=== PATIENT | male | born 1965 | race Caucasian/White ===

== ENCOUNTER 2024-10-01 19:16 | Inpatient (IN) ==
--- NOTE | 2024-10-01 19:46 | Emergency Department Note ---
Impression & Plan Adrenal insufficiency, Hypokalemia, Low magnesium level, Generalized weakness ED Provider Note NAME: BRENNEN BLOOM AGE: 58 SEX: M : 1965 ARRIVES VIA: Walk-In INFORMANT: Patient ED PROVIDER(S): Ganga Fuller MD CHIEF COMPLAINT: Adrenal crisis PLAN: Disposition: Admit MEDICAL DECISION MAKING: The patient is a pleasant 58-year-old gentleman with a past medical history of Ron's disease, adrenal insufficiency, CAD, hypothyroidism who presents to the emergency department for evaluation of generalized weakness, dizziness, malaise, confusion which is typical for his "adrenal crisis" per the patient's at the bedside which occurs in the setting of patient's discovering that he had not been taking his hydrocortisone for the past month as it is separate from his typical prepared pill packs from his pharmacy. 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 She reports she wanted them, earlier in the week and even called EMS but he had declined transport. The any fevers, cough, congestion, GI or symptoms. On evaluation the patient is fatigued appearing with stress, afebrile with blood pressure in the 90s/50s and heart rate in the upper 40s-low 50s, mentating normally at this time. He has no focal logic deficits. EKG without overt acute ischemia. CXR negative for acute cardiopulmonary process per my personal preliminary review/interpretation. WBC, H/H and platelets within normal limits. Chemistry without metabolic acidosis. Potassium 2.3 and magnesium 1.7 with IV repletion provided. LFTs unremarkable. High-sensitivity troponin 10.1, within normal limits. Lipase normal. TSH within limits. Random cortisol is 15.8. Patient was treated with IV fluid duration and IV hydrocortisone. The patient acute on chronic adrenal insufficiency with severe hypokalemia patient and agree plan for admission further management. Case was discussed with Dr. Villegas, [facility] hospitalist, who will evaluate the patient for admission. Further management per admitting team. Triage Nursing notes reviewed and agree them. Prior/external medical records reviewed Vital Signs: reviewed Differential diagnosis: Infection, dehydration, metabolic abnormality, hypo/hyperglycemia, electrolyte disturbance, anemia, hypoxia, cardiac sources, intracerebral event, toxicologic, neurologic, as well as other pathologies. ER treatment provided: See below. Diagnostics interpreted by me: ECG: Sinus bradycardia, 47 bpm, no ectopy, no overt ST elevation or depression, QTc 554 QRS 98. Cardiac Monitoring: An order for continuous cardiac monitoring was placed and demonstrated Sinus bradycardia, 47 bpm, no ectopy, Laboratory studies: See below Imaging studies: See below Consultation(s): Dr. Villegas, [facility] hospitalist HPI: The patient is a pleasant 58-year-old gentleman with a past medical history of [place]'s disease, adrenal insufficiency, CAD, hypothyroidism who presents to the emergency department for evaluation of generalized weakness, dizziness, malaise, confusion which is typical for his "adrenal crisis" per the patient's at the bedside which occurs in the setting of patient's discovering that he had not been taking his hydrocortisone for the past month as it is separate from his typical prepared pill packs from his pharmacy. 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 She reports she wanted them, earlier in the week and even called EMS but he had declined transport. The any fevers, cough, congestion, GI or symptoms. ROS: See above HPI for pertinent positives & negatives. A total of 10 systems reviewed and were otherwise negative. VITALS:See Below PHYSICAL EXAMINATION: GENERAL: Awake, alert, fatigued-appearing, in no distress HENT: Normocephalic, atraumatic. Oropharynx with dry mucous membranes and otherwise unremarkable. EYES: Normal conjunctiva. Sclera non-icteric. EOMI. No nystamgus. PEARRL. NECK: Supple. No nuchal rigidity. FROM. No JVD. RESPIRATORY: Clear to auscultation. CARDIAC: Regular rate, normal rhythm. Extremities warm and well perfused. Pulses equal. ABDOMEN: Soft, non-distended. No tenderness to palpation. No rebound or guarding. No masses. MUSCULOSKELETAL: Chest examination reveals no tenderness. The back is symmetrical on inspection without obvious abnormality. There is no CVA tenderness to palpation. No joint edema. LOWER EXTREMITIES: Calves are equal size bilaterally and non-tender. No edema. No discoloration. NEURO: Normal sensorium. No sensory or motor deficits noted. 5/5 strength and SILT x 4 extremities. Intact finger to nose. SKIN: No rash or jaundice noted. ED COURSE: Critical Care: I have personally spent greater than 35 minutes of critical care time in the direct management of this patient. This includes bedside care, interpretation of diagnostic studies, and testing, discussion with consultants, patient, and family members, and other required patient management activities. This 35 minutes is in excess of all separately billable procedures. Ganga Fuller MD Past Med/Surg History Problem List (Updated 10/02/24 @ 03:16 by Ganga Fuller MD) Generalized weakness (Acute) Low magnesium level (Acute) Hypokalemia (Acute) Hypokalemia Adrenomyeloneuropathy Depression Osteoporosis Adrenal insufficiency (Acute) Adreno-leukodystrophy Vitamin D deficiency B12 deficiency Coronary heart disease Mixed hyperlipidemia Chronic back pain Hypogonadotropic hypogonadism in male Complex regional pain syndrome of right upper extremity Hypothyroidism Peripheral neuropathy Chronic pain Medical History Lumbar radiculopathy IBS (irritable bowel syndrome) Nephrolithiasis JOSEPHINE (generalized anxiety disorder) Carpal tunnel syndrome Brachial plexopathy Surgical History H/O shoulder surgery H/O arthroscopy of shoulder Status post double vessel coronary artery bypass Family History Father Heart disease Mother Breast cancer Stroke Social History Smoking Status: Never smoker Tobacco Type: Smokeless Tobacco (Dip or Chew) Cigarettes Per Day: 1 can per day; Second Hand Exposure: No; Do You Dip or Chew Tobacco: Yes; Tobacco Cessation Education Requested by Patient: No Hx Alcohol Use: No Hx Substance Use: No Preferred Language: Greek Communication Ability: Effective Patch Driller Required: No Beliefs That Will Affect Care: None Current Living Situation: Spouse Other Information That Helps Us Care for You: No Feels Safe at Home: Yes Assistive Devices: Walker Allergies Allergies Allergy/AdvReac Type Severity Reaction Status Date / Time No Known Drug Allergies Allergy Verified 08/07/24 15:03 Home Meds Home Medications Medication Instructions Recorded Confirmed aspirin 81 mg tablet,delayed 81 mg PO DAILY 12/22/22 10/01/24 release (Adult Aspirin Regimen) atorvastatin 80 mg tablet 80 mg PO QPM 12/22/22 10/01/24 cyanocobalamin (vitamin B-12) 1,000 mcg IM MONTHLY 12/22/22 10/01/24 1,000 mcg/mL injection solution fludrocortisone 0.1 mg tablet 0.1 mg PO DAILY 12/22/22 10/01/24 pantoprazole 40 mg tablet,delayed 40 mg PO DAILY 12/22/22 10/01/24 release (Protonix) gabapentin 400 mg capsule 800 mg PO TID 04/03/23 10/01/24 metoprolol succinate 25 mg 12.5 mg PO DAILY 04/03/23 10/01/24 tablet,extended release 24 hr (Toprol XL) sacubitril 49 mg-valsartan 51 mg 1 tab PO BID 08/23/23 10/01/24 tablet (Entresto) cholecalciferol (vitamin D3) 25 25 mcg PO HS 04/12/24 10/01/24 mcg (1,000 unit) capsule (Vitamin D3) dapagliflozin propanediol 10 mg 10 mg PO DAILY 04/12/24 10/01/24 tablet (Farxiga) duloxetine 60 mg capsule,delayed 60 mg PO DAILY 04/12/24 10/01/24 release ergocalciferol (vitamin D2) 1,250 1,250 mcg PO WK 04/12/24 10/01/24 mcg (50,000 unit) capsule evolocumab 420 mg/3.5 mL 420 mg subcut MONTHLY 04/12/24 10/01/24 subcutaneous wearable injector (Repatha Pushtronex) duloxetine 30 mg capsule,delayed 30 mg PO DAILY 10/01/24 10/01/24 release Previous Rx's Medication Instructions Recorded hydrocortisone 10 mg tablet 20 mg (2 x 10 mg) PO DAILY #240 12/27/23 tabs levothyroxine 50 mcg tablet 50 mcg PO DAILY #90 tabs 07/10/24 baclofen 10 mg tablet 10 mg PO BID #60 tabs 07/19/24 Results & Data (ED) Vital Signs Vital Signs - 24 hr 10/01/24 19:16 10/01/24 19:22 10/01/24 19:38 Temperature 36.5 C Temperature Source Oral Pulse Rate 58 L 48 L Pulse Rate [Right Finger] 48 L Pulse Rhythm Regular Pulse Strength Normal Respiratory Rate 14 18 Respiratory Effort / Characteristics Non-Labored Non-Labored Spontaneous Respiratory Depth Normal Normal Respiratory Pattern Regular Regular Blood Pressure 96/58 L Blood Pressure [Right Arm] 93/62 L Blood Pressure Mean 70 Blood Pressure Mean [Right Arm] 72 Blood Pressure Position Sitting Blood Pressure Position [Right Arm] Lying Pulse Oximetry 95 99 Oxygen Delivery Method Room Air Room Air Sepsis Recent Fever Within 48 Hours No Sepsis New/Unexplained Change in Mental Status N/A Sepsis Action Taken by Nursing No Action Required 10/01/24 19:45 10/01/24 21:16 Temperature Temperature Source Pulse Rate 48 L Pulse Rate [Right Finger] 48 L Pulse Rhythm Pulse Strength Respiratory Rate 16 14 Respiratory Effort / Characteristics Non-Labored Respiratory Depth Normal Respiratory Pattern Regular Blood Pressure Blood Pressure [Right Arm] 91/60 L Blood Pressure Mean Blood Pressure Mean [Right Arm] 70 Blood Pressure Position Blood Pressure Position [Right Arm] Pulse Oximetry 95 97 Oxygen Delivery Method Room Air Room Air Sepsis Recent Fever Within 48 Hours Sepsis New/Unexplained Change in Mental Status Sepsis Action Taken by Nursing Laboratory Data Attestation: I reviewed the patient's lab results. 10/01/24 19:55 10/01/24 19:55 Lab Results 10/01/24 Range/Units 19:55 WBC 7.44 (4.8-10.8) K/ul RBC 4.76 (4.70-6.10) M/uL Hgb 15.9 (14.0-18.0) g/dl Hct 43.0 (42.0-52.0) % MCV 90.3 (80.0-100.0) fL MCH 33.4 (25.0-34.0) pg MCHC 37.0 H (32.0-36.0) g/dL RDW Std Deviation 49.9 H (36.4-46.3) fL RDW Coeff of Kale 15.1 H (11.5-14.5) % Plt Count 264 (130-400) K/uL MPV 10.9 (9.4-12.4) fL Immature Gran % (Auto) 0.3 % Neut % (Auto) 72.7 % Lymph % (Auto) 19.0 % [place] % (Auto) 6.7 % Eos % (Auto) 0.8 % Baso % (Auto) 0.5 % Neut # (Auto) 5.41 (1.40-6.50) K/uL Lymph # (Auto) 1.41 (1.20-3.40) K/uL [place] # (Auto) 0.50 (0.11-0.59) K/uL Eos # (Auto) 0.06 (0.00-0.50) K/uL Baso # (Auto) 0.04 (0.00-0.20) K/uL Immature Gran # (Auto) 0.02 (0.01-0.20) K/uL PT 11.3 (9.0-12.0) Seconds INR 1.0 (0.9-1.1) Sodium 135 L (136-145) mmol/L Potassium 2.3 L* (3.5-5.1) mmol/L Chloride 97 L (98-107) mmol/L Carbon Dioxide 29 (21-32) mmol/L Anion Gap 9 (3-11) BUN 10 (6-23) mg/dl Creatinine 1.07 (0.6-1.4) mg/dl Est Cr Clr Drug Dosing 77.7 ml/min eGFR 80.44 BUN/Creatinine Ratio 9.3 L (10-20) Glucose 116 H (70-99(Fasting)) mg/dl Osmolality 279 L (280-300) mOsm/kg Calcium 9.0 (8.6-10.3) mg/dl Magnesium 1.7 (1.7-2.4) mg/dl Total Bilirubin 1.8 H (0.2-1.0) mg/dl AST 27 (13-39) U/L ALT 9 (7-52) U/L Alkaline Phosphatase 65 (34-104) U/L Total Creatine Kinase 83 (30-223) U/L Troponin I High Sens 10.1 (0-20) pg/ml Total Protein 6.2 (6.0-8.3) gm/dl Albumin 3.4 (3.4-5.0) gm/dl Globulin 2.8 (2.5-4.0) gm/dl Albumin/Globulin Ratio 1.2 (0.9-2) Lipase 79 (11-82) U/L TSH 0.376 (0.300-4.500) uIu/ml Random Cortisol 15.85 mcg/dl Administered Medications Enoxaparin Sodium (Enoxaparin Inj 40 Mg/0.4 Ml Syr) 40 mg SQ HS [place] Stop: 10/31/24 23:29 Last Admin: 10/01/24 23:56 Dose: 40 mg Documented By: PAG Lactated Ringer's (Lr) 1,000 mls @ 125 mls/hr IV .Q8H [place] Stop: 10/02/24 22:30 Last Admin: 10/01/24 23:55 Dose: 125 mls/hr Documented By: PAG Hydrocortisone Sodium (Succinate 50 mg/ Syringe) 1 mls @ 4 mls/min IV Q6H [place] Stop: 11/01/24 01:59 Last Admin: 10/02/24 02:15 Dose: 4 mls/min Documented By: PAG Discontinued Medications Hydrocortisone Sodium Succinate (Hydrocortisone Sod Succinate 100 Mg/2 Ml Vial) 100 mg IV NOW STA Stop: 10/01/24 19:48 Last Admin: 10/01/24 20:13 Dose: 100 mg Documented By: TRELL Sodium Chloride (Nss) 500 mls @ 999 mls/hr IV .Q31M ONE Stop: 10/01/24 20:17 Last Infusion: 10/01/24 21:07 Dose: Infused Documented By: Admin: 10/01/24 20:13 Dose: 999 mls/hr Documented By: PAG Potassium Chloride (K Eliu / Wtr) 10 meq in 100 mls @ 100 mls/hr IV Q1H [place]; Protocol Stop: 10/01/24 23:14 Last Infusion: 10/02/24 00:54 Dose: Infused Documented By: Admin: 10/01/24 23:07 Dose: 100 mls/hr Documented By: Infusion: 10/01/24 22:21 Dose: Infused Documented By: Admin: 10/01/24 21:19 Dose: 100 mls/hr Documented By: PAG Magnesium Sulfate/Dextrose (Magnesium Sulfate / D5w) 1 gm in 100 mls @ 100 mls/hr IV NOW STA Stop: 10/01/24 22:07 Last Infusion: 10/01/24 22:21 Dose: Infused Documented By: Admin: 10/01/24 21:19 Dose: 100 mls/hr Documented By: PAG Sodium Chloride (Nss) 500 mls @ 999 mls/hr IV .Q31M ONE Stop: 10/01/24 21:51 Last Admin: 10/01/24 23:05 Dose: Not Given Documented By: PAG Potassium Chloride (Potassium Chloride Crtab 20 Meq Tabcr) 20 meq PO NOW STA Stop: 10/01/24 21:08 Last Admin: 10/01/24 21:19 Dose: 20 meq Documented By: TRELL Potassium Chloride (Potassium Chloride Crtab 20 Meq Tabcr) 60 meq PO NOW STA Stop: 10/01/24 23:26 Last Admin: 10/01/24 23:55 Dose: 60 meq Documented By: TRELL Imaging Data Radiologist's Impression: Chest X-Ray 10/01/24 19:45 Exam(s): XR CXR 1 VIEW EXAM: XR Chest, 1 View CLINICAL HISTORY: Reason for exam: weak. TECHNIQUE: Frontal view of the chest. COMPARISON: No relevant prior studies available. FINDINGS: Lungs: Unremarkable. No consolidation. Pleural space: Unremarkable. No pneumothorax. Heart: Unremarkable. No cardiomegaly. Mediastinum: Unremarkable. Normal mediastinal contour. Bones/joints: Unremarkable. No acute fracture. IMPRESSION: Normal chest x-ray. Electronically signed by: Mulugeta Pryor MD 10/01/24 21:44 PM Discharge Plan Visit Data Chief Complaint: Illness Stated Complaint: RON'S CRISIS ED Provider: Ganga Fuller Discharge Problem: Adrenal insufficiency, Hypokalemia, Low magnesium level, Generalized weakness Patient Disposition: Admitted As Inpatient Discharge Instructions Interventions: ED Discharge Assessment Last Done: 10/01/24 22:31
[2024-10-01] MEDS: HYDROCORTISONE SOD SUCCINATE 100 MG/2 ML VIAL IV STA (20:13)
[2024-10-01] MEDS: SODIUM CHLORIDE 0.9% 500 ML IV ONE ×2 (20:13→23:05)
[2024-10-01 20:17] LABS: Basophils # (auto) 0.04 K/uL (0.00-0.20); Basophils % (auto) 0.5 %; Eosinophils # (auto) 0.06 K/uL (0.00-0.50); Eosinophils % (auto) 0.8 %; Hemoglobin 15.9 g/dl (14.0-18.0); Immature Granulocytes # (auto) 0.02 K/uL (0.01-0.20); Immature Granulocytes % (auto) 0.3 %; Lymphocytes # (auto) 1.41 K/uL (1.20-3.40); Mean Corpuscular Hemoglobin 33.4 pg (25.0-34.0); Mean Corpuscular Volume 90.3 fL (80.0-100.0); Mean Platelet Volume 10.9 fL (9.4-12.4); Monocytes % (auto) 6.7 %; Neutrophils # (auto) 5.41 K/uL (1.40-6.50); Neutrophils % (auto) 72.7 %; Platelet Count 264 K/uL (130-400); RDW Coefficient of Variation 15.1 % (11.5-14.5); RDW Standard Deviation 49.9 fL (36.4-46.3); Red Blood Count 4.76 M/uL (4.70-6.10); White Blood Count 7.44 K/ul (4.8-10.8)
[2024-10-01 20:53] LABS: Albumin Globulin Ratio 1.2 (0.9-2); Albumin Level 3.4 gm/dl (3.4-5.0); BUN Creatinine Ratio 9.3 (10-20); Bilirubin,Total 1.8 mg/dl (0.2-1.0); Creatinine Clr Calc Pharmacy 77.7 ml/min; Globulin 2.8 gm/dl (2.5-4.0); Prothrombin Time 11.3 Seconds (9.0-12.0); Thyroid Stimulating Hormone 0.376 uIu/ml (0.300-4.500); Total Protein 6.2 gm/dl (6.0-8.3); Troponin I High Sensitivity 10.1 pg/ml (0-20)
[2024-10-01 21:04] LABS: Potassium 2.3 mmol/L (3.5-5.1)
[2024-10-01] MEDS: POTASSIUM CHLORIDE / WTR 10 MEQ/100 ML PLCT IV SCH (21:19)
[2024-10-01] MEDS: MAGNESIUM SULFATE / D5W 1 GM/100 ML BAG IV STA (21:19)
[2024-10-01] MEDS: POTASSIUM CHLORIDE CRTAB 20 MEQ TABCR PO STA ×2 (21:19→23:55)
--- NOTE | 2024-10-01 21:44 | XRay Report ---
Exam(s): XR CXR 1 VIEW EXAM: XR Chest, 1 View CLINICAL HISTORY: Reason for exam: weak. TECHNIQUE: Frontal view of the chest. COMPARISON: No relevant prior studies available. FINDINGS: Lungs: Unremarkable. No consolidation. Pleural space: Unremarkable. No pneumothorax. Heart: Unremarkable. No cardiomegaly. Mediastinum: Unremarkable. Normal mediastinal contour. Bones/joints: Unremarkable. No acute fracture. IMPRESSION: Normal chest x-ray. Electronically signed by: Mulugeta Pryor MD 10/01/24 21:44 PM
[2024-10-01 21:48] LABS: Magnesium 1.7 mg/dl (1.7-2.4)
[2024-10-01] MEDS ORDERED: ACETAMINOPHEN 325 MG TAB PO PRN (22:31)
--- NOTE | 2024-10-01 22:52 | History & Physical Report ---
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 Patient has not been taking his hydrocortisone at home for the past month. His has started him on Hydrocortisone 80mg po daily a few days ago. He has been taking his Fludrocortisone. Hypotensive and bradycardic on arrival, however, mentating and able to answer questions. Hemodynamics have improved after administration of Hydrocortisone 100mg IV. He does remain bradycardic. Random cortisol is not overly depressed = 15.63 Patient follows with Endocrine - last seen 08/07/24 -Admit to medical with telemetry -Hydrocortisone 100mg IV given in the ER -Will continue stress dose steroids with Hydrocortisone 50mg IV q 6 hours -Continue Fludrocortisone -Potassium repletion (2) Chronic pain: Plan: Patient with longstanding history of neuropathy and complex regional pain syndrome. His pain has been debilitating - difficulty with ambulation, getting out of bed. Symptoms contributing to significant depression. Patient is on Gabapentin as well as Duloxetine but has missed multiple doses of his medications over the last month. -Resume Gabapentin. He is written for 800mg po TID. Will initiate 300mg po TID for now - advance to prior dose of 800mg po TID as tolerated -Resume Cymbalta. Patient is written for delayed release 60mg po daily then 30mg po daily. Will initiate 30mg po daily for now - increase as tolerated to prior home dose. -Tylenol as needed -PT/OT evaluations appreciated (3) Hypokalemia: Plan: Potassium = 2.3. Patient is prescribed potassium supplementation at home but has not been taking it. He has received 20mEQ PO + 20mEQ IV thus far -Administer KCl 60mg PO now -Magnesium x 1gm -Repeat chemistry in AM (4) Depression: Plan: Patient with significant depression symptoms. He is prescribed Cymbalta more for his chronic pain and does not feel that it has been helping with his depression. Cymbalta has been resumed - should increase to previously prescribed dose as tolerated -Consider initiating Remeron for anti-depressant, appetite stimulation and sleep augmentation (5) Coronary heart disease: Plan: Patient with CAD s/p CABG in 2021. Presently with no chest pain. -Continue ASA 81mg po daily -Continue Atorvastatin 80mg po qPM - of note, CK ordered for evaluation of leg weakness and discomfort, if elevated would hold statin -Hold Entresto due to hypotension -Hold Metoprolol due to hypotension -Patient is on Rapatha injections monthly (6) Hypothyroidism: Plan: Chronic. 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 Patient's is at bedside and provides ancillary history. states that over the last month patient has declined significantly. states that after an argument approximately 1 month ago patient went upstairs to his bed and has essentially remained there ever since. He has poor appetite and does not eat or drink much at all. endorses a 40# weight loss over the last month. He does not participate with any therapy or do any home exercises. He has been missing some of his medications as well. His medications are packaged in a blister pack from pharmacy which DOES NOT contain his Hydrocort isone 20mg po daily (due to potential need for variable dosing/stress dosing). Patient's reports he has been taking his blister pack medications occasionally but has not taken his hydrocortisone for the last month. Patient has developed progressive pallor, appears dry and dehydrated, fatigue, generalized weakness, episodes of confusion and cold/chills. His noticed that he had not been taking his Hydrocortisone so she started him on stress dosing 80mg po daily last week. His symptoms have not yet improved. Upon arrival to the ER patient hypotensive at 80/54, bradycardic with HR of 48. ER Course: NSS 500mL x 2 Hydrocortisone 100mg IV Potassium 20mg + [id number] IV x2 Mg x 1gm Allergies Allergy/AdvReac Type Severity Reaction Status Date / Time No Known Drug Allergies Allergy Verified 08/07/24 15:03 Home Medications Medication Instructions Recorded Confirmed Type aspirin 81 mg tablet,delayed 81 mg PO DAILY 12/22/22 10/01/24 History release (Adult Aspirin Regimen) atorvastatin 80 mg tablet 80 mg PO QPM 12/22/22 10/01/24 History cyanocobalamin (vitamin B-12) 1,000 mcg IM MONTHLY 12/22/22 10/01/24 History 1,000 mcg/mL injection solution fludrocortisone 0.1 mg tablet 0.1 mg PO DAILY 12/22/22 10/01/24 History pantoprazole 40 mg tablet,delayed 40 mg PO DAILY 12/22/22 10/01/24 History release (Protonix) gabapentin 400 mg capsule 800 mg PO TID 04/03/23 10/01/24 History metoprolol succinate 25 mg 12.5 mg PO DAILY 04/03/23 10/01/24 History tablet,extended release 24 hr (Toprol XL) sacubitril 49 mg-valsartan 51 mg 1 tab PO BID 08/23/23 10/01/24 History tablet (Entresto) hydrocortisone 10 mg tablet 20 mg (2 x 10 mg) PO DAILY #240 12/27/23 10/01/24 Rx tabs cholecalciferol (vitamin D3) 25 25 mcg PO HS 04/12/24 10/01/24 History mcg (1,000 unit) capsule (Vitamin D3) dapagliflozin propanediol 10 mg 10 mg PO DAILY 04/12/24 10/01/24 History tablet (Farxiga) duloxetine 60 mg capsule,delayed 60 mg PO DAILY 04/12/24 10/01/24 History release ergocalciferol (vitamin D2) 1,250 1,250 mcg PO WK 04/12/24 10/01/24 History mcg (50,000 unit) capsule evolocumab 420 mg/3.5 mL 420 mg subcut MONTHLY 04/12/24 10/01/24 History subcutaneous wearable injector (Repatha Pushtronex) levothyroxine 50 mcg tablet 50 mcg PO DAILY #90 tabs 07/10/24 10/01/24 Rx baclofen 10 mg tablet 10 mg PO BID #60 tabs 07/19/24 10/01/24 Rx duloxetine 30 mg capsule,delayed 30 mg PO DAILY 10/01/24 10/01/24 History release Past Med/Surg History Problem List (Updated 10/01/24 @ 23:43 by Ebony Villegas DO) Hypokalemia Adrenomyeloneuropathy Depression Osteoporosis Adrenal insufficiency (Acute) Adreno-leukodystrophy Vitamin D deficiency B12 deficiency Coronary heart disease Mixed hyperlipidemia Chronic back pain Hypogonadotropic hypogonadism in male Complex regional pain syndrome of right upper extremity Hypothyroidism Peripheral neuropathy Chronic pain Medical History Lumbar radiculopathy IBS (irritable bowel syndrome) Nephrolithiasis JOSEPHINE (generalized anxiety disorder) Carpal tunnel syndrome Brachial plexopathy Surgical History H/O shoulder surgery H/O arthroscopy of shoulder Status post double vessel coronary artery bypass Family History Father Heart disease Mother Breast cancer Stroke Social History Smoking Status: Never smoker Tobacco Type: Smokeless Tobacco (Dip or Chew) Cigarettes Per Day: 1 can per day; Second Hand Exposure: No; Do You Dip or Chew Tobacco: Yes; Tobacco Cessation Education Requested by Patient: No Hx Alcohol Use: No Hx Substance Use: No Preferred Language: Setswana Communication Ability: Effective Edge Roller Required: No Beliefs That Will Affect Care: None Current Living Situation: Spouse Other Information That Helps Us Care for You: No Feels Safe at Home: Yes Assistive Devices: Walker Review of Systems Review of Systems: All systems reviewed & are unremarkable except as noted in HPI & below Physical Exam Physical Exam: General: patient resting comfortably,chronically ill in appearance, slow to answer questions but answers appropriately, NAD Skin: +Pallor, cool to touch, no rash HEENT: NC/AT, PERRL, EOMI, anicteric sclera, conjunctiva without injection, external ear normal to inspection and nontender, nares patent, moist mucus membranes, dentition intact, no oropharyngeal lesions, neck supple, trachea midline, no LAD, no thyromegaly, no JVD Heart: +S1/S2, regular, bradycardic, no m/r/g Lungs: equal air entry bilaterally, no rales/rhonchi/wheezes Abd: +BS, soft, NT/ND, no masses/organomegaly/ascites Ext: warm, 2+ pulses in UE/LE bilaterally, no clubbing/cyanosis or edema Neuro: nonfocal, patient AA&O x 4, speech intact, no facial droop, moving all extremities on command with equal strength 5/5 Results & Data Results & Data Vital Signs (Past 12 Hours) Vital Signs Temp Pulse Pulse Resp BP BP Pulse Ox 10/01/24 22:31 46 L 16 106/61 98 10/01/24 22:08 46 L 16 111/71 99 10/01/24 21:16 48 L 14 91/60 L 97 10/01/24 19:45 48 L 16 95 10/01/24 19:38 48 L 10/01/24 19:22 36.5 C 58 L 18 96/58 L 99 10/01/24 19:16 48 L 14 93/62 L 95 O2 Del Method 10/01/24 22:31 Room Air 10/01/24 22:08 Room Air 10/01/24 21:16 Room Air 10/01/24 19:45 Room Air 10/01/24 19:38 10/01/24 19:22 Room Air 10/01/24 19:16 Room Air Laboratory Results Laboratory Results WBC 7.44 K/ul (4.8-10.8) 10/01/24 19:55 RBC 4.76 M/uL (4.70-6.10) 10/01/24 19:55 Hgb 15.9 g/dl (14.0-18.0) 10/01/24 19:55 Hct 43.0 % (42.0-52.0) 10/01/24 19:55 MCV 90.3 fL (80.0-100.0) 10/01/24 19:55 MCH 33.4 pg (25.0-34.0) 10/01/24 19:55 MCHC 37.0 g/dL (32.0-36.0) H 10/01/24 19:55 RDW Std Deviation 49.9 fL (36.4-46.3) H 10/01/24 19:55 RDW Coeff of Kale 15.1 % (11.5-14.5) H 10/01/24 19:55 Plt Count 264 K/uL (130-400) 10/01/24 19:55 MPV 10.9 fL (9.4-12.4) 10/01/24 19:55 Immature Gran % (Auto) 0.3 % 10/01/24 19:55 Neut % (Auto) 72.7 % 10/01/24 19:55 Lymph % (Auto) 19.0 % 10/01/24 19:55 [place] % (Auto) 6.7 % 10/01/24 19:55 Eos % (Auto) 0.8 % 10/01/24 19:55 Baso % (Auto) 0.5 % 10/01/24 19:55 Neut # (Auto) 5.41 K/uL (1.40-6.50) 10/01/24 19:55 Lymph # (Auto) 1.41 K/uL (1.20-3.40) 10/01/24 19:55 [place] # (Auto) 0.50 K/uL (0.11-0.59) 10/01/24 19:55 Eos # (Auto) 0.06 K/uL (0.00-0.50) 10/01/24 19:55 Baso # (Auto) 0.04 K/uL (0.00-0.20) 10/01/24 19:55 Immature Gran # (Auto) 0.02 K/uL (0.01-0.20) 10/01/24 19:55 PT 11.3 Seconds (9.0-12.0) 10/01/24 19:55 INR 1.0 (0.9-1.1) 10/01/24 19:55 Sodium 135 mmol/L (136-145) L 10/01/24 19:55 Potassium 2.3 mmol/L (3.5-5.1) L* 10/01/24 19:55 Chloride 97 mmol/L (98-107) L 10/01/24 19:55 Carbon Dioxide 29 mmol/L (21-32) 10/01/24 19:55 Anion Gap 9 (3-11) 10/01/24 19:55 BUN 10 mg/dl (6-23) 10/01/24 19:55 Creatinine 1.07 mg/dl (0.6-1.4) 10/01/24 19:55 Est Cr Clr Drug Dosing 77.7 ml/min 10/01/24 19:55 eGFR 80.44 10/01/24 19:55 BUN/Creatinine Ratio 9.3 (10-20) L 10/01/24 19:55 Glucose 116 mg/dl (70-99(Fasting)) H 10/01/24 19:55 Osmolality 279 mOsm/kg (280-300) L 10/01/24 19:55 Calcium 9.0 mg/dl (8.6-10.3) 10/01/24 19:55 Magnesium 1.7 mg/dl (1.7-2.4) 10/01/24 19:55 Total Bilirubin 1.8 mg/dl (0.2-1.0) H 10/01/24 19:55 AST 27 U/L (13-39) 10/01/24 19:55 ALT 9 U/L (7-52) 10/01/24 19:55 Alkaline Phosphatase 65 U/L (34-104) 10/01/24 19:55 Total Creatine Kinase 83 U/L (30-223) 10/01/24 19:55 Troponin I High Sens 10.1 pg/ml (0-20) 10/01/24 19:55 Total Protein 6.2 gm/dl (6.0-8.3) 10/01/24 19:55 Albumin 3.4 gm/dl (3.4-5.0) 10/01/24 19:55 Globulin 2.8 gm/dl (2.5-4.0) 10/01/24 19:55 Albumin/Globulin Ratio 1.2 (0.9-2) 10/01/24 19:55 Lipase 79 U/L (11-82) 10/01/24 19:55 TSH 0.376 uIu/ml (0.300-4.500) 10/01/24 19:55 Random Cortisol 15.85 mcg/dl 10/01/24 19:55 Impressions Chest X-Ray 10/01/24 19:45 Exam(s): XR CXR 1 VIEW EXAM: XR Chest, 1 View CLINICAL HISTORY: Reason for exam: weak. TECHNIQUE: Frontal view of the chest. COMPARISON: No relevant prior studies available. FINDINGS: Lungs: Unremarkable. No consolidation. Pleural space: Unremarkable. No pneumothorax. Heart: Unremarkable. No cardiomegaly. Mediastinum: Unremarkable. Normal mediastinal contour. Bones/joints: Unremarkable. No acute fracture. IMPRESSION: Normal chest x-ray. Electronically signed by: Mulugeta Pryor MD 10/01/24 21:44 PM ECG Additional Comments: EKG with sinus bradycardia at 47bpm, normal axis, QJ=714, QRS=98, QTc prolonged at 554, poor R wave progression, no previous studies available Code Status & VTE Plan VTE Prophylaxis Plan VTE Prophylaxis will be ordered: Yes PG Care Time/CCT Total # of Minutes Spent Total Time Spent with Patient: Total time spent is greater than 50% in coordination of care (as documented) at patient's floor/unit and/or counseling patient: Coding Level of Care Code 60245 INT INP/OBS CARE 3/75MIN Diagnoses Adrenal insufficiency E27.40 Chronic pain G89.29 Hypokalemia E87.6 Depression F32.A Coronary heart disease I25.10 Hypothyroidism E03.9
[2024-10-01] MEDS: LACTATED RINGER'S 1,000 ML IV SCH (23:55)
[2024-10-01] MEDS: ENOXAPARIN INJ 40 MG/0.4 ML SYR SQ SCH (23:56)
[2024-10-02] MEDS ORDERED: HYDROCORTISONE SOD SUCCINATE 100 MG/2 ML VIAL IV SCH (02:00)
[2024-10-02] MEDS: HYDROCORTISONE SOD 50 MG in SYRINGE 0 ML IV SCH (02:15)
[2024-10-02 04:46] LABS: Appearance Urine Clear (Clear); Bacteria Urine Automated None Seen (None Seen); Bilirubin Urine Negative (Negative); Blood Urine Trace (Negative); Cast Urine Automated 0-2 /lpf (0-2); Color Urine Yellow; Epithelial Cell Urine Auto 0-2 /hpf (0-2); Glucose Urine UA 3+ (Negative); Ketones Urine Negative (Negative); Leukocyte Esterase Urine Negative (Negative); Nitrite Urine Negative (Negative); Protein Urine Trace (Negative); Specific Gravity Urine 1.015 (1.000-1.030); Urobilinogen Urine Negative (Negative); WBC Urine Automated 0-5 /hpf (0-5)
[2024-10-02] MEDS: LEVOTHYROXINE SODIUM 50 MCG TABLET PO SCH (06:06)
[2024-10-02] MEDS: POTASSIUM CHLORIDE CRTAB 20 MEQ TABCR PO SCH ×2 (08:28→15:44)
[2024-10-02] MEDS: GABAPENTIN 300 MG CAP PO SCH (08:28)
[2024-10-02] MEDS: FLUDROCORTISONE ACETATE 0.1 MG TAB PO SCH (08:28)
[2024-10-02] MEDS: DULoxetine HCL 30 MG CAP PO SCH (08:29)
[2024-10-02] MEDS: ASPIRIN 81 MG ECTAB PO SCH (08:29)
[2024-10-02 08:59] LABS: Hematocrit (blood only) 36.3 % (42.0-52.0); Hemoglobin 13.3 g/dl (14.0-18.0); Mean Corpuscular Hemoglobin 32.8 pg (25.0-34.0); Mean Corpuscular Hgb Conc 36.6 g/dL (32.0-36.0); Mean Corpuscular Volume 89.6 fL (80.0-100.0); Mean Platelet Volume 11.1 fL (9.4-12.4); Platelet Count 246 K/uL (130-400); RDW Coefficient of Variation 14.7 % (11.5-14.5); RDW Standard Deviation 48.4 fL (36.4-46.3); Red Blood Count 4.05 M/uL (4.70-6.10); White Blood Count 6.77 K/ul (4.8-10.8)
[2024-10-02 09:10] LABS: Bilirubin Direct 0.3 mg/dl (0-0.2); Bilirubin,Total 1.5 mg/dl (0.2-1.0); Calcium 8.3 mg/dl (8.6-10.3); Creatinine Clr Calc Pharmacy 89.4 ml/min; Potassium 2.8 mmol/L (3.5-5.1); Total Protein 5.5 gm/dl (6.0-8.3)
[2024-10-02 09:27] LABS: T4 Free Thyroxine 1.49 ng/dl (0.61-1.60)
--- NOTE | 2024-10-02 12:30 | Hospitalist Progress Note ---
Date of Service October 02, 2024 Assessment & Plan (1) Adrenal insufficiency: Plan: He states he stopped taking his usual hydrocortisone several weeks ago when he ran out of tablets. He is now on intravenous hydrocortisone replacement therapy and blood pressure is stable. Oral intake is adequate and IV fluids started on admission will be discontinued. Florinef replacement continues (2) Bradycardia: Plan: Mild. Metoprolol has been discontinued on admission. Telemetry (3) Chronic pain: Plan: Continue gabapentin and Cymbalta. Patient with longstanding history of neuropathy and complex regional pain syndrome. (4) Hypokalemia: Plan: Present on admission. IV and oral supplementation. Serial labs. (5) Depression: Plan: Supportive care. Continue current medical management. (6) Coronary heart disease: Plan: CAD s/p CABG in 2021. Currently stable. Continue current medical management although Entresto is temporarily on hold and metoprolol has been discontinued due to bradycardia. (7) Hypothyroidism: Plan: Free T3 and free T4 levels are pending. TSH is low normal. Continue Synthroid Plan Hopeful discharge to home tomorrow, October 03 Admission and Anticipated Discharge Date Admission Date: October 01, 2024 Subjective Alert and oriented. No complaints. He simply states that he ran out of his medications and did not get them refilled. He has known adrenal insufficiency and has steroid dependence. He stopped taking his hydrocortisone several weeks ago. He was started on intravenous hydrocortisone on admission and the dosage is tapered down today, October 02 he is mildly bradycardic on admission and metoprolol has been placed on hold. Thyroid levels are pending. Cardiac echo is pending. Oral intake is adequate. IV fluids discontinued. Review of Systems 2 Review of Systems: Constitutionalno fever or chills. Generalized weakness ENTno blurred vision, no double vision, no epistaxis, no sore throat Respiratoryno cough, no wheezing, no shortness of breath Cardiacno palpitations, no chest pain, no syncope Lexus nausea, vomiting, diarrhea, melena, hematochezia GUno urinary retention, no urinary incontinence, no dysuria, no hematuria Musculoskeletalno joint pain, no muscle tenderness Skinno bruising, no rashes, no pruritus Neurono isolated weakness, no paresthesia Psychdepressed affect Physical Exam 2 Physical Exam: General-alert and oriented x3, no fever HEENT-head atraumatic and normocephalic, pupils equal and reactive to light, extraocular muscles intact Neck-no lymphadenopathy or thyromegaly, trachea midline Chest-clear to auscultation. No rales, wheezing or rhonchi Cardiac-mildly bradycardic regular rhythm. Normal S1 and S2 Abdomen-normal bowel sounds, no hepatosplenomegaly Extremities-no cyanosis, clubbing, or edema Neuro-cranial nerves II through XII intact, motor and sensory function within normal limits, strength symmetrical, no focal deficits Psych-depressed affect Results & Data Results & Data Vital Signs (Past 12 Hours) Vital Signs Temp Pulse Pulse Resp BP BP Pulse Ox 10/02/24 11:30 36.8 C 55 L 20 103/60 94 10/02/24 07:36 37.0 C 59 L 20 95/57 L 97 10/02/24 07:21 58 L 10/02/24 03:59 53 L 10/02/24 03:51 36.7 C 53 L 18 103/86 96 10/02/24 02:27 54 L O2 Del Method 10/02/24 11:30 Room Air 10/02/24 07:36 Room Air 10/02/24 07:21 10/02/24 03:59 10/02/24 03:51 Room Air 10/02/24 02:27 Laboratory Results 10/02/24 08:29 10/02/24 08:29 PG Care Time/CCT Total # of Minutes Spent Total Time Spent with Patient: Total time spent is greater than 50% in coordination of care (as documented) at patient's floor/unit and/or counseling patient: Coding Level of Care Code 16476 SUB INP/OBS CARE 3/50MIN Diagnoses Adrenal insufficiency E27.40 Bradycardia R00.1 Chronic pain G89.29 Hypokalemia E87.6 Depression F32.A Coronary heart disease I25.10 Hypothyroidism E03.9
[2024-10-02] MEDS: HYDROCORTISONE SOD 25 MG in SYRINGE 0 ML IV SCH (15:44)
--- NOTE | 2024-10-02 15:51 | XCELERA ---
[id number]
[2024-10-02] MEDS: ATORVASTATIN 40 MG TAB PO SCH (20:56)
[2024-10-03 07:26] LABS: BUN Creatinine Ratio 13.1 (10-20); Blood Urea Nitrogen 13 mg/dl (6-23); Calcium 8.5 mg/dl (8.6-10.3); Carbon Dioxide 28 mmol/L (21-32); Chloride 103 mmol/L (98-107); Glucose 110 mg/dl (70-99(Fasting))
[2024-10-03 08:23] LABS: Potassium 2.6 mmol/L (3.5-5.1)
[2024-10-03] MEDS: HYDROCORTISONE 10 MG TAB PO SCH (09:33)
[2024-10-03] MEDS ORDERED: POTASSIUM CHLORIDE / WTR 10 MEQ/100 ML PLCT IV SCH (10:30)
--- NOTE | 2024-10-03 10:34 | Discharge Summary ---
Discharge Summary Date of Service October 03, 2024 Principal Dx & Hospital Course #1 = Principal Diagnosis (1) Adrenal insufficiency: He states he stopped taking his usual hydrocortisone several weeks ago when he ran out of tablets. While hospitalized he received intravenous hydrocortisone replacement therapy and blood pressure is stable. He will be discharged on hydrocortisone 20 mg in the morning and 10 mg in the evening Florinef replacement continues (2) Bradycardia: Mild. Heart rate has improved off of metoprolol. Metoprolol has been discontinued on admission. Telemetry (3) Chronic pain: Continue gabapentin and Cymbalta. Patient with longstanding history of neuropathy and complex regional pain syndrome. (4) Hypokalemia: Present on admission. He received IV and oral supplementation while hospitalized. He will be discharged on potassium 20 mEq 3 times daily and will need further outpatient potassium levels drawn. (5) Depression: Supportive care. Continue current medical management. He has been seen by behavioral health. He will follow-up with psychiatry as an outpatient (6) Coronary heart disease: CAD s/p CABG in 2021. Currently stable. Continue current medical management although Entresto has been discontinued due to presence of normal ejection fraction. He is also off the metoprolol now due to bradycardia. (7) Hypothyroidism: Stable. Thyroid replacement continues unchanged Plan Home today, October 03, on hydrocortisone 20 mg in the morning and 10 mg in the evening along with potassium 20 mEq 3 times daily going forward. Follow-up with psychiatry as an outpatient for the depression. 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 Patient's is at bedside and provides ancillary history. states that over the last month patient has declined significantly. states that after an argument approximately 1 month ago patient went upstairs to his bed and has essentially remained there ever since. He has poor appetite and does not eat or drink much at all. endorses a 40# weight loss over the last month. He does not participate with any therapy or do any home exercises. He has been missing some of his medications as well. His medications are packaged in a blister pack from pharmacy which DOES NOT contain his Hydrocortisone 20mg po daily (due to potential need for variable dosing/stress dosing). Patient's reports he has been taking his blister pack medications occasionally but has not taken his hydrocortisone for the last month. Patient has developed progressive pallor, appears dry and dehydrated, fatigue, generalized weakness, episodes of confusion and cold/chills. His noticed that he had not been taking his Hydrocortisone so she started him on stress dosing 80mg po daily last week. His symptoms have not yet improved. Upon arrival to the ER patient hypotensive at 80/54, bradycardic with HR of 48. ER Course: NSS 500mL x 2 Hydrocortisone 100mg IV Potassium 20mg + [id number] IV x2 Mg x 1gm Discharge Exam General-alert and oriented x3, no fever HEENT-head atraumatic and normocephalic, pupils equal and reactive to light, extraocular muscles intact Neck-no lymphadenopathy or thyromegaly, trachea midline Chest-clear to auscultation. No rales, wheezing or rhonchi Cardiac-mildly bradycardic regular rhythm. 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 Stop taking metoprolol and stop Entresto. Take hydrocortisone 20 mg in the morning and 10 mg in the evening. Follow-up with outpatient psychiatry as directed Pending Studies at Discharge: No Stand-Alone Forms: My [employer], Smoking Cessation Medications and DC Order Prescriptions: New potassium chloride 20 mEq Tablet,Er Particles/Crystals 20 meq PO TID Qty: 100 0RF hydrocortisone [Cortef] 10 mg Tablet See Rx Instructions .ROUTE .COMPLEX Qty: 100 0RF Rx Instructions: Take 20 mg (2 tablets) every morning and 10 mg (1 tablet) in the evening Continued baclofen 10 mg tablet 10 mg PO BID Qty: 60 2RF Repatha Pushtronex 420 mg/3.5 mL wearable injector 420 mg subcut MONTHLY dapagliflozin propanediol [Farxiga] 10 mg tablet 10 mg PO DAILY duloxetine 60 mg capsule,delayed release(DR/EC) 60 mg PO DAILY cholecalciferol (vitamin D3) [Vitamin D3] 25 mcg (1,000 unit) capsule 25 mcg PO HS aspirin [Adult Aspirin Regimen] 81 mg tablet,delayed release (DR/EC) 81 mg PO DAILY atorvastatin 80 mg tablet 80 mg PO QPM cyanocobalamin (vitamin B-12) 1,000 mcg/mL solution 1,000 mcg IM MONTHLY fludrocortisone 0.1 mg tablet 0.1 mg PO DAILY pantoprazole [Protonix] 40 mg tablet,delayed release (DR/EC) 40 mg PO DAILY ergocalciferol (vitamin D2) 1,250 mcg (50,000 unit) capsule 1,250 mcg PO WK levothyroxine 50 mcg tablet 50 mcg PO DAILY Qty: 90 3RF hydrocortisone 10 mg tablet 20 mg PO DAILY Qty: 240 3RF gabapentin 400 mg capsule 800 mg PO TID duloxetine 30 mg capsule,delayed release(DR/EC) 30 mg PO DAILY Discontinued metoprolol succinate [Toprol XL] 25 mg tablet extended release 24 hr 12.5 mg PO DAILY Entresto 49-51 mg tablet 1 tab PO BID Discharge Orders: Discharge Order (Routine); Ordered 10/03/24 Ordered By: Frankie Buckner Admission Data Admit Date/Time: 10/01/24 22:04 Attending Provider: Frankie Buckner Admit Provider: Ebony Villegas Primary Care Provider: Leslye Solitario Other Providers: Ebony Villegas Hospital Stay Data Consultations 10/01/24 21:17 ED Decision to Admit Stat 10/02/24 14:33 Consult Behavioral Health Liaison Routine Pending Results Patient Have Any Pending Studies at Discharge: No Discharge Instructions Given to Patient (Per Discharging Provider) Take potassium twice daily to prevent low potassium levels. Stop taking metoprolol and stop Entresto. Take hydrocortisone 20 mg in the morning and 10 mg in the evening. Follow-up with outpatient psychiatry as directed Total Time Total Time Spent Total Time Spent (In Minutes): 50 minutes Coding Level of Care Code 90310 INP/OBS DISCH >30 MIN Diagnoses Adrenal insufficiency E27.40 Bradycardia R00.1 Chronic pain G89.29 Hypokalemia E87.6 Depression F32.A Coronary heart disease I25.10 Hypothyroidism E03.9
[2024-10-03 11:36] VITALS: RESP 12; TEMP 98.4; O2SAT 97
[2024-10-03 12:23] VITALS: BP 104/65; PULSE 51
--- NOTE | 2024-10-03 16:10 | Electrocardiogram Report ---
Test Reason : Blood Pressure : */* mmHG Vent. Rate : 47 BPM Atrial Rate : 47 BPM P-R Int : 186 ms QRS Dur : 98 ms QT Int : 626 ms P-R-T Axes : 66 0 69 degrees QTcB Int : 554 ms Sinus bradycardia Poor R wave progression, consider anterior SD vs. lead placement vs. LVH Prolonged QT Abnormal ECG No previous ECGs available Confirmed by Wilver Boykin ([id number]) on 10/03/2024 4:09:47 PM Referred By: REFERRED SELF Confirmed By: Wilver Boykin
[2024-10-03] MEDS ORDERED: HYDROCORTISONE 10 MG TAB PO SCH (21:00)
== END 2024-10-03 13:22 | disposition home or self-care (01) | DRG 642 ==
LOC: ED 19:16 → SUATTDRO 22:04 → EDINP 22:04 → 2N 10-02 03:50

== ENCOUNTER 2024-11-18 08:48 | Inpatient (IN) ==
[2024-11-18 09:19] LABS: Base Excess VBG -1.5 mEq/L; HCO3 VBG 25 mmol/L; Oxygen Saturation VBG < 60.0 %; PCO2 VBG 47 mmHg (38-50); PO2 VBG 26 mmHg; pH VBG 7.33 (7.36-7.41)
[2024-11-18] MEDS: SODIUM CHLORIDE 0.9% 1,000 ML IV ONE ×2 (09:23→09:54)
[2024-11-18 09:26] LABS: iSTAT Creatinine 1.2 mg/dl (0.6-1.3); iSTAT Ionized Calcium 1.11 mmol/l (1.12-1.32); iSTAT Potassium 3.4 mmol/L (3.3-5.0)
[2024-11-18 09:28] LABS: Basophils # (auto) 0.06 K/uL (0.00-0.20); Basophils % (auto) 0.5 %; Eosinophils # (auto) 0.09 K/uL (0.00-0.50); Eosinophils % (auto) 0.8 %; Hematocrit (blood only) 46.7 % (42.0-52.0); Hemoglobin 16.5 g/dl (14.0-18.0); Immature Granulocytes # (auto) 0.07 K/uL (0.01-0.20); Immature Granulocytes % (auto) 0.6 %; Lymphocytes # (auto) 2.34 K/uL (1.20-3.40); Mean Corpuscular Hemoglobin 32.7 pg (25.0-34.0); Mean Corpuscular Hgb Conc 35.3 g/dL (32.0-36.0); Mean Corpuscular Volume 92.7 fL (80.0-100.0); Mean Platelet Volume 10.2 fL (9.4-12.4); Monocytes # (auto) 0.74 K/uL (0.11-0.59); Monocytes % (auto) 6.6 %; Neutrophils # (auto) 7.85 K/uL (1.40-6.50); Neutrophils % (auto) 70.5 %; Nucleated RBC # (auto) 0.03 K/uL (0.00-0.12); Nucleated RBC % (auto) 0.3 %; Platelet Count 258 K/uL (130-400); RDW Coefficient of Variation 15.9 % (11.5-14.5); RDW Standard Deviation 53.4 fL (36.4-46.3); Red Blood Count 5.04 M/uL (4.70-6.10); White Blood Count 11.15 K/ul (4.8-10.8)
--- NOTE | 2024-11-18 09:41 | Emergency Department Note ---
History of Present Illness General Chief complaint: Dehydration Stated complaint: ADDISONS CRISIS,DEHYDRATION,POSSIBLE MENTAL HEALTH Time Seen by Provider: 11/18/24 09:01 Source: family ( at bedside) History of Present Illness Provider complaint: Depression adrenal crisis Maximum Pain Intensity: 5 58-year-old male with a history of depression and adrenal insufficiency presents emergency department with for depression and and adrenal crisis. reports that the patient has been severely depressed and has not taking any of his medications for the last month. She states he has not been eating or drinking. No recent falls. Patient's states that she was able to force the patient to take hydrocortisone 80 mg p.o. this a.m. at 630 before bringing him to the hospital today. Home Medications Medication Instructions Recorded Confirmed Type aspirin 81 mg tablet,delayed 81 mg PO DAILY 12/22/22 11/18/24 History release (Adult Aspirin Regimen) atorvastatin 80 mg tablet 80 mg PO QPM 12/22/22 11/18/24 History cyanocobalamin (vitamin B-12) 1,000 mcg IM MONTHLY 12/22/22 11/18/24 History 1,000 mcg/mL injection solution fludrocortisone 0.1 mg tablet 0.1 mg PO DAILY 12/22/22 11/18/24 History pantoprazole 40 mg tablet,delayed 40 mg PO DAILY 12/22/22 11/18/24 History release (Protonix) hydrocortisone 10 mg tablet 20 mg (2 x 10 mg) PO DAILY #240 12/27/23 11/18/24 Rx tabs cholecalciferol (vitamin D3) 25 25 mcg PO HS 04/12/24 11/18/24 History mcg (1,000 unit) capsule (Vitamin D3) dapagliflozin propanediol 10 mg 10 mg PO DAILY 04/12/24 11/18/24 History tablet (Farxiga) duloxetine 60 mg capsule,delayed 60 mg PO DAILY 04/12/24 11/18/24 History release ergocalciferol (vitamin D2) 1,250 1,250 mcg PO WK 04/12/24 11/18/24 History mcg (50,000 unit) capsule evolocumab 420 mg/3.5 mL 420 mg subcut MONTHLY 04/12/24 11/18/24 History subcutaneous wearable injector (Repatha Pushtronex) levothyroxine 50 mcg tablet 50 mcg PO DAILY #90 tabs 07/10/24 11/18/24 Rx baclofen 10 mg tablet 10 mg PO BID #60 tabs 07/19/24 11/18/24 Rx duloxetine 30 mg capsule,delayed 30 mg PO DAILY 10/01/24 11/18/24 History release hydrocortisone 10 mg tablet See Rx Instructions .Route 10/03/24 11/18/24 Rx (Cortef) .COMPLEX #100 tabs potassium chloride 20 mEq 20 meq PO TID #100 tabs 10/03/24 11/18/24 Rx tablet,extended release(part/cryst) levetiracetam 250 mg tablet 250 mg PO .COMPLEX #60 tabs 11/18/24 11/18/24 Rx (Keppra) Allergies Allergy/AdvReac Type Severity Reaction Status Date / Time No Known Drug Allergies Allergy Verified 11/18/24 08:02 Past Med/Surg History Problem List (Updated 11/18/24 @ 12:52 by Ramón Lucia PA-C) Noncompliance with medication regimen Depression Severe dehydration Adrenal crisis Hypotension Bradycardia Generalized weakness (Acute) Low magnesium level (Acute) Hypokalemia (Acute) Adrenomyeloneuropathy Osteoporosis Adreno-leukodystrophy Vitamin D deficiency B12 deficiency Mixed hyperlipidemia Chronic back pain Hypogonadotropic hypogonadism in male Complex regional pain syndrome of right upper extremity Peripheral neuropathy Medical History Chronic pain Depression Hypothyroidism Adrenal insufficiency Coronary heart disease Lumbar radiculopathy IBS (irritable bowel syndrome) Nephrolithiasis JOSEPHINE (generalized anxiety disorder) Carpal tunnel syndrome Brachial plexopathy Surgical History H/O shoulder surgery H/O arthroscopy of shoulder Status post double vessel coronary artery bypass Family History Father Heart disease Mother Breast cancer Stroke Social History Smoking Status: Never smoker Tobacco Type: Smokeless Tobacco (Dip or Chew) Cigarettes Per Day: 1 can per day; Second Hand Exposure: No; Do You Dip or Chew Tobacco: Yes; Hx Alcohol Use: No Hx Substance Use: No Preferred Language: Montenegrin Communication Ability: Effective Brusher Required: No Beliefs That Will Affect Care: None Current Living Situation: Spouse Feels Safe at Home: Yes Assistive Devices: Cane and Glasses Physical Exam Vital Signs Vital Signs - 24 hr 11/18/24 08:53 11/18/24 09:00 11/18/24 09:04 Temperature 36.3 C L Temperature Source Temporal Artery Scan Pulse Rate 77 66 Pulse Rate [Apical] Pulse Rate from SpO2 Sensor Pulse Rhythm [Apical] Pulse Strength [Apical] Respiratory Rate 16 Respiratory Effort / Characteristics Non-Labored Spontaneous Respiratory Depth Normal Respiratory Pattern Blood Pressure Blood Pressure [Left Arm] 89/56 L Blood Pressure Mean Blood Pressure Mean [Left Arm] 67 Blood Pressure Position [Left Arm] Pulse Oximetry 97 Oxygen Delivery Method Room Air Sepsis Recent Fever Within 48 Hours No Sepsis New/Unexplained Change in Mental Status No Sepsis Action Taken by Nursing No Action Required 11/18/24 09:06 11/18/24 09:12 11/18/24 09:15 Temperature Temperature Source Pulse Rate 64 64 Pulse Rate [Apical] Pulse Rate from SpO2 Sensor Pulse Rhythm [Apical] Pulse Strength [Apical] Respiratory Rate 19 14 Respiratory Effort / Characteristics Respiratory Depth Respiratory Pattern Blood Pressure 74/49 L Blood Pressure [Left Arm] Blood Pressure Mean 53 Blood Pressure Mean [Left Arm] Blood Pressure Position [Left Arm] Pulse Oximetry Oxygen Delivery Method Sepsis Recent Fever Within 48 Hours Sepsis New/Unexplained Change in Mental Status Sepsis Action Taken by Nursing 11/18/24 09:15 11/18/24 09:18 11/18/24 09:30 Temperature Temperature Source Pulse Rate 62 Pulse Rate [Apical] Pulse Rate from SpO2 Sensor Pulse Rhythm [Apical] Pulse Strength [Apical] Respiratory Rate 14 Respiratory Effort / Characteristics Respiratory Depth Respiratory Pattern Blood Pressure Blood Pressure [Left Arm] 74/49 L 87/52 L Blood Pressure Mean Blood Pressure Mean [Left Arm] 57 63 Blood Pressure Position [Left Arm] Pulse Oximetry Oxygen Delivery Method Sepsis Recent Fever Within 48 Hours Sepsis New/Unexplained Change in Mental Status Sepsis Action Taken by Nursing 11/18/24 09:41 11/18/24 09:58 11/18/24 10:00 Temperature Temperature Source Pulse Rate Pulse Rate [Apical] 64 60 Pulse Rate from SpO2 Sensor Pulse Rhythm [Apical] Pulse Strength [Apical] Respiratory Rate 18 20 Respiratory Effort / Characteristics Respiratory Depth Respiratory Pattern Blood Pressure 99/64 L Blood Pressure [Left Arm] 90/52 L 98/63 L Blood Pressure Mean 78 Blood Pressure Mean [Left Arm] 64 74 Blood Pressure Position [Left Arm] Pulse Oximetry 94 99 Oxygen Delivery Method Room Air Room Air Sepsis Recent Fever Within 48 Hours Sepsis New/Unexplained Change in Mental Status Sepsis Action Taken by Nursing 11/18/24 10:09 11/18/24 10:11 11/18/24 10:40 Temperature Temperature Source Pulse Rate 63 Pulse Rate [Apical] Pulse Rate from SpO2 Sensor 65 Pulse Rhythm [Apical] Pulse Strength [Apical] Respiratory Rate 13 Respiratory Effort / Characteristics Respiratory Depth Respiratory Pattern Blood Pressure 96/75 L 96/61 L Blood Pressure [Left Arm] Blood Pressure Mean 84 67 Blood Pressure Mean [Left Arm] Blood Pressure Position [Left Arm] Pulse Oximetry 99 Oxygen Delivery Method Sepsis Recent Fever Within 48 Hours Sepsis New/Unexplained Change in Mental Status Sepsis Action Taken by Nursing 11/18/24 10:42 11/18/24 11:00 11/18/24 11:25 Temperature Temperature Source Pulse Rate 70 Pulse Rate [Apical] 68 64 Pulse Rate from SpO2 Sensor 65 Pulse Rhythm [Apical] Regular Regular Pulse Strength [Apical] Normal Normal Respiratory Rate 16 16 17 Respiratory Effort / Characteristics Non-Labored Spontaneous Non-Labored Spontaneous Respiratory Depth Normal Normal Respiratory Pattern Regular Regular Blood Pressure Blood Pressure [Left Arm] 95/60 L 81/50 L Blood Pressure Mean Blood Pressure Mean [Left Arm] 71 60 Blood Pressure Position [Left Arm] Sitting Sitting Pulse Oximetry 100 99 97 Oxygen Delivery Method Room Air Room Air Sepsis Recent Fever Within 48 Hours Sepsis New/Unexplained Change in Mental Status Sepsis Action Taken by Nursing 11/18/24 11:47 11/18/24 12:23 11/18/24 12:31 Temperature Temperature Source Pulse Rate Pulse Rate [Apical] 64 66 Pulse Rate from SpO2 Sensor Pulse Rhythm [Apical] Regular Regular Pulse Strength [Apical] Normal Normal Respiratory Rate 17 18 Respiratory Effort / Characteristics Non-Labored Spontaneous Non-Labored Spontaneous Respiratory Depth Normal Normal Respiratory Pattern Regular Regular Blood Pressure Blood Pressure [Left Arm] 89/52 L 93/61 L 104/59 L Blood Pressure Mean Blood Pressure Mean [Left Arm] 64 71 74 Blood Pressure Position [Left Arm] Sitting Sitting Sitting Pulse Oximetry 100 98 Oxygen Delivery Method Room Air Room Air Sepsis Recent Fever Within 48 Hours Sepsis New/Unexplained Change in Mental Status Sepsis Action Taken by Nursing Physical Exam GENERAL: Ill-appearing. HENT: Exam performed. - Head: Normocephalic and atraumatic. CV: Normal rate, regular rhythm, normal heart sounds and intact distal pulses. There is no peripheral edema. Palpable radial pulses bue. PULM/CHEST: Effort normal and breath sounds normal. No respiratory distress. No stridor. He has no wheezes. He has no rales. - Chest Wall: He exhibits no tenderness. ABD: The abdomen is soft. NEURO: Motor and sensation grossly intact. SKIN: Malted skin. PSYCH: Bizarre affect. Course Course 09: The patient was evaluated in room A1. A complete history and physical exam was performed Cardiac monitoring: An order was placed for continuous cardiac monitoring. The monitor shows a rate of 60 with sinus rhythm interpreted by ms Bedside CHAVEZ protocol was negative for AAA, free fluid in the abdomen, or pneumothorax. 2 L normal saline bolus was ordered for the patient. 1037: Vital signs stable. Status post 2 L IV normal saline bolus the patient's blood pressure is 99/55. Patient's lactic acid is elevated at 4.3. An additional 500 cc bolus will be given to make sure that the patient gets 30 cc/kg bolus. Cefepime broad-spectrum antibiotics ordered for the patient also. Patient's sodium and potassium are within normal limits. On reexamination, the patient's pallor is improved with the multiple this but his skin is improved but still present. CHAVEZ ultrasound negative for AAA but will conduct CT of the abdomen. 1254: Vital signs stable. CT of the abdomen pelvis negative. Patient will be admitted to the hospitalist service discussed with ANSELMO who stated to admit to Dr. Jenkins Administered Medications Sodium Chloride (Nss) 500 mls @ 125 mls/hr IV .Q4H [place] Stop: 11/18/24 14:14 Last Admin: 11/18/24 11:24 Dose: 125 mls/hr Documented By: MINI Discontinued Medications Sodium Chloride (Nss) 1,000 mls @ 999 mls/hr IV .Q1H1M ONE Stop: 11/18/24 10:01 Last Infusion: 11/18/24 09:55 Dose: Infused Documented By: Admin: 11/18/24 09:23 Dose: 999 mls/hr Documented By: DARELL Sodium Chloride (Nss) 1,000 mls @ 999 mls/hr IV .Q1H1M ONE Stop: 11/18/24 10:16 Last Infusion: 11/18/24 10:44 Dose: Infused Documented By: Admin: 11/18/24 09:54 Dose: 999 mls/hr Documented By: DARELL Sodium Chloride (Nss) 500 mls @ 999 mls/hr IV .Q31M ONE Stop: 11/18/24 10:40 Last Infusion: 11/18/24 11:02 Dose: Infused Documented By: Admin: 11/18/24 10:22 Dose: 999 mls/hr Documented By: DARELL Cefepime HCl (Maxipime 2000mg) 2,000 mg in 20 mls @ 5 mls/min IV NOW STA; Protocol Stop: 11/18/24 10:14 Last Admin: 11/18/24 10:20 Dose: 5 mls/min Documented By: DARELL Ioversol (Optiray 320 100ml) 94 ml IV ONCE ONE Stop: 11/18/24 10:55 Last Admin: 11/18/24 10:54 Dose: 94 ml Documented By: ARLENE Potassium Chloride (Potassium Chloride Crtab 20 Meq Tabcr) 20 meq PO NOW STA Stop: 11/18/24 12:42 Last Admin: 11/18/24 12:53 Dose: 20 meq Documented By: MINI Critical Care Time Critical Care Time: Yes Total Critical Care Time: 56 I have personally spent greater than 56 minutes of critical care time in the direct management of this patient. This includes bedside care, interpretation of diagnostic studies, and testing, discussion with consultants, patient, and family members, and other required patient management activities. This 56 minutes is in excess of all separately billable procedures. Medical Decision Making Laboratory Data Attestation: I reviewed the patient's lab results. 11/18/24 09:10 11/18/24 09:18 Lab Results 11/18/24 11/18/24 11/18/24 Range/Units 09:07 09:10 09:14 WBC 11.15 H (4.8-10.8) K/ul RBC 5.04 (4.70-6.10) M/uL Hgb 16.5 (14.0-18.0) g/dl POC Hgb 17.0 (14.0-18.0) g/dl Hct 46.7 (42.0-52.0) % POC Hct 50 (42-52) % MCV 92.7 (80.0-100.0) fL MCH 32.7 (25.0-34.0) pg MCHC 35.3 (32.0-36.0) g/dL RDW Std Deviation 53.4 H (36.4-46.3) fL RDW Coeff of Kale 15.9 H (11.5-14.5) % Plt Count 258 (130-400) K/uL MPV 10.2 (9.4-12.4) fL Immature Gran % (Auto) 0.6 % Neut % (Auto) 70.5 % Lymph % (Auto) 21.0 % [place] % (Auto) 6.6 % Eos % (Auto) 0.8 % Baso % (Auto) 0.5 % Neut # (Auto) 7.85 H (1.40-6.50) K/uL Lymph # (Auto) 2.34 (1.20-3.40) K/uL [place] # (Auto) 0.74 H (0.11-0.59) K/uL Eos # (Auto) 0.09 (0.00-0.50) K/uL Baso # (Auto) 0.06 (0.00-0.20) K/uL Immature Gran # (Auto) 0.07 (0.01-0.20) K/uL Absolute Nucleated RBC 0.03 (0.00-0.12) K/uL Nucleated RBC % (auto) 0.3 % VBG pH 7.33 L (7.36-7.41) VBG pCO2 47 (38-50) mmHg VBG pO2 26 mmHg VBG HCO3 25 mmol/L VBG O2 Saturation < 60.0 % VBG Base Excess -1.5 mEq/L POC Sodium 132 L (135-144) mmol/L Sodium 132 L (136-145) mmol/L POC Potassium 3.4 (3.3-5.0) mmol/L Potassium TNP POC Chloride 93 L (101-112) mmol/L Chloride 91 L (98-107) mmol/L Carbon Dioxide 22 (21-32) mmol/L POC Total CO2 24 (24-31) mmol/L Anion Gap 19 H (3-11) POC Anion Gap 19.0 (16-25) mmol/L POC BUN 15 (7-18) mg/dl BUN 14 (6-23) mg/dl Creatinine 1.10 (0.6-1.4) mg/dl POC Creatinine 1.2 (0.6-1.3) mg/dl Est Cr Clr Drug Dosing 72.3 ml/min eGFR 77.81 BUN/Creatinine Ratio 12.7 (10-20) Glucose 92 (70-99(Fasting)) mg/dl POC Glucose 83 (70-99) mg/dl POC Glucose (other) 92 (70-99) mg/dl Lactate (0.4-2.0) mmol/L Calcium 10.3 (8.6-10.3) mg/dl POC Ioniz Calcium Heather 1.11 L (1.12-1.32) mmol/l Magnesium 1.7 (1.7-2.4) mg/dl Total Bilirubin 1.7 H (0.2-1.0) mg/dl AST TNP ALT 13 (7-52) U/L Alkaline Phosphatase 52 (34-104) U/L Total Protein 7.2 (6.0-8.3) gm/dl Albumin 3.6 (3.4-5.0) gm/dl Globulin 3.6 (2.5-4.0) gm/dl Albumin/Globulin Ratio 1.0 (0.9-2) TSH 4.659 H (0.300-4.500) uIu/ml Free T4 1.14 (0.61-1.60) ng/dl Urine Color Urine Appearance (Clear) Urine pH (4.5-7.5) Ur Specific [place] (1.000-1.030) Urine Protein (Negative) Urine Glucose (UA) (Negative) Urine Ketones (Negative) Urine Blood (Negative) Urine Nitrite (Negative) Urine Bilirubin (Negative) Urine Urobilinogen (Negative) Ur Leukocyte Esterase (Negative) Urine WBC (Auto) (0-5) /hpf Urine RBC (Auto) (0-2) /hpf U Hyaline Cast (Auto) (0-2) /lpf U Epithel Cells (Auto) (0-2) /hpf Urine Bacteria (Auto) (None Seen) Salicylates < 3.0 L (3.0-30) mg/dl Urine Opiates Screen (Neg) Ur Methadone, Qual (Neg) Urine Fentanyl Screen (Neg) Acetaminophen < 3 L (10-30) ug/ml Urine Barbiturates (Neg) Ur Phencyclidine (PCP) (Neg) U Amphetamin/Meth Scrn (Neg) MDMA (Ecstasy) Screen (Neg) U Benzodiazepines Scrn (Neg) Ur Cocaine Metabolite (Neg) U Marijuana (THC) Screen (Neg) Ethyl Alcohol mg/dL (<10.0) mg/dl Adenovirus (PCR) (NotDetected) B. pertussis DNA (PCR) (NotDetected) B.parapertussis DNA PCR (NotDetected) C. pneumoniae DNA (PCR) (NotDetected) Coronavirus OC43 (PCR) (NotDetected) Coronavirus HKU1 (PCR) (NotDetected) Coronavirus 229E (PCR) (NotDetected) SARS-CoV-2 (PCR) (NotDetected) Coronavirus NL63 (PCR) (NotDetected) Human Metapneumovir PCR (NotDetected) Influenza Type A (PCR) (NotDetected) Influenza Type B (PCR) (NotDetected) M. pneumoniae (PCR) (NotDetected) Parainfluenza 1 (PCR) (NotDetected) Parainfluenza 2 (PCR) (NotDetected) Parainfluenza 3 (PCR) (NotDetected) Parainfluenza 4 (PCR) (NotDetected) RSV (PCR) (NotDetected) Entero/Rhino (PCR) (NotDetected) 11/18/24 11/18/24 11/18/24 Range/Units 09:18 09:25 11:27 WBC (4.8-10.8) K/ul RBC (4.70-6.10) M/uL Hgb (14.0-18.0) g/dl POC Hgb (14.0-18.0) g/dl Hct (42.0-52.0) % POC Hct (42-52) % MCV (80.0-100.0) fL MCH (25.0-34.0) pg MCHC (32.0-36.0) g/dL RDW Std Deviation (36.4-46.3) fL RDW Coeff of Kale (11.5-14.5) % Plt Count (130-400) K/uL MPV (9.4-12.4) fL Immature Gran % (Auto) % Neut % (Auto) % Lymph % (Auto) % [place] % (Auto) % Eos % (Auto) % Baso % (Auto) % Neut # (Auto) (1.40-6.50) K/uL Lymph # (Auto) (1.20-3.40) K/uL [place] # (Auto) (0.11-0.59) K/uL Eos # (Auto) (0.00-0.50) K/uL Baso # (Auto) (0.00-0.20) K/uL Immature Gran # (Auto) (0.01-0.20) K/uL Absolute Nucleated RBC (0.00-0.12) K/uL Nucleated RBC % (auto) % VBG pH (7.36-7.41) VBG pCO2 (38-50) mmHg VBG pO2 mmHg VBG HCO3 mmol/L VBG O2 Saturation % VBG Base Excess mEq/L POC Sodium (135-144) mmol/L Sodium (136-145) mmol/L POC Potassium (3.3-5.0) mmol/L Potassium 3.4 L POC Chloride (101-112) mmol/L Chloride (98-107) mmol/L Carbon Dioxide (21-32) mmol/L POC Total CO2 (24-31) mmol/L Anion Gap (3-11) POC Anion Gap (16-25) mmol/L POC BUN (7-18) mg/dl BUN (6-23) mg/dl Creatinine (0.6-1.4) mg/dl POC Creatinine (0.6-1.3) mg/dl Est Cr Clr Drug Dosing ml/min eGFR BUN/Creatinine Ratio (10-20) Glucose (70-99(Fasting)) mg/dl POC Glucose (70-99) mg/dl POC Glucose (other) (70-99) mg/dl Lactate 4.3 H* 3.8 H* (0.4-2.0) mmol/L Calcium (8.6-10.3) mg/dl POC Ioniz Calcium [place] (1.12-1.32) mmol/l Magnesium (1.7-2.4) mg/dl Total Bilirubin (0.2-1.0) mg/dl AST 31 ALT (7-52) U/L Alkaline Phosphatase (34-104) U/L Total Protein (6.0-8.3) gm/dl Albumin (3.4-5.0) gm/dl Globulin (2.5-4.0) gm/dl Albumin/Globulin Ratio (0.9-2) TSH (0.300-4.500) uIu/ml Free T4 (0.61-1.60) ng/dl Urine Color Urine Appearance (Clear) Urine pH (4.5-7.5) Ur Specific [place] (1.000-1.030) Urine Protein (Negative) Urine Glucose (UA) (Negative) Urine Ketones (Negative) Urine Blood (Negative) Urine Nitrite (Negative) Urine Bilirubin (Negative) Urine Urobilinogen (Negative) Ur Leukocyte Esterase (Negative) Urine WBC (Auto) (0-5) /hpf Urine RBC (Auto) (0-2) /hpf U Hyaline Cast (Auto) (0-2) /lpf U Epithel Cells (Auto) (0-2) /hpf Urine Bacteria (Auto) (None Seen) Salicylates (3.0-30) mg/dl Urine Opiates Screen (Neg) Ur Methadone, Qual (Neg) Urine Fentanyl Screen (Neg) Acetaminophen (10-30) ug/ml Urine Barbiturates (Neg) Ur Phencyclidine (PCP) (Neg) U Amphetamin/Meth Scrn (Neg) MDMA (Ecstasy) Screen (Neg) U Benzodiazepines Scrn (Neg) Ur Cocaine Metabolite (Neg) U Marijuana (THC) Screen (Neg) Ethyl Alcohol mg/dL < 10.0 (<10.0) mg/dl Adenovirus (PCR) Not Detected (NotDetected) B. pertussis DNA (PCR) Not Detected (NotDetected) B.parapertussis DNA PCR Not Detected (NotDetected) C. pneumoniae DNA (PCR) Not Detected (NotDetected) Coronavirus OC43 (PCR) Not Detected (NotDetected) Coronavirus HKU1 (PCR) Not Detected (NotDetected) Coronavirus 229E (PCR) Not Detected (NotDetected) SARS-CoV-2 (PCR) Not Detected (NotDetected) Coronavirus NL63 (PCR) Not Detected (NotDetected) Human Metapneumovir PCR Not Detected (NotDetected) Influenza Type A (PCR) Not Detected (NotDetected) Influenza Type B (PCR) Not Detected (NotDetected) M. pneumoniae (PCR) Not Detected (NotDetected) Parainfluenza 1 (PCR) Not Detected (NotDetected) Parainfluenza 2 (PCR) Not Detected (NotDetected) Parainfluenza 3 (PCR) Not Detected (NotDetected) Parainfluenza 4 (PCR) Not Detected (NotDetected) RSV (PCR) Not Detected (NotDetected) Entero/Rhino (PCR) Not Detected (NotDetected) 11/18/24 Range/Units 11:37 WBC (4.8-10.8) K/ul RBC (4.70-6.10) M/uL Hgb (14.0-18.0) g/dl POC Hgb (14.0-18.0) g/dl Hct (42.0-52.0) % POC Hct (42-52) % MCV (80.0-100.0) fL MCH (25.0-34.0) pg MCHC (32.0-36.0) g/dL RDW Std Deviation (36.4-46.3) fL RDW Coeff of Kale (11.5-14.5) % Plt Count (130-400) K/uL MPV (9.4-12.4) fL Immature Gran % (Auto) % Neut % (Auto) % Lymph % (Auto) % [place] % (Auto) % Eos % (Auto) % Baso % (Auto) % Neut # (Auto) (1.40-6.50) K/uL Lymph # (Auto) (1.20-3.40) K/uL [place] # (Auto) (0.11-0.59) K/uL Eos # (Auto) (0.00-0.50) K/uL Baso # (Auto) (0.00-0.20) K/uL Immature Gran # (Auto) (0.01-0.20) K/uL Absolute Nucleated RBC (0.00-0.12) K/uL Nucleated RBC % (auto) % VBG pH (7.36-7.41) VBG pCO2 (38-50) mmHg VBG pO2 mmHg VBG HCO3 mmol/L VBG O2 Saturation % VBG Base Excess mEq/L POC Sodium (135-144) mmol/L Sodium (136-145) mmol/L POC Potassium (3.3-5.0) mmol/L Potassium POC Chloride (101-112) mmol/L Chloride (98-107) mmol/L Carbon Dioxide (21-32) mmol/L POC Total CO2 (24-31) mmol/L Anion Gap (3-11) POC Anion Gap (16-25) mmol/L POC BUN (7-18) mg/dl BUN (6-23) mg/dl Creatinine (0.6-1.4) mg/dl POC Creatinine (0.6-1.3) mg/dl Est Cr Clr Drug Dosing ml/min eGFR BUN/Creatinine Ratio (10-20) Glucose (70-99(Fasting)) mg/dl POC Glucose (70-99) mg/dl POC Glucose (other) (70-99) mg/dl Lactate (0.4-2.0) mmol/L Calcium (8.6-10.3) mg/dl POC Ioniz Calcium [place] (1.12-1.32) mmol/l Magnesium (1.7-2.4) mg/dl Total Bilirubin (0.2-1.0) mg/dl AST ALT (7-52) U/L Alkaline Phosphatase (34-104) U/L Total Protein (6.0-8.3) gm/dl Albumin (3.4-5.0) gm/dl Globulin (2.5-4.0) gm/dl Albumin/Globulin Ratio (0.9-2) TSH (0.300-4.500) uIu/ml Free T4 (0.61-1.60) ng/dl Urine Color Yellow Urine Appearance Clear (Clear) Urine pH 6.5 (4.5-7.5) Ur Specific [place] 1.018 (1.000-1.030) Urine Protein Negative (Negative) Urine Glucose (UA) 1+ H (Negative) Urine Ketones 1+ H (Negative) Urine Blood Trace H (Negative) Urine Nitrite Negative (Negative) Urine Bilirubin Negative (Negative) Urine Urobilinogen Negative (Negative) Ur Leukocyte Esterase Negative (Negative) Urine WBC (Auto) 0-5 (0-5) /hpf Urine RBC (Auto) 3-5 H (0-2) /hpf U Hyaline Cast (Auto) 0-2 (0-2) /lpf U Epithel Cells (Auto) 0-2 (0-2) /hpf Urine Bacteria (Auto) None Seen (None Seen) Salicylates (3.0-30) mg/dl Urine Opiates Screen Neg (Neg) Ur Methadone, Qual Neg (Neg) Urine Fentanyl Screen Neg (Neg) Acetaminophen (10-30) ug/ml Urine Barbiturates Neg (Neg) Ur Phencyclidine (PCP) Neg (Neg) U Amphetamin/Meth Scrn Neg (Neg) MDMA (Ecstasy) Screen Neg (Neg) U Benzodiazepines Scrn Neg (Neg) Ur Cocaine Metabolite Neg (Neg) U Marijuana (THC) Screen Neg (Neg) Ethyl Alcohol mg/dL (<10.0) mg/dl Adenovirus (PCR) (NotDetected) B. pertussis DNA (PCR) (NotDetected) B.parapertussis DNA PCR (NotDetected) C. pneumoniae DNA (PCR) (NotDetected) Coronavirus OC43 (PCR) (NotDetected) Coronavirus HKU1 (PCR) (NotDetected) Coronavirus 229E (PCR) (NotDetected) SARS-CoV-2 (PCR) (NotDetected) Coronavirus NL63 (PCR) (NotDetected) Human Metapneumovir PCR (NotDetected) Influenza Type A (PCR) (NotDetected) Influenza Type B (PCR) (NotDetected) M. pneumoniae (PCR) (NotDetected) Parainfluenza 1 (PCR) (NotDetected) Parainfluenza 2 (PCR) (NotDetected) Parainfluenza 3 (PCR) (NotDetected) Parainfluenza 4 (PCR) (NotDetected) RSV (PCR) (NotDetected) Entero/Rhino (PCR) (NotDetected) Imaging Data Attestation: I personally reviewed and interpreted this imaging study as follows: My Impression: Chest x-ray negative. Airway clear. No pneumothorax. No consolidation. No cardiomegaly or cephalization.. No free air under the diaphragm. No fractures of the skeletal structures. Radiologist's Impression: Chest X-Ray 11/18/24 09:02 XR chest 1V portable CLINICAL HISTORY: weakness TECHNIQUE: Single frontal radiograph of the chest was obtained. Comparison: Comparison is made to chest radiograph 10/01/2024 FINDINGS: Median sternotomy wires are unchanged. The cardiomediastinal silhouette is normal. The lungs are clear. No evidence of pleural effusion or pneumothorax. IMPRESSION: No acute chest disease. ACT 112: Negative or not required by law. Electronically signed by: Luis Abrams M.D. 11/18/2024 9:46 AM Abdomen/Pelvis CT 11/18/24 10:33 CT abd pelvis IV con only CLINICAL HISTORY: hypotension TECHNIQUE: Helical axial images of the abdomen and pelvis were obtained and displayed. Automated dose lowering techniques and/or adjustment according to patient size were utilized for this exam. This exam was performed with intravenous contrast. CT DOSE: 812.97 mGy.cm COMPARISON: None available at the time of this dictation. FINDINGS: Lower chest: Bibasilar atelectasis versus scarring is seen. Liver: Focal fatty changes are noted about the falciform ligament. Gallbladder and biliary tree: No calcified gallstones. Normal caliber wall. No intra- or extrahepatic biliary ductal dilation. Pancreas: Unremarkable, no focal lesions. Spleen: Unremarkable. Adrenals: Unremarkable. Kidneys and ureters: Renal cysts are seen. There are nonobstructive renal stones. Bladder: Unremarkable. Reproductive organs: Unremarkable. Bowel: The appendix is normal. Lymph nodes Retroperitoneal: Unremarkable. Pelvic: Unremarkable. Mesenteric: Unremarkable. Peritoneum: Normal. Vessels: Atherosclerotic calcifications are seen. Abdominal wall: Right fat-containing inguinal hernia. Bones: Unremarkable. IMPRESSION: 1. No acute abnormality is seen. 2. Suspicion of bladder wall thickening, correlation for cystitis is recommended. ACT 112: Negative or not required by law. Electronically signed by: Luis Abrams M.D. 11/18/2024 11:18 AM ECG Data Attestation: I personally reviewed and interpreted this ECG as follows: Rate (beats per minute): 59 Rhythm: + normal sinus ECG Intervals/blocks: + Normal QRS, + Prolonged QT (QTc 590) and + Normal NC ECG ST segments: + Normal ST segments Comparison ECG Date: from (September 2024) Change: no significant change (Patient's EKG from September 2024 showed a QTc of 554 also.) [facility] Narrative 0901: The patient was evaluated in room A1. A complete history and physical exam was performed Cardiac monitoring: An order was placed for continuous cardiac monitoring. The monitor shows a rate of 60 with sinus rhythm interpreted by me Bedside CHAVEZ protocol was negative for AAA, free fluid in the abdomen, or pneumothorax. 2 L normal saline bolus was ordered for the patient. 1037: Vital signs stable. Status post 2 L IV normal saline bolus the patient's blood pressure is 99/55. Patient's lactic acid is elevated at 4.3. An additional 500 cc bolus will be given to make sure that the patient gets 30 cc/kg bolus. Cefepime broad-spectrum antibiotics ordered for the patient also. Patient's sodium and potassium are within normal limits. On reexamination, the patient's pallor is improved with the multiple this but his skin is improved but still present. [place] ultrasound negative for AAA but will conduct CT of the abdomen. 1254: Vital signs stable. CT of the abdomen pelvis negative. Patient will be admitted to the hospitalist service discussed with ANSELMO who stated to admit to Dr. Jenkins Impression & Plan Adrenal crisis, Severe dehydration, Lactic acidemia Discharge Plan Visit Data Chief Complaint: Dehydration Stated Complaint: ADDISONS CRISIS,DEHYDRATION,POSSIBLE MENTAL HEALTH ED Provider: Santiago Payton Discharge Problem: Adrenal crisis, Severe dehydration, Lactic acidemia Patient Disposition: Admitted As Inpatient Forms Stand Alone Forms: [facility] Prescriptions Prescriptions: No Action baclofen 10 mg tablet 10 mg PO BID Qty: 60 2RF levetiracetam [Keppra] 250 mg tablet 250 mg PO .COMPLEX Qty: 60 0RF Rx Instructions: 250mg PO QHS x 1 week; 250mg PO BID x 1 week; 250mg AM 500mg PM x 1 week; 500mg BID Repatha Pushtronex 420 mg/3.5 mL wearable injector 420 mg subcut MONTHLY dapagliflozin propanediol [Farxiga] 10 mg tablet 10 mg PO DAILY duloxetine 60 mg capsule,delayed release(DR/EC) 60 mg PO DAILY cholecalciferol (vitamin D3) [Vitamin D3] 25 mcg (1,000 unit) capsule 25 mcg PO HS aspirin [Adult Aspirin Regimen] 81 mg tablet,delayed release (DR/EC) 81 mg PO DAILY atorvastatin 80 mg tablet 80 mg PO QPM cyanocobalamin (vitamin B-12) 1,000 mcg/mL solution 1,000 mcg IM MONTHLY fludrocortisone 0.1 mg tablet 0.1 mg PO DAILY pantoprazole [Protonix] 40 mg tablet,delayed release (DR/EC) 40 mg PO DAILY ergocalciferol (vitamin D2) 1,250 mcg (50,000 unit) capsule 1,250 mcg PO WK levothyroxine 50 mcg tablet 50 mcg PO DAILY Qty: 90 3RF hydrocortisone 10 mg tablet 20 mg PO DAILY Qty: 240 3RF duloxetine 30 mg capsule,delayed release(DR/EC) 30 mg PO DAILY potassium chloride 20 mEq Tablet,Er Particles/Crystals 20 meq PO TID Qty: 100 0RF hydrocortisone [Cortef] 10 mg Tablet See Rx Instructions .ROUTE .COMPLEX Qty: 100 0RF Rx Instructions: Take 20 mg (2 tablets) every morning and 10 mg (1 tablet) in the evening Referrals Referrals: Leslye Solitario [Primary Care Provider] -
[2024-11-18 09:46] LABS: Acetaminophen < 3 ug/ml (10-30); Salicylate < 3.0 mg/dl (3.0-30)
--- NOTE | 2024-11-18 09:47 | XRay Report ---
XR chest 1V portable CLINICAL HISTORY: weakness TECHNIQUE: Single frontal radiograph of the chest was obtained. Comparison: Comparison is made to chest radiograph 10/01/2024 FINDINGS: Median sternotomy wires are unchanged. The cardiomediastinal silhouette is normal. The lungs are morris r. No evidence of pleural effusion or pneumothorax. IMPRESSION: No acute chest disease. ACT 112: Negative or not required by law. Electronically signed by: Luis Abrams M.D. 11/18/2024 9:46 AM
[2024-11-18 09:51] LABS: Alanine Aminotransferase 13 U/L (7-52); Albumin Level 3.6 gm/dl (3.4-5.0); Alkaline Phosphatase 52 U/L (34-104); Anion Gap 19 (3-11); BUN Creatinine Ratio 12.7 (10-20); Bilirubin,Total 1.7 mg/dl (0.2-1.0); Blood Urea Nitrogen 14 mg/dl (6-23); Calcium 10.3 mg/dl (8.6-10.3); Carbon Dioxide 22 mmol/L (21-32); Chloride 91 mmol/L (98-107); Creatinine Clr Calc Pharmacy 72.3 ml/min; Globulin 3.6 gm/dl (2.5-4.0); Glucose 92 mg/dl (70-99(Fasting)); Magnesium 1.7 mg/dl (1.7-2.4); Sodium 132 mmol/L (136-145); Total Protein 7.2 gm/dl (6.0-8.3)
[2024-11-18 10:03] LABS: Thyroid Stimulating Hormone 4.659 uIu/ml (0.300-4.500)
[2024-11-18] MEDS: CEFEPIME 2000MG 2,000 MG/20 ML SYR IV STA (10:20)
[2024-11-18] MEDS: SODIUM CHLORIDE 0.9% 500 ML IV ONE (10:22)
[2024-11-18 10:29] LABS: Potassium 3.4 mmol/L (3.5-5.1)
[2024-11-18 10:38] LABS: T4 Free Thyroxine 1.14 ng/dl (0.61-1.60)
[2024-11-18 10:43] LABS: Adenovirus PCR Not Detected (NotDetected); Bordetella parapertussis PCR Not Detected (NotDetected); Bordetella pertussis PCR Not Detected (NotDetected); Chlamydia pneumoniae PCR Not Detected (NotDetected); Coronavirus 229E PCR Not Detected (NotDetected); Coronavirus CoV-2 (COVID19)PCR Not Detected (NotDetected); Coronavirus HKU1 PCR Not Detected (NotDetected); Coronavirus NL63 PCR Not Detected (NotDetected); Coronavirus OC43PCR Not Detected (NotDetected); Human Metapneumovirus PCR Not Detected (NotDetected); Influenza A PCR Not Detected (NotDetected); Influenza B PCR Not Detected (NotDetected); Mycoplasma pneumoniae PCR Not Detected (NotDetected); Parainfluenza Virus 1 PCR Not Detected (NotDetected); Parainfluenza Virus 2 PCR Not Detected (NotDetected); Parainfluenza Virus 3 PCR Not Detected (NotDetected); Parainfluenza Virus 4 PCR Not Detected (NotDetected); Respiratory Syncytial VirusPCR Not Detected (NotDetected); Rhinovirus/Enterovirus PCR Not Detected (NotDetected)
[2024-11-18] MEDS: OPTIRAY 320 100ml IV ONE (10:54)
--- NOTE | 2024-11-18 10:54 | Electrocardiogram Report ---
Test Reason : Blood Pressure : */* mmHG Vent. Rate : 59 BPM Atrial Rate : 59 BPM P-R Int : 170 ms QRS Dur : 96 ms QT Int : 596 ms P-R-T Axes : 68 70 81 degrees QTcB Int : 590 ms Sinus bradycardia Prolonged QT Abnormal ECG When compared with ECG of 01-Oct-2024 20:03, Borderline criteria for Anterior infarct are no longer Present Confirmed by Mian Strange ([id number]) on 11/18/2024 10:53:27 AM Referred By: Confirmed By: Mian Strange
--- NOTE | 2024-11-18 11:19 | CT Scan Report ---
CT abd pelvis IV con only CLINICAL HISTORY: hypotension TECHNIQUE: Helical axial images of the abdomen and pelvis were obtained and displayed. Automated dose lowering techniques and/or adjustment according to patient size were utilized for this exam. This e xam was performed with intravenous contrast. CT DOSE: 812.97 mGy.cm COMPARISON: None available at the time of this dictation. FINDINGS: Lower chest: Bibasilar atelectasis versus scarring is seen. Liver: Focal fatty changes are noted about the falciform ligament. Gallbladder and biliary tree: No calcified gallstones. Normal caliber wall. No intra- or extrahepatic biliary ductal dilation. Pancreas: Unremarkable, no focal lesions. Spleen: Unremarkable. Adrenals: Unremarkable. Kidneys and ureters: Renal cysts are seen. There are nonobstructive renal stones. Bladder: Unremarkable. Reproductive organs: Unremarkable. Bowel: The appendix is normal. Lymph nodes Retroperitoneal: Unremarkable. Pelvic: Unremarkable. Mesenteric: Unremarkable. Peritoneum: Normal. Vessels: Atherosclerotic calcifications are seen. Abdominal wall: Right fat-containing inguinal hernia. Bones: Unremarkable. IMPRESSION: 1. No acute abnormality is seen. 2. Suspicion of bladder wall thickening, correlation for cystitis is recommended. ACT 112: Negative or not required by law. Electronically signed by: Luis Abrams M.D. 11/18/2024 11:18 AM
[2024-11-18] MEDS: SODIUM CHLORIDE 0.9% 500 ML IV SCH (11:24)
[2024-11-18 11:58] LABS: Appearance Urine Clear (Clear); Bacteria Urine Automated None Seen (None Seen); Bilirubin Urine Negative (Negative); Blood Urine Trace (Negative); Cast Urine Automated 0-2 /lpf (0-2); Color Urine Yellow; Epithelial Cell Urine Auto 0-2 /hpf (0-2); Glucose Urine UA 1+ (Negative); Ketones Urine 1+ (Negative); Leukocyte Esterase Urine Negative (Negative); Nitrite Urine Negative (Negative); Protein Urine Negative (Negative); Specific Gravity Urine 1.018 (1.000-1.030); Urobilinogen Urine Negative (Negative); WBC Urine Automated 0-5 /hpf (0-5); pH Urine 6.5 (4.5-7.5)
--- NOTE | 2024-11-18 11:59 | History & Physical Report ---
Date of Service November 18, 2024 Assessment & Plan (1) Adrenal crisis: Plan: Patient presented on 11/18 out of concern for adrenal crisis New onset ARTHUR, generalized fatigue, and mottled skin appearance Suspect secondary to medication noncompliance due to depression BP 64/38 on arrival IVF resuscitation with NSS 3000 mL IV BP is 104/59 at time of admission Patient's reports that he took hydrocortisone 80 mg p.o. x 1 prior to coming into the ED Hydrocortisone 50 mg IV q6h Continue fludrocortisone (2) Hypotension: Plan: Hold all antihypertensive medications for now (3) Severe dehydration: Plan: Lactate 4.3-> 3.8 on arrival While patient is hypotensive and does have a mild leukocytosis 11.15 on arrival, he is afebrile and does not endorse any infectious symptoms Not septic ED reports that they covered empirically with cefepime x 1 in the ED Continue IVF resuscitation and encourage p.o. fluid intake as tolerated (4) Depression: Plan: Patient's reports progression of worsening medication noncompliance, inactivity, and staying in bed x 6 months Multifactorial:combination of CRPS, h/o [place], and being out of work Reports no new life stressors at time of admission He denies SI, HI, or thoughts of self harm Patient is amenable to receiving psychiatry while inpatient Psych consult appreciated (5) Hyponatremia: Plan: NA 132 arrival SIADH labs ordered, pending Trend BMP (6) Hypokalemia: Plan: Mild; K 3.4 on arrival Continue K supplementation 20mEq TID Trend BMP (7) Noncompliance with medication regimen: Plan Disposition: Admit to PCU telemetry DNR/DNI Heart healthy diet VTE PPx: Lovenox 40 mg SQ q24h History of Present Illness Chief Complaint: Dehydration, SOB Primary Care Provider: Leslye Bedolla is a 58-year-old male with PMH of adrenal myelo neuropathy, adrenoleukodystrophy, CRPS, depression, hypogonadism, and mixed hyperlipidemia. He presented on 11/18 for fatigue/SOB and concern for [place]'s crisis and severe dehydration. Patient's (Olamide) at bedside provides most of the history. 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 He is not eating or drinking well at home. was fearful that he was heading into an adrenal crisis over the past few days, as he has done so in the past and was beginning to show symptoms: Generalized weakness, SOB with exertion, grogginess, and mottled skin. Patient reports that his depression has been worsening over the past several years. reports that he began to go downhill after his heart attack 3 years ago; history of his father dying of a heart attack when patient was 15 years old. Patient also has complex regional pain syndrome and chronic neuropathy in the soles of his feet; he takes gabapentin, but is currently switching to Keppra as this is not helping. Patient's helps to manage the medicine at home. She reports that he received 80 mg of p.o. hydrocortisone prior to coming in. He also took his Jardiance, Protonix, gabapentin, and fludrocortisone this morning. No recent change in medications. Patient is amenable to seeing inpatient psychiatry while he is here; he denies thoughts of self-harm, suicidal ideations, or thoughts of harming others. Patient does not use supplemental oxygen at home or CPAP at night. He endorses chewing tobacco, but denies any smoking or recent alcohol use. Patient/patient's recently adopted a 6-month-old Bern[place] mountain dog (Maxim). Patient's BP was 64/32 on arrival and there were no peripheral pulses found. At time of admission, BP is improved to 104/59. ED course: NSS 3000 mL IV Cefepime 2000 mg IV ROS: Patient endorses generalized fatigue, dizziness/lightheadedness with walking, new onset ARTHUR, chest pain (which patient believes is secondary to CRPS and incisional pain from prior cardiac procedure), and/V/D, burning with urination (chronic), and trace blood in the urine and stool (chronic). Patient denies fever, chills, night sweats, syncope, SOB at rest, chest palpitations, pleuritic CP, cough, or abdominal pain. Allergies Allergy/AdvReac Type Severity Reaction Status Date / Time No Known Drug Allergies Allergy Verified 11/18/24 08:02 Home Medications Medication Instructions Recorded Confirmed Type aspirin 81 mg tablet,delayed 81 mg PO DAILY 12/22/22 11/18/24 History release (Adult Aspirin Regimen) atorvastatin 80 mg tablet 80 mg PO QPM 12/22/22 11/18/24 History cyanocobalamin (vitamin B-12) 1,000 mcg IM MONTHLY 12/22/22 11/18/24 History 1,000 mcg/mL injection solution fludrocortisone 0.1 mg tablet 0.1 mg PO DAILY 12/22/22 11/18/24 History pantoprazole 40 mg tablet,delayed 40 mg PO DAILY 12/22/22 11/18/24 History release (Protonix) cholecalciferol (vitamin D3) 25 25 mcg PO HS 04/12/24 11/18/24 History mcg (1,000 unit) capsule (Vitamin D3) dapagliflozin propanediol 10 mg 10 mg PO DAILY 04/12/24 11/18/24 History tablet (Farxiga) duloxetine 60 mg capsule,delayed 60 mg PO DAILY 04/12/24 11/18/24 History release ergocalciferol (vitamin D2) 1,250 1,250 mcg PO WK 04/12/24 11/18/24 History mcg (50,000 unit) capsule levothyroxine 50 mcg tablet 50 mcg PO DAILY #90 tabs 07/10/24 11/18/24 Rx duloxetine 30 mg capsule,delayed 30 mg PO DAILY 10/01/24 11/18/24 History release hydrocortisone 10 mg tablet See Rx Instructions .Route 10/03/24 11/18/24 Rx (Cortef) .COMPLEX #100 tabs potassium chloride 20 mEq 20 meq PO TID #100 tabs 10/03/24 11/18/24 Rx tablet,extended release(part/cryst) baclofen 10 mg tablet 10 mg PO BID PRN Pain 11/18/24 11/18/24 History evolocumab 140 mg/mL subcutaneous 140 mg subcut Q14D 11/18/24 11/18/24 History pen injector (Repatha SureClick) levetiracetam 250 mg tablet 0 mg PO UD 11/18/24 11/18/24 History (Keppra) metoprolol succinate 25 mg 12.5 mg PO HS 11/18/24 11/18/24 History tablet,extended release 24 hr sacubitril 49 mg-valsartan 51 mg 1 tab PO BID 11/18/24 11/18/24 History tablet (Entresto) Past Med/Surg History Problem List (Updated 11/18/24 @ 13:07 by Ramón Lucia PA-C) Hyponatremia Noncompliance with medication regimen Depression Severe dehydration Adrenal crisis Hypotension Bradycardia Generalized weakness (Acute) Low magnesium level (Acute) Hypokalemia (Acute) Adrenomyeloneuropathy Osteoporosis Adreno-leukodystrophy Vitamin D deficiency B12 deficiency Mixed hyperlipidemia Chronic back pain Hypogonadotropic hypogonadism in male Complex regional pain syndrome of right upper extremity Peripheral neuropathy Medical History Chronic pain Depression Hypothyroidism Adrenal insufficiency Coronary heart disease Lumbar radiculopathy IBS (irritable bowel syndrome) Nephrolithiasis JOSEPHINE (generalized anxiety disorder) Carpal tunnel syndrome Brachial plexopathy Surgical History H/O shoulder surgery H/O arthroscopy of shoulder Status post double vessel coronary artery bypass Family History Father Heart disease Mother Breast cancer Stroke Social History Smoking Status: Never smoker Tobacco Type: Smokeless Tobacco (Dip or Chew) Cigarettes Per Day: 1 can per day; Second Hand Exposure: No; Do You Dip or Chew Tobacco: Yes; Hx Alcohol Use: No Hx Substance Use: No Preferred Language: Slovenian Communication Ability: Effective Production Tech Required: No Beliefs That Will Affect Care: None Current Living Situation: Spouse Feels Safe at Home: Yes Assistive Devices: Cane and Glasses Review of Systems Review of Systems: See HPI above Physical Exam Physical Exam: General: no acute distress; lethargic; at bedside; non-toxic appearing; frail appearing; cooperative; SpO2 98% on RA HEENT: normocephalic, atraumatic; no scleral icterus; PERRLA; vision and hearing grossly intact Neck: supple; trachea midline Skin: Mottled appearance; feet are cool to touch; dry without signs of tenting; no rashes, bruising, lesions, or erythema noted CV: chest wall NTP; RRR; S1/S2 normal; no murmurs/rubs/gallops; pulses intact and symmetric at radial, DP, and PT Lungs: no acute respiratory distress; symmetrical chest wall expansion; clear breath sounds across all lung shrestha w/o adventitious sounds; no wheezing ABD: Soft, NTP; BS present; no rebound/guarding; no distention MSK: no tics or fasciculations; no edema noted in the LEs b/l, nonerythematous; patient demonstrates ability to wiggle toes bilaterally Neuro: A&Ox3; normal mood and affect; fluent speech; no focal deficits; patient reports he is unable to feel sensation in his feet bilaterally BP is 104/59 when cycled in the room at time of admission Results & Data Results & Data Vital Signs (Past 12 Hours) Vital Signs Temp Pulse Pulse Resp BP BP Pulse Ox 11/18/24 11:47 64 17 89/52 L 100 11/18/24 11:25 64 17 81/50 L 97 11/18/24 11:00 68 16 95/60 L 99 11/18/24 10:42 70 16 100 11/18/24 10:40 96/61 L 11/18/24 10:11 96/75 L 11/18/24 10:09 63 13 99 11/18/24 10:00 99/64 L 11/18/24 09:58 60 20 98/63 L 99 11/18/24 09:41 64 18 90/52 L 94 11/18/24 09:30 87/52 L 11/18/24 09:18 62 14 11/18/24 09:15 74/49 L 11/18/24 09:15 74/49 L 11/18/24 09:12 64 14 11/18/24 09:06 64 19 11/18/24 09:04 66 11/18/24 09:00 89/56 L 11/18/24 08:53 36.3 C L 77 16 97 O2 Del Method 11/18/24 11:47 Room Air 11/18/24 11:25 Room Air 11/18/24 11:00 Room Air 11/18/24 10:42 11/18/24 10:40 11/18/24 10:11 11/18/24 10:09 11/18/24 10:00 11/18/24 09:58 Room Air 11/18/24 09:41 Room Air 11/18/24 09:30 11/18/24 09:18 11/18/24 09:15 11/18/24 09:15 11/18/24 09:12 11/18/24 09:06 11/18/24 09:04 11/18/24 09:00 11/18/24 08:53 Room Air Laboratory Results Abnormal lab results 11/18/24 11/18/24 11/18/24 Range/Units 09:10 09:14 09:18 WBC 11.15 H (4.8-10.8) K/ul RDW Std Deviation 53.4 H (36.4-46.3) fL RDW Coeff of Kale 15.9 H (11.5-14.5) % Neut # (Auto) 7.85 H (1.40-6.50) K/uL [place]kin # (Auto) 0.74 H (0.11-0.59) K/uL VBG pH 7.33 L (7.36-7.41) POC Sodium 132 L (135-144) mmol/L Sodium 132 L (136-145) mmol/L Potassium 3.4 L (3.5-5.1) mmol/L POC Chloride 93 L (101-112) mmol/L Chloride 91 L (98-107) mmol/L Anion Gap 19 H (3-11) Lactate 4.3 H* (0.4-2.0) mmol/L POC Ioniz Calcium Heather 1.11 L (1.12-1.32) mmol/l Total Bilirubin 1.7 H (0.2-1.0) mg/dl TSH 4.659 H (0.300-4.500) uIu/ml Urine Glucose (UA) (Negative) Urine Ketones (Negative) Urine Blood (Negative) Urine RBC (Auto) (0-2) /hpf Salicylates < 3.0 L (3.0-30) mg/dl Acetaminophen < 3 L (10-30) ug/ml 11/18/24 Range/Units 11:37 WBC (4.8-10.8) K/ul RDW Std Deviation (36.4-46.3) fL RDW Coeff of Kale (11.5-14.5) % Neut # (Auto) (1.40-6.50) K/uL [place] # (Auto) (0.11-0.59) K/uL VBG pH (7.36-7.41) POC Sodium (135-144) mmol/L Sodium (136-145) mmol/L Potassium (3.5-5.1) mmol/L POC Chloride (101-112) mmol/L Chloride (98-107) mmol/L Anion Gap (3-11) Lactate (0.4-2.0) mmol/L POC Ioniz Calcium Heather (1.12-1.32) mmol/l Total Bilirubin (0.2-1.0) mg/dl TSH (0.300-4.500) uIu/ml Urine Glucose (UA) 1+ H (Negative) Urine Ketones 1+ H (Negative) Urine Blood Trace H (Negative) Urine RBC (Auto) 3-5 H (0-2) /hpf Salicylates (3.0-30) mg/dl Acetaminophen (10-30) ug/ml Diagnostic Findings Chest X-Ray 11/18/24 09:02 XR chest 1V portable CLINICAL HISTORY: weakness TECHNIQUE: Single frontal radiograph of the chest was obtained. Comparison: Comparison is made to chest radiograph 10/01/2024 FINDINGS: Median sternotomy wires are unchanged. The cardiomediastinal silhouette is normal. The lungs are clear. No evidence of pleural effusion or pneumothorax. IMPRESSION: No acute chest disease. ACT 112: Negative or not required by law. Electronically signed by: Luis Abrams M.D. 11/18/2024 9:46 AM Abdomen/Pelvis CT 11/18/24 10:33 CT abd pelvis IV con only CLINICAL HISTORY: hypotension TECHNIQUE: Helical axial images of the abdomen and pelvis were obtained and displayed. Automated dose lowering techniques and/or adjustment according to patient size were utilized for this exam. This exam was performed with intravenous contrast. CT DOSE: 812.97 mGy.cm COMPARISON: None available at the time of this dictation. FINDINGS: Lower chest: Bibasilar atelectasis versus scarring is seen. Liver: Focal fatty changes are noted about the falciform ligament. Gallbladder and biliary tree: No calcified gallstones. Normal caliber wall. No intra- or extrahepatic biliary ductal dilation. Pancreas: Unremarkable, no focal lesions. Spleen: Unremarkable. Adrenals: Unremarkable. Kidneys and ureters: Renal cysts are seen. There are nonobstructive renal stones. Bladder: Unremarkable. Reproductive organs: Unremarkable. Bowel: The appendix is normal. Lymph nodes Retroperitoneal: Unremarkable. Pelvic: Unremarkable. Mesenteric: Unremarkable. Peritoneum: Normal. Vessels: Atherosclerotic calcifications are seen. Abdominal wall: Right fat-containing inguinal hernia. Bones: Unremarkable. IMPRESSION: 1. No acute abnormality is seen. 2. Suspicion of bladder wall thickening, correlation for cystitis is recommended. ACT 112: Negative or not required by law. Electronically signed by: Luis Abrams M.D. 11/18/2024 11:18 AM ECG Additional Comments: ECG revealed sinus bradycardia at 59 bpm; QTc 590 (caution use of QT prolonging agents) Code Status & VTE Plan Code Status DNR/DNI (discussed with both patient and patient's at bedside) VTE Prophylaxis Plan VTE Prophylaxis will be ordered: Yes Supervising Physician Co-Signing Physician Notes I personally examined the patient and verified all mahajan points of history and exam, discussed case, and agree with decision making with Des Lucia PA-C feeling okay whenever I see him. Vitals noted, in general he is awake and alert pleasant no distress. HEENT normocephalic atraumatic mucous membranes moist. Somewhat withdrawn and flat affect. Hypotensionappears to be adrenal crisis due to skipping his hydrocortisonefortunately his was able to get some hydrocortisone enema this morningcontinue stress dosing. Continue IV fluids. This already appears to be resolving. Depressionmultiple near lethal attempts of self neglectwill need to try to educate patient on how dangerous these ask our, and at the same time need to view them is at least possibly suicidalwould appreciate inpatient psychiatry input on this. DVT prophylaxisLovenox otherwise as above PG Care Time/CCT Total # of Minutes Spent Total Time Spent with Patient: Total time spent is greater than 50% in coordination of care (as documented) at patient's floor/unit and/or counseling patient: Coding [place] [address] INT INP/OBS CARE 3/75MIN Patient Type Established Medical Decision Making High Complexity Diagnoses Adrenal crisis E27.2 Hypotension due to hypovolemia E86.1 Hypotension type: hypotension due to hypovolemia Severe dehydration E86.0 Depression F32.A Hyponatremia E87.1 Hypokalemia E87.6 Noncompliance with medication regimen Z91.148 (2) Hypotension Hypotension type: hypotension due to hypovolemia Qualified Code(s): E86.1 - Hypovolemia
[2024-11-18 12:26] LABS: Amphetamines+Metham, Urine Neg (Neg); Barbiturates, Urine Neg (Neg); Benzodiazepine, Urine Neg (Neg); Cocaine, Urine Neg (Neg); Fentanyl, Urine Neg (Neg); MDMA (Ecstacy), Urine Neg (Neg); Marijuana, Urine Neg (Neg); Methadone, Urine Neg (Neg); Opiate, Urine Neg (Neg); Phencyclidine, Urine Neg (Neg)
[2024-11-18] MEDS: POTASSIUM CHLORIDE CRTAB 20 MEQ TABCR PO STA (12:53)
[2024-11-18] MEDS ORDERED: BACLOFEN 10 MG TAB PO PRN (14:41)
[2024-11-18] MEDS ORDERED: HYDROCORTISONE SOD SUCCINATE 100 MG/2 ML VIAL IV SCH (14:41)
[2024-11-18] MEDS ORDERED: ACETAMINOPHEN 325 MG TAB PO PRN (14:41)
[2024-11-18 14:55] LABS: Calcium 9.3 mg/dl (8.6-10.3); Potassium 3.4 mmol/L (3.5-5.1)
[2024-11-18 15:00] LABS: BUN Creatinine Ratio 15.7 (10-20); Creatinine Clr Calc Pharmacy 89.3 ml/min
[2024-11-18] MEDS: POTASSIUM CHLORIDE CRTAB 20 MEQ TABCR PO SCH (15:29)
[2024-11-18] MEDS: HYDROCORTISONE SOD 50 MG in SYRINGE 0 ML IV SCH (15:29)
[2024-11-18] MEDS: ATORVASTATIN 40 MG TAB PO SCH (21:00)
[2024-11-18] MEDS: ENOXAPARIN INJ 40 MG/0.4 ML SYR SQ SCH (21:01)
[2024-11-19] MEDS: LEVOTHYROXINE SODIUM 50 MCG TABLET PO SCH (05:22)
[2024-11-19 07:53] LABS: Basophils # (auto) 0.01 K/uL (0.00-0.20); Basophils % (auto) 0.1 %; Hematocrit (blood only) 40.9 % (42.0-52.0); Hemoglobin 14.2 g/dl (14.0-18.0); Immature Granulocytes # (auto) 0.06 K/uL (0.01-0.20); Immature Granulocytes % (auto) 0.6 %; Lymphocytes # (auto) 0.76 K/uL (1.20-3.40); Lymphocytes % (auto) 8.1 %; Mean Corpuscular Hemoglobin 32.8 pg (25.0-34.0); Mean Corpuscular Hgb Conc 34.7 g/dL (32.0-36.0); Mean Corpuscular Volume 94.5 fL (80.0-100.0); Mean Platelet Volume 10.4 fL (9.4-12.4); Monocytes # (auto) 0.44 K/uL (0.11-0.59); Monocytes % (auto) 4.7 %; Neutrophils # (auto) 8.12 K/uL (1.40-6.50); Neutrophils % (auto) 86.5 %; Platelet Count 244 K/uL (130-400); RDW Coefficient of Variation 16.3 % (11.5-14.5); RDW Standard Deviation 55.8 fL (36.4-46.3); Red Blood Count 4.33 M/uL (4.70-6.10); White Blood Count 9.39 K/ul (4.8-10.8)
[2024-11-19 08:22] LABS: Calcium 9.4 mg/dl (8.6-10.3); Creatinine Clr Calc Pharmacy 79.5 ml/min; Magnesium 1.6 mg/dl (1.7-2.4); Potassium 4.4 mmol/L (3.5-5.1)
[2024-11-19] MEDS: PANTOprazole 40 MG TAB PO SCH (09:06)
[2024-11-19] MEDS: DULoxetine HCL 60 MG CAP PO SCH (09:06)
[2024-11-19] MEDS: DULoxetine HCL 30 MG CAP PO SCH (09:06)
[2024-11-19] MEDS: FLUDROCORTISONE ACETATE 0.1 MG TAB PO SCH (09:06)
[2024-11-19] MEDS: ASPIRIN 81 MG ECTAB PO SCH (09:06)
[2024-11-19] MEDS: MAGNESIUM SULFATE / D5W 1 GM/100 ML BAG IV SCH (09:17)
--- NOTE | 2024-11-19 10:31 | Psychiatric Consultation ---
Date of Consultation November 19, 2024 Impression / Recommendations Impression Diagnostically consistent with unspecified depression-presentation consistent with likely hypoactive delirium given confusion/lack of orientation and/or severe major depression given significant latency of speech with possible psychotic features given thought disorganization and possible hallucinations/internal preoccupation. However, further collateral from his will be helpful to further elucidate recent symptoms. No evidence for catatonia at this time but should remain on differential given report of recent poor intake and latent speech. For now would address underlying medical conditions with goal of resolving suspected delirium component and continuing duloxetine and then will be able to better determine what additional medications may be needed for depression (i.e. antipsychotic or ativan trial or additional depression augmentation). Overall, I spent a total of 60 minutes with this case including review of chart records, review of labwork, review of EKG QTc, direct evaluation of the patient at bedside, counseling the patient, discussion of the patient with the hospitalist provider, discussion with the psychiatric liason during clinical rounds and documentation in the electronic health record. (1) Depression: (2) Severe dehydration: (3) Adrenal crisis: (4) Generalized weakness: Plan -Given report of recent medication non-adherence may need to consider lowering dose of duloxetine to 30mg for 3-4 days and then increasing to 60mg for 2-3 days and then increasing back to 90mg to reduce likelihood of side effects such as GI distress and RODRIGUEZ -He may not leave AMA given depression and unclear if his recent refusal of care was related to suicidal ideation -No 1:1 required at this time as he denies current SI but if this changes then 1-on-1 and suicide precautions should be initiated Psych History Identifying Data 58 yo man with a history of adrenal myelo neuropathy, adrenoleukodystrophy, CRPS, depression, hypogonadism, and mixed hyperlipidemia admitted medically with concern for Vermilion's crisis and dehydration. Psychiatry consulted for concern for depression contributing to medication non-adherence. Chief Complaint "Trying to eat some of the questions I asked". History of Present Illness Chioma was brought to the hospital by his . 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 He is not eating or drinking well at home. was fearful that he was heading into an adrenal crisis over the past few days, as he has done so in the past and was beginning to show symptoms: Generalized weakness, SOB with exertion, grogginess, and mottled skin. Patient reports that his depression has been worsening over the past several years. reports that he began to go downhill after his heart attack 3 years ago; history of his father dying of a heart attack when patient was 15 years old. Patient also has complex regional pain syndrome and chronic neuropathy in the soles of his feet; he takes gabapentin, but is currently switching to Keppra as this is not helping. Patient's helps to manage the medicine at home. She reports that he received 80 mg of p.o. hydrocortisone prior to coming in. He also took his Jardiance, Protonix, gabapentin, and fludrocortisone this morning. No recent change in medications. Patient is amenable to seeing inpatient psychiatry while he is here; he denies thoughts of self-harm, suicidal ideations, or thoughts of harming others." Additional information per psych liason note from 11/18/2024: "Met with patient for consult service. Partial info was gathered before pt became too tired. Willing to speak with liaison at this time. Patient having some confusion. Alert and oriented to person. Didn't answer when asked where he is. Gave the incorrect date including year. Pleasant and cooperative. Slow to move and answer questions. Speech is soft, mumbling at times. Pt states depression for the last seven years but could not state the reason. When asked about SI pt state having passive thoughts of not wanting to be here. Pt denies any thoughts to harm self. When asked about hallucinations, he states "I've seen some shit that wasn't there." Pt could not elaborate what he saw or when he was having hallucinations. Pt eventually stated "something is going on." This liaison asked pt what was wrong. Pt then took a long pause then stated "I can't drink." Liaison helped pt get a drink from his bed side table. Pt started to shut his eyes and said he was tired. Pt aware liaison to see him at another time to get more info which pt was agreeable. This liaison spoke to pt's RN regarding his passive SI statement but denying intent to harm self. Pt feeling safe with himself currently." Today he presents with blunted affect, loosened associations and significant speech latency. Cannot answer orientation questions, responds with statement per chief complaint. Seems he was trying to state that he was working on swallowing his pills. He did consent for his to be contacted for additional collateral. Allergies Allergy/AdvReac Type Severity Reaction Status Date / Time No Known Drug Allergies Allergy Verified 11/18/24 08:02 Home Medications Medication Instructions Recorded Confirmed Type aspirin 81 mg tablet,delayed 81 mg PO DAILY 12/22/22 11/18/24 History release (Adult Aspirin Regimen) atorvastatin 80 mg tablet 80 mg PO QPM 12/22/22 11/18/24 History cyanocobalamin (vitamin B-12) 1,000 mcg IM MONTHLY 12/22/22 11/18/24 History 1,000 mcg/mL injection solution fludrocortisone 0.1 mg tablet 0.1 mg PO DAILY 12/22/22 11/18/24 History pantoprazole 40 mg tablet,delayed 40 mg PO DAILY 12/22/22 11/18/24 History release (Protonix) cholecalciferol (vitamin D3) 25 25 mcg PO HS 04/12/24 11/18/24 History mcg (1,000 unit) capsule (Vitamin D3) dapagliflozin propanediol 10 mg 10 mg PO DAILY 04/12/24 11/18/24 History tablet (Farxiga) duloxetine 60 mg capsule,delayed 60 mg PO DAILY 04/12/24 11/18/24 History release ergocalciferol (vitamin D2) 1,250 1,250 mcg PO WK 04/12/24 11/18/24 History mcg (50,000 unit) capsule levothyroxine 50 mcg tablet 50 mcg PO DAILY #90 tabs 07/10/24 11/18/24 Rx duloxetine 30 mg capsule,delayed 30 mg PO DAILY 10/01/24 11/18/24 History release hydrocortisone 10 mg tablet See Rx Instructions .Route 10/03/24 11/18/24 Rx (Cortef) .COMPLEX #100 tabs potassium chloride 20 mEq 20 meq PO TID #100 tabs 10/03/24 11/18/24 Rx tablet,extended release(part/cryst) baclofen 10 mg tablet 10 mg PO BID PRN Pain 11/18/24 11/18/24 History evolocumab 140 mg/mL subcutaneous 140 mg subcut Q14D 11/18/24 11/18/24 History pen injector (Perry Green) levetiracetam 250 mg tablet 0 mg PO UD 11/18/24 11/18/24 History (Keppra) metoprolol succinate 25 mg 12.5 mg PO HS 11/18/24 11/18/24 History tablet,extended release 24 hr sacubitril 49 mg-valsartan 51 mg 1 tab PO BID 11/18/24 11/18/24 History tablet (Entresto) Patient History Medical History Chronic pain Hypothyroidism Adrenal insufficiency Coronary heart disease Lumbar radiculopathy IBS (irritable bowel syndrome) Nephrolithiasis JOSEPHINE (generalized anxiety disorder) Carpal tunnel syndrome Brachial plexopathy Surgical History H/O shoulder surgery H/O arthroscopy of shoulder Status post double vessel coronary artery bypass Family History Father Heart disease Mother Breast cancer Stroke Social History Smoking Status: Light tobacco smoker Tobacco Type: Smokeless Tobacco (Dip or Chew) Cigarettes Per Day: 1 can per day; Second Hand Exposure: No; Do You Dip or Chew Tobacco: Yes; Hx Alcohol Use: No Hx Substance Use: No Preferred Language: Swedish Communication Ability: Effective Metal Extrusion Supervisor Required: No Beliefs That Will Affect Care: None Current Living Situation: Spouse and Family Feels Safe at Home: Yes Safety Concerns: Feels Safe At This Time Assistive Devices: Cane and Glasses Physical Exam Psychiatric: Orientation: alert, oriented to person and + guarded; + not oriented to place and + not oriented to time Apperance: + disheveled Eye Contact: + poor eye contact Motor Behavior: no abnormal motor movements Speech: + abnormal rate/rhythm/volume of speech (significant latency) Affect: + flat affect and + blunted affect Mood: + depressed mood Thought Process: + looseness of associations Thought Content: + preoccupation Suicidal Thoughts: denies suicidal thoughts (difficult to assess given his limited ability to engage but feels safe) and denies suicidal plan Insight: + poor insight Judgment: + limited judgement Vital Signs (Past 24 Hours): Last Vital Signs Temp 37.3 C 11/19/24 07:32 Pulse 76 11/19/24 07:32 Resp 17 11/19/24 07:32 BP 102/64 11/19/24 07:32 Pulse Ox 96 11/19/24 07:32 O2 Del Method Room Air 11/19/24 07:32 Results & Data (PSY) Medications Administered Aspirin (Aspirin 81 Mg Ectab) 81 mg PO DAILY [facility] Stop: 12/19/24 08:59 Last Admin: 11/19/24 10:00 Dose: Not Given Documented By: ADRIANE Atorvastatin Calcium (Atorvastatin 40 Mg Tab) 80 mg PO QPM [facility] Stop: 12/18/24 20:59 Last Admin: 11/18/24 21:00 Dose: 80 mg Documented By: HAYDEE Duloxetine HCl (Duloxetine Hcl 30 Mg Cap) 30 mg PO DAILY [place] Stop: 12/19/24 08:59 Last Admin: 11/19/24 10:00 Dose: Not Given Documented By: ADRIANE Duloxetine HCl (Duloxetine Hcl 60 Mg Cap) 60 mg PO DAILY [place] Stop: 12/19/24 08:59 Last Admin: 11/19/24 10:00 Dose: Not Given Documented By: ADRIANE Enoxaparin Sodium (Enoxaparin Inj 40 Mg/0.4 Ml Syr) 40 mg SQ Q24H [facility] Stop: 12/18/24 20:59 Last Admin: 11/18/24 21:01 Dose: 40 mg Documented By: HAYDEE Fludrocortisone Acetate (Fludrocortisone Acetate 0.1 Mg Tab) 0.1 mg PO DAILY [facility] Stop: 12/19/24 08:59 Last Admin: 11/19/24 10:00 Dose: Not Given Documented By: ADRIANE Hydrocortisone Sodium (Succinate 50 mg/ Syringe) 1 mls @ 4 mls/min IV Q6H [facility] Stop: 11/20/24 09:01 Last Admin: 11/19/24 09:17 Dose: 4 mls/min Documented By: Admin: 11/19/24 03:18 Dose: 4 mls/min Documented By: Admin: 11/18/24 21:59 Dose: 4 mls/min Documented By: Admin: 11/18/24 15:29 Dose: 4 mls/min Documented By: JAYLYN Magnesium Sulfate/Dextrose (Magnesium Sulfate / D5w) 1 gm in 100 mls @ 50 mls/hr IV Q2H [facility] Stop: 11/19/24 14:44 Last Admin: 11/19/24 09:17 Dose: 50 mls/hr Documented By: ADRIANE Levothyroxine Sodium (Levothyroxine Sodium 50 Mcg Tablet) 50 mcg PO DAILYBB [facility] Stop: 12/19/24 06:29 Last Admin: 11/19/24 05:22 Dose: 50 mcg Documented By: HAYDEE Pantoprazole Sodium (Pantoprazole 40 Mg Tab) 40 mg PO DAILY [facility] Stop: 12/19/24 08:59 Last Admin: 11/19/24 10:00 Dose: Not Given Documented By: ADRIANE Potassium Chloride (Potassium Chloride Crtab 20 Meq Tabcr) 20 meq PO TID [facility] Stop: 12/18/24 14:59 Last Admin: 11/19/24 09:16 Dose: 20 meq Documented By: Admin: 11/18/24 21:00 Dose: 20 meq Documented By: Admin: 11/18/24 15:29 Dose: 20 meq Documented By: JAYLYN Coding Level of Care Code 44495 IN/OBS CONSULT LVL 4,60M Diagnoses Depression F32.A Severe dehydration E86.0 Adrenal crisis E27.2 Generalized weakness R53.1
[2024-11-19] MEDS: TAMSULOSIN HCL 0.4 MG CAP PO SCH (10:37)
--- NOTE | 2024-11-19 18:01 | Hospitalist Progress Note ---
Date of Service November 19, 2024 Assessment & Plan (1) Adrenal crisis: Plan: Patient presented on 11/18 out of concern for adrenal crisis New onset ARTHUR, generalized fatigue, and mottled skin appearance - improved / BP improved as well Suspect secondary to medication noncompliance due to depression BP 64/38 on arrival IVF resuscitation with NSS 3000 mL IV BP is 104/59 at time of admission Patient's reports that he took hydrocortisone 80 mg p.o. x 1 prior to coming into the ED Hydrocortisone 50 mg IV q6h Continue fludrocortisone (2) Hypotension: Plan: Hold all antihypertensive medications for now Continue steroid support (3) Severe dehydration: Plan: poor oral intake Cont IVF nutrition consult (4) Depression: Plan: Patient's reports progression of worsening medication noncompliance, inactivity, and staying in bed x 6 months Multifactorial:combination of CRPS, h/o [place], and being out of work Reports no new life stressors at time of admission He denies SI, HI, or thoughts of self harm Patient is amenable to receiving psychiatry while inpatient Psych consult appreciated (5) Hyponatremia: Plan: NA 132 arrival Trend BMP (6) Hypokalemia: Plan: Mild; K 3.4 on arrival Continue K supplementation 20mEq TID Trend BMP (7) Noncompliance with medication regimen: Plan: Severe depression Psych eval completed / appreciate input may need inpatient psych Not appropriate for hospice given no terminal dx and severe depression Plan Disposition: Admit to PCU telemetry DNR/DNI Heart healthy diet VTE PPx: Lovenox 40 mg SQ q24h Admission and Anticipated Discharge Date Admission Date: November 18, 2024 Subjective withdrawn, no eye contact, not answering my questions, not in distress. Spoke with spouse at bedside - severe depression, medication non compliance, not eating, asking if he should be on hospice, also asking about parenteral nutrition Physical Exam Physical Exam: Awake, comfortable appearing, will not make eye contact or answere any questions Lungs clear to auscultation b/l Heart RRR PA Soft, nt, nd, bs+ Results & Data Results & Data Vital Signs (Past 12 Hours) Vital Signs Temp Pulse Pulse Resp BP Pulse Ox Pulse Ox 11/19/24 17:43 70 11/19/24 14:41 95 11/19/24 12:00 37.2 C 76 18 102/65 95 11/19/24 11:12 83 11/19/24 07:32 37.3 C 76 17 102/64 96 O2 Del Method O2 Del Method 11/19/24 17:43 11/19/24 14:41 Room Air 11/19/24 12:00 Room Air 11/19/24 11:12 11/19/24 07:32 Room Air Laboratory Results reviewed PG Care Time/CCT Total # of Minutes Spent Total Time Spent with Patient: Total time spent is greater than 50% in coordination of care (as documented) at patient's floor/unit and/or counseling patient: Coding Level of Care Code 88048 SUB INP/OBS CARE 2/35MIN Diagnoses Adrenal crisis E27.2 Hypotension due to hypovolemia E86.1 Hypotension type: hypotension due to hypovolemia Severe dehydration E86.0 Depression F32.A Hyponatremia E87.1 Hypokalemia E87.6 Noncompliance with medication regimen Z91.148 (2) Hypotension Hypotension type: hypotension due to hypovolemia Qualified Code(s): E86.1 - Hypovolemia
[2024-11-19] MEDS: SODIUM CHLORIDE 0.9% 1,000 ML IV SCH (19:13)
[2024-11-20 06:39] LABS: Hematocrit (blood only) 36.2 % (42.0-52.0); Hemoglobin 12.8 g/dl (14.0-18.0); Mean Corpuscular Hemoglobin 33.6 pg (25.0-34.0); Mean Corpuscular Hgb Conc 35.4 g/dL (32.0-36.0); Mean Platelet Volume 10.1 fL (9.4-12.4); Platelet Count 176 K/uL (130-400); RDW Coefficient of Variation 16.3 % (11.5-14.5); RDW Standard Deviation 57.1 fL (36.4-46.3); Red Blood Count 3.81 M/uL (4.70-6.10); White Blood Count 11.06 K/ul (4.8-10.8)
[2024-11-20 07:01] LABS: Echinocytes 1+; Eosinophils # (auto) 0.01 K/uL (0.00-0.50); Eosinophils % (auto) 0.1 %; Hypersegmented Neutrophils 1+; Immature Granulocytes # (auto) 0.06 K/uL (0.01-0.20); Immature Granulocytes % (auto) 0.5 %; Lymphocytes # (auto) 0.47 K/uL (1.20-3.40); Lymphocytes % (auto) 4.2 %; Monocytes # (auto) 0.37 K/uL (0.11-0.59); Monocytes % (auto) 3.3 %; Neutrophils # (auto) 10.15 K/uL (1.40-6.50); Neutrophils % (auto) 91.9 %
[2024-11-20 07:03] LABS: BUN Creatinine Ratio 18.5 (10-20); Calcium 8.9 mg/dl (8.6-10.3); Creatinine Clr Calc Pharmacy 102.6 ml/min; Potassium 3.5 mmol/L (3.5-5.1)
--- NOTE | 2024-11-20 19:31 | Hospitalist Progress Note ---
Date of Service November 20, 2024 Assessment & Plan (1) Adrenal crisis: Plan: Patient presented on 11/18 out of concern for adrenal crisis New onset ARTHUR, generalized fatigue, and mottled skin appearance - improved / BP improved as well Suspect secondary to medication noncompliance due to depression BP 64/38 on arrival IVF resuscitation with NSS 3000 mL IV BP is 104/59 at time of admission Patient's reports that he took hydrocortisone 80 mg p.o. x 1 prior to co olivier into the ED Hydrocortisone 50 mg IV q6h Continue fludrocortisone (2) Hypotension: Plan: Hold all antihypertensive medications for now Continue steroid support (3) Severe dehydration: Plan: poor oral intake Cont IVF nutrition consult (4) Depression: Plan: Patient's reports progression of worsening medication noncompliance, inactivity, and staying in bed x 6 months Multifactorial:combination of CRPS, h/o [place], and being out of work Reports no new life stressors at time of admission He denies SI, HI, or thoughts of self harm Patient is amenable to receiving psychiatry while inpatient Psych consult appreciated (5) Hyponatremia: Plan: NA 132 arrival Trend BMP (6) Hypokalemia: Plan: Mild; K 3.4 on arrival Continue K supplementation 20mEq TID Trend BMP (7) Noncompliance with medication regimen: Plan: Severe depression Psych eval completed / appreciate input may need inpatient psych Not appropriate for hospice given no terminal dx and severe depression Consulted palliative care per spouses request Plan Disposition: Admit to PCU telemetry DNR/DNI Heart healthy diet VTE PPx: Lovenox 40 mg SQ q24h Admission and Anticipated Discharge Date Admission Date: November 18, 2024 Subjective appears very withdrawn, depressed, no eye contact, stated ate little bit for breakfast, no pain complaints, spouse again asked about hospice Physical Exam Physical Exam: Awake, comfortable appearing, will not make eye contact or answere any questions Lungs clear to auscultation b/l Heart RRR PA Soft, nt, nd, bs+ Results & Data Results & Data Vital Signs (Past 12 Hours) Vital Signs Temp Pulse Resp BP BP Pulse Ox Pulse Ox 11/20/24 19:14 36.9 C 78 18 110/71 96 11/20/24 15:12 37.1 C 81 17 101/63 96 11/20/24 14:00 92 11/20/24 11:21 37.4 C 69 18 99/62 L 97 11/20/24 07:36 36.7 C 89 18 126/68 97 O2 Del Method O2 Del Method 11/20/24 19:14 Room Air 11/20/24 15:12 Room Air 11/20/24 14:00 Room Air 11/20/24 11:21 Room Air 11/20/24 07:36 Room Air PG Care Time/CCT Total # of Minutes Spent Total Time Spent with Patient: Total time spent is greater than 50% in coordination of care (as documented) at patient's floor/unit and/or counseling patient: Coding Level of Care Code 68987 SUB INP/OBS CARE 2/35MIN Diagnoses Adrenal crisis E27.2 Hypotension due to hypovolemia E86.1 Hypotension type: hypotension due to hypovolemia Severe dehydration E86.0 Depression F32.A Hyponatremia E87.1 Hypokalemia E87.6 Noncompliance with medication regimen Z91.148 (2) Hypotension Hypotension type: hypotension due to hypovolemia Qualified Code(s): E86.1 - Hypovolemia
[2024-11-21 06:30] LABS: Basophils # (auto) 0.01 K/uL (0.00-0.20); Basophils % (auto) 0.1 %; Eosinophils # (auto) 0.06 K/uL (0.00-0.50); Eosinophils % (auto) 0.7 %; Hematocrit (blood only) 33.6 % (42.0-52.0); Hemoglobin 11.8 g/dl (14.0-18.0); Immature Granulocytes # (auto) 0.04 K/uL (0.01-0.20); Immature Granulocytes % (auto) 0.5 %; Lymphocytes # (auto) 1.52 K/uL (1.20-3.40); Lymphocytes % (auto) 17.7 %; Mean Corpuscular Hemoglobin 33.4 pg (25.0-34.0); Mean Corpuscular Hgb Conc 35.1 g/dL (32.0-36.0); Mean Corpuscular Volume 95.2 fL (80.0-100.0); Mean Platelet Volume 10.5 fL (9.4-12.4); Monocytes # (auto) 0.42 K/uL (0.11-0.59); Monocytes % (auto) 4.9 %; Neutrophils # (auto) 6.52 K/uL (1.40-6.50); Neutrophils % (auto) 76.1 %; Platelet Count 159 K/uL (130-400); RDW Coefficient of Variation 16.2 % (11.5-14.5); RDW Standard Deviation 56.3 fL (36.4-46.3); Red Blood Count 3.53 M/uL (4.70-6.10); White Blood Count 8.57 K/ul (4.8-10.8)
[2024-11-21 06:51] LABS: Creatinine Clr Calc Pharmacy 129.9 ml/min
[2024-11-21] MEDS: HYDROCORTISONE SOD 25 MG in SYRINGE 0 ML IV ONE (09:12)
[2024-11-21] MEDS: HYDROCORTISONE SOD 25 MG in SYRINGE 0 ML IV STA (13:08)
[2024-11-21] MEDS: POTASSIUM CHLORIDE CRTAB 20 MEQ TABCR PO STA (13:08)
--- NOTE | 2024-11-21 13:13 | Hospitalist Progress Note ---
Date of Service November 21, 2024 Assessment & Plan (1) Adrenal crisis: Plan: 58-year-old male with a history of adrenal leukodystrophy who presents in adrenal crisis due to medication noncompliance in the setting of 6 months of worsening severe depression and not taking medications. 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 Is nauseous hypotensive and hypokalemic this morning suspect he is sliding back to adrenal crisis. 2 doses of IV hydrocortisone 25 mg were given however patient remained with soft blood pressures and some vomiting. Will transition back to hydrocortisone every 6 hours 50 mg for today and tomorrow. If doing well then will transition to morning evening stress dose oral steroids as early as 11/23/2024 Patient nauseous and intolerant of p.o., potassium repleted IV Hypotension Due to adrenal crisis and poor p.o. intake. Adrenal crisis as noted. Hold antihypertensives. Encourage p.o. Major depression, possibly with hypoactive psychosis Patient reported hearing voices from the wall, although of note there is a nursing intercom. His reports that he was talking to voices that were not present at home although patient adamantly denies this and appears oriented at time of visit Patient is with major depression, lack of self-care Lasix months. Takes duloxetine for pain but has never been treated for depression Given his severe hypoactive depression do feel he would benefit from a stimulant. Ritalin is likely with increased risk given his history of heart attack in the last year, modafinil is a reasonable alternative however we will stabilize from an adrenal standpoint and then start this possibly 11/22 or 11/23 Once transition back to oral hydrocortisone and stable can transition to U if needed. Dr. Villegas is following. Appreciate recommendations Goals of care Did meet with palliative care 11/21/2024 at patient's request. Patient does not meet hospice criteria at this time and this is not appropriate. Furthermore major depression will need to be adequately treated prior to being able to accurately ascertain patient's long-term goals Disposition: Admit to PCU telemetry DNR/DNI Heart healthy diet VTE PPx: Lovenox 40 mg SQ q24h (2) Hypotension: (3) Severe dehydration: (4) Depression: (5) Hyponatremia: (6) Hypokalemia: (7) Noncompliance with medication regimen: Admission and Anticipated Discharge Date Admission Date: November 18, 2024 Subjective Seen at the bedside with his present. Also seen in conjunction with palliative care and reviewed with Dr. Villegas. Patient has had chronic pain and neuropathy in his arms shoulders and legs for many years. He has had progressive symptoms and pain for several years, but became profoundly depressed after his heart attack the past year and has had no energy, is not wanting to take meds, and has been severely depressed in the last 6 months. When discussing goals of care Chioma redirects and notes that his worst pain is in the heart as there have been more talks of divorce lately. also adds that he has had chronic pain in his arms legs and shoulders which has been subadequately treated with duloxetine. He has been never treated for depression, the duloxetine has been for pain only. Some frustration was expressed and noting that pills only work for someone who wants to live and cannot take pills. Extensive discussion with family regarding multiple issues that need to be treated separately. Treating his adrenal crisis which is contributing to his poor energy and poor feeling however once this stabilizes he has underlying severe major depression which also needs to be addressed separately. Medications may be a part of this however this will have its own treatment plan. Once patient has been treated for depression then can reevaluate for additional goals however patient does not meet hospice criteria and would not be appropriate for progression to this in the setting of acute/subacute severe major depression. Did revisit patient who is hopeful that his energy and mood can be treated although was not optimistic of this either. Is agreeable to treatment for depression and following with psychiatry Does have some nausea this morning. Physical Exam Physical Exam: General: Appears withdrawn, depressed. Answers questions appropriately but slightly slow to respond. Flat speech with abnormal prosody. Soft speech volume. Is not responding to internal stimuli HEENT: Atraumatic, normocephalic. Pulm: CTAB A&P. -wheezes, -rales, -rhonchi. Symmetrical chest rise. No increased work of breathing. No respiratory distress. Cardiac: RRR, -mrg. Radial pulses intact and symmetrical. Midline healed scar is present Extremities: Upper and lower extremity mild pitting edema is Results & Data Results & Data Vital Signs (Past 12 Hours) Vital Signs Temp Pulse Pulse Resp BP BP Pulse Ox 11/21/24 11:00 36.6 C 75 20 96/63 L 97 11/21/24 07:40 36.5 C 66 16 131/61 91 11/21/24 04:00 36.6 C 60 18 124/74 99 11/21/24 02:34 79 O2 Del Method 11/21/24 11:00 Room Air 11/21/24 07:40 Room Air 11/21/24 04:00 Room Air 11/21/24 02:34 PG Care Time/CCT Total # of Minutes Spent Total Time Spent with Patient: Total time spent is greater than 50% in coordination of care (as documented) at patient's floor/unit and/or counseling patient: Coding Level of Care Code 37564 SUB INP/OBS CARE 3/50MIN Diagnoses Adrenal crisis E27.2 Hypotension due to hypovolemia E86.1 Hypotension type: hypotension due to hypovolemia Severe dehydration E86.0 Depression F32.A Hyponatremia E87.1 Hypokalemia E87.6 Noncompliance with medication regimen Z91.148 (2) Hypotension Hypotension type: hypotension due to hypovolemia Qualified Code(s): E86.1 - Hypovolemia
[2024-11-21] MEDS: POTASSIUM CHLORIDE / WTR 10 MEQ/100 ML PLCT IV SCH (13:38)
[2024-11-21] MEDS: HYDROCORTISONE SOD 50 MG in SYRINGE 0 ML IV SCH (13:38)
--- NOTE | 2024-11-21 14:52 | Gastrointestinal Consultation ---
Date of Consultation November 21, 2024 Assessment & Plan (1) Decreased oral intake: Dr. Jones & I discussed with patient, , & palliative care. Agree that it does not seem patient has a primary GI process and his depression should be aggressively treated. He is reportedly going to inpatient psych when adrenal crisis is addressed. Supervising Physician Co-Signing Physician Notes Primary problem appears to be psychiatric in nature. Decreased oral intake this may also precipitate adrenal crisis. His abdominal pain nausea and diarrhea all could be related to adrenal crisis. At this point I think we should focus on management by the primary service of the adrenal insufficiency and then psych evaluation. I do not plan any endoscopic evaluation at this time History of Present Illness Reason for Consultation: "severe depression, not eating or taking meds" Attending Physician: Rik Philip MD History of Present Illness Chioma is a 58-year-old male with PMH of adrenal myelo neuropathy, adrenoleukodystrophy, CRPS, depression, hypogonadism, and mixed hyperlipidemia. He presented to the ED on 11/18 for fatigue, SOB, severe dehydration and concerns for Tyrone's crisis. His notes he has had significant weight loss over the past 6 months. notes he had a negative Celiac panel & CT abdomen/pelvis was unremarkable. notes that she cannot get him to take his medications due to significant apathy and depression. No vomiting, abdominal pain, GI bleeding. He is seeing palliative care and psychiatry as well as his hospitalist team. Allergies Allergy/AdvReac Type Severity Reaction Status Date / Time No Known Drug Allergies Allergy Verified 11/18/24 08:02 Home Medications Medication Instructions Recorded Confirmed Type aspirin 81 mg tablet,delayed 81 mg PO DAILY 12/22/22 11/18/24 History release (Adult Aspirin Regimen) atorvastatin 80 mg tablet 80 mg PO QPM 12/22/22 11/18/24 History cyanocobalamin (vitamin B-12) 1,000 mcg IM MONTHLY 12/22/22 11/18/24 History 1,000 mcg/mL injection solution fludrocortisone 0.1 mg tablet 0.1 mg PO DAILY 12/22/22 11/18/24 History pantoprazole 40 mg tablet,delayed 40 mg PO DAILY 12/22/22 11/18/24 History release (Protonix) cholecalciferol (vitamin D3) 25 25 mcg PO HS 04/12/24 11/18/24 History mcg (1,000 unit) capsule (Vitamin D3) dapagliflozin propanediol 10 mg 10 mg PO DAILY 04/12/24 11/18/24 History tablet (Farxiga) duloxetine 60 mg capsule,delayed 60 mg PO DAILY 04/12/24 11/18/24 History release ergocalciferol (vitamin D2) 1,250 1,250 mcg PO WK 04/12/24 11/18/24 History mcg (50,000 unit) capsule levothyroxine 50 mcg tablet 50 mcg PO DAILY #90 tabs 07/10/24 11/18/24 Rx duloxetine 30 mg capsule,delayed 30 mg PO DAILY 10/01/24 11/18/24 History release hydrocortisone 10 mg tablet See Rx Instructions .Route 10/03/24 11/18/24 Rx (Cortef) .COMPLEX #100 tabs potassium chloride 20 mEq 20 meq PO TID #100 tabs 10/03/24 11/18/24 Rx tablet,extended release(part/cryst) baclofen 10 mg tablet 10 mg PO BID PRN Pain 11/18/24 11/18/24 History evolocumab 140 mg/mL subcutaneous 140 mg subcut Q14D 11/18/24 11/18/24 History pen injector (Repshona Dewittick) levetiracetam 250 mg tablet 0 mg PO UD 11/18/24 11/18/24 History (Keppra) metoprolol succinate 25 mg 12.5 mg PO HS 11/18/24 11/18/24 History tablet,extended release 24 hr sacubitril 49 mg-valsartan 51 mg 1 tab PO BID 11/18/24 11/18/24 History tablet (Entresto) Patient History Medical History Chronic pain Hypothyroidism Adrenal insufficiency Coronary heart disease Lumbar radiculopathy IBS (irritable bowel syndrome) Nephrolithiasis JOSEPHINE (generalized anxiety disorder) Carpal tunnel syndrome Brachial plexopathy Surgical History H/O shoulder surgery H/O arthroscopy of shoulder Status post double vessel coronary artery bypass Family History Father Heart disease Mother Breast cancer Stroke Social History Smoking Status: Light tobacco smoker Tobacco Type: Smokeless Tobacco (Dip or Chew) Cigarettes Per Day: 1 can per day; Second Hand Exposure: No; Do You Dip or Chew Tobacco: Yes; Hx Alcohol Use: No Hx Substance Use: No Preferred Language: Azeri Communication Ability: Effective Mr Teacher Required: No Beliefs That Will Affect Care: None Current Living Situation: Spouse and Family Feels Safe at Home: Yes Safety Concerns: Feels Safe At This Time Assistive Devices: Walker Review of Systems Gastrointestinal: no abdominal pain, no heartburn, no nausea and no vomiting Physical Exam Constitutional: + not well nourished and no acute distre ss Respiratory: normal respiratory effort Psychiatric: Orientation: alert Results & Data Vital Signs (Past 12 Hours) Vital Signs Temp Pulse Resp BP BP Pulse Ox O2 Del Method 11/21/24 11:00 36.6 C 75 20 96/63 L 97 Room Air 11/21/24 07:40 36.5 C 66 16 131/61 91 Room Air 11/21/24 04:00 36.6 C 60 18 124/74 99 Room Air PG Care Time/CCT Total # of Minutes Spent Total Time Spent with Patient: Total time spent is greater than 50% in coordination of care (as documented) at patient's floor/unit and/or counseling patient: Coding Level of Care Code 48059 OFFICE CONSULT LVL 40M Diagnoses Decreased oral intake R63.8
--- NOTE | 2024-11-21 15:50 | Psychiatric Progress Note ---
Date of Service November 21, 2024 Impression / Recommendations Impression Diagnostically consistent with unspecified depression-presentation consistent with likely hypoactive delirium given confusion/lack of orientation and/or severe major depression given significant latency of speech with possible psychotic features given thought disorganization and possible hallucinations/internal preoccupation. However, further collateral from his will be helpful to further elucidate recent symptoms. No evidence for catatonia at this time but should remain on differential given report of recent poor intake and latent speech. A: Significant lessening of confusion, ongoing concern for depression with psychotic features and suspect much of his recent medication non-adherence was related to reported desire to . He feels safe in the hospital and is able to alert nursing if he were to feel unsafe. Plan for likely inpatient psychiatric admission once medically stable. Individuals with MDD with psychotic features are at elevated risk of self-harm even without endorsed active SI so at this time given his significant latency, thought blocking, auditory hallucinations and recent non-adherence to his chronic/life threatening medical conditions I feel he would meet 302 criteria for high risk of self-harm. For now he is agreeable to voluntary psych tx once medically stable. Overall, I spent a total of 50 minutes with this case including review of chart records, review of labwork, review of EKG QTc, direct evaluation of the patient at bedside, counseling the patient, discussion of the patient with the hospitalist provider, discussion with the psychiatric liason during clinical rounds and documentation in the electronic health record. (1) Depression: (2) Severe dehydration: (3) Adrenal crisis: (4) Generalized weakness: (5) Depression, major, recurrent, severe with psychosis: Plan -He may not leave AMA given depression and felt to meet 302 criteria. If he attempts to leave security and psych liason should be called. -No 1:1 required at this time as he feels safe and feels able to ask for support but if this changes then 1-on-1 and suicide precautions should be initiated -Continue with duloxetine as ordered -Could consider trial of stimulant due to low energy/lack of motivation though with caution this could worsen psychotic features. Alternatively trial of abilify may be beneficial once he becomes medically stable. Interval History Identifying Information 58 yo man with a history of adrenal myelo neuropathy, adrenoleukodystrophy, CRPS, depression, hypogonadism, and mixed hyperlipidemia admitted medically with concern for Grayson's crisis and dehydration. Psychiatry consulted for concern for depression contributing to medication non-adherence. Chief Complaint "Yeah I would be". Subjective Subjective Patient was seen & assessed and interval progress reviewed. Interval events: -Collateral information from his notable for significant hx of depression, dependent traits, reported that he has been "waiting to " for several years -Palliative care consult as requested consideration for hospice, he was deemed to not be a candidate for this, no current life ending illness -Later in the afternoon his stated her desire to bring patient home and to manage his ongoing medical care at home This afternoon I met with Chioma along with Dr. Philip. Chioma remains very latent in his responses, often closes his eyes, will not respond to certain questions (i.e. avoiding answering about suicidality and using non-adherence of his medical conditions as a means of brining about ) and endorsed auditory hallucinations. Confusion has significantly lessened today. He endorses very low self-esteem, chronic pain and significant depression. He would like to get inpatient psychiatric treatment for his depression once he is medically stable. He is hopeful this could help him develop better coping skills. Physical Exam Psychiatric Orientation: alert, oriented to person and oriented to place Apperance: + disheveled Eye Contact: + poor eye contact Motor Behavior: no abnormal motor movements Speech: + abnormal rate/rhythm/volume of speech (significant latency) Affect: + flat affect and + blunted affect Mood: + depressed mood Thought Process: + circumstantial thought process Thought Content: + preoccupation, + worthlessness, + loneliness and + self deprecation Suicidal Thoughts: denies suicidal plan; + reports suicidal thoughts (he won't directly discuss ) Hallucinations: + auditory hallucinations Insight: + limited insight Judgment: + limited judgement Vital Signs (Past 24 Hours) Last Vital Signs Temp 36.6 C 11/21/24 15:20 Pulse 69 11/21/24 15:20 Resp 16 11/21/24 15:20 BP 101/62 11/21/24 15:20 Pulse Ox 96 11/21/24 15:20 O2 Del Method Room Air 11/21/24 15:20 Results & Data ([facility]) Laboratory Results Laboratory Results - last 24 hr 11/21/24 05:31 WBC 8.57 RBC 3.53 L Hgb 11.8 L Hct 33.6 L MCV 95.2 MCH 33.4 MCHC 35.1 RDW Std Deviation 56.3 H RDW Coeff of Kale 16.2 H Plt Count 159 MPV 10.5 Immature Gran % (Auto) 0.5 Neut % (Auto) 76.1 Lymph % (Auto) 17.7 Bee % (Auto) 4.9 Eos % (Auto) 0.7 Baso % (Auto) 0.1 Neut # (Auto) 6.52 H Lymph # (Auto) 1.52 Bee # (Auto) 0.42 Eos # (Auto) 0.06 Baso # (Auto) 0.01 Immature Gran # (Auto) 0.04 Sodium 140 Potassium 3.0 L Chloride 108 H Carbon Dioxide 22 Anion Gap 10 BUN 16 Creatinine 0.64 Est Cr Clr Drug Dosing 129.9 eGFR 109.73 BUN/Creatinine Ratio 25.0 H Glucose 92 Calcium 9.0 Current Inpatient Medications Current Inpatient Medications: Current Inpatient Medications Acetaminophen (Acetaminophen 325 Mg Tab) 650 mg PO Q4H PRN PRN Reason: Pain or Fever Stop: 12/18/24 14:40 Aspirin (Aspirin 81 Mg Ectab) 81 mg PO DAILY [facility] Stop: 12/19/24 08:59 Last Admin: 11/21/24 09:12 Dose: 81 mg Atorvastatin Calcium (Atorvastatin 40 Mg Tab) 80 mg PO QPM [facility] Stop: 12/18/24 20:59 Last Admin: 11/20/24 20:42 Dose: Not Given Baclofen (Baclofen 10 Mg Tab) 10 mg PO BID PRN PRN Reason: Pain Stop: 12/18/24 14:40 Duloxetine HCl (Duloxetine Hcl 30 Mg Cap) 30 mg PO DAILY [facility] Stop: 12/19/24 08:59 Last Admin: 11/21/24 09:12 Dose: 30 mg Enoxaparin Sodium (Enoxaparin Inj 40 Mg/0.4 Ml Syr) 40 mg SQ Q24H [facility] Stop: 12/18/24 20:59 Last Admin: 11/20/24 20:42 Dose: Not Given Fludrocortisone Acetate (Fludrocortisone Acetate 0.1 Mg Tab) 0.1 mg PO DAILY [facility] Stop: 12/19/24 08:59 Last Admin: 11/21/24 09:12 Dose: 0.1 mg Hydrocortisone Sodium (Succinate 50 mg/ Syringe) 1 mls @ 4 mls/min IV Q6H [facility] Stop: 12/21/24 12:59 Last Admin: 11/21/24 13:38 Dose: 4 mls/min Potassium Chloride (K Eliu / Wtr) 10 meq in 100 mls @ 100 mls/hr IV Q1H [facility] Stop: 11/21/24 17:14 Last Admin: 11/21/24 14:43 Dose: 100 mls/hr Levothyroxine Sodium (Levothyroxine Sodium 50 Mcg Tablet) 50 mcg PO DAILYBB [facility] Stop: 12/19/24 06:29 Last Admin: 11/21/24 06:39 Dose: Not Given Pantoprazole Sodium (Pantoprazole 40 Mg Tab) 40 mg PO DAILY [facility] Stop: 12/19/24 08:59 Last Admin: 11/21/24 09:13 Dose: 40 mg Potassium Chloride (Potassium Chloride Crtab 20 Meq Tabcr) 20 meq PO TID [facility] Stop: 12/18/24 14:59 Last Admin: 11/21/24 13:39 Dose: Not Given Tamsulosin HCl (Tamsulosin Hcl 0.4 Mg Cap) 0.4 mg PO QAM [facility] Stop: 12/19/24 09:59 Last Admin: 11/21/24 09:13 Dose: 0.4 mg
[2024-11-21] MEDS ORDERED: HYDROCORTISONE SOD 10 MG in SYRINGE 0 ML IV SCH (21:00)
[2024-11-21] MEDS ORDERED: HYDROCORTISONE 10 MG TAB PO SCH (21:00)
[2024-11-22 06:46] LABS: BUN Creatinine Ratio 25.9 (10-20); Calcium 8.6 mg/dl (8.6-10.3); Creatinine Clr Calc Pharmacy 143.3 ml/min; Potassium 3.5 mmol/L (3.5-5.1)
[2024-11-22] MEDS ORDERED: HYDROCORTISONE 10 MG TAB PO SCH (09:00)
[2024-11-22] MEDS: D5W AND LACTATED RINGERS 500 ML IV SCH (09:00)
[2024-11-22] MEDS: HYDROCORTISONE SOD 50 MG in SYRINGE 0 ML IV SCH (09:02)
--- NOTE | 2024-11-22 11:23 | Psychiatric Progress Note ---
Date of Service November 22, 2024 Impression / Recommendations Impression Diagnostically consistent with unspecified depression-presentation consistent with likely hypoactive delirium given confusion/lack of orientation and/or severe major depression given significant latency of speech with possible psychotic features given thought disorganization and possible hallucinations/internal preoccupation. However, further collateral from his will be helpful to further elucidate recent symptoms. No evidence for catatonia at this time but should remain on differential given report of recent poor intake and latent speech. A: Today still with periods of loosening of associations, confusion, thought blocking and latency but also able to participate in more discussions overall. 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 He is tolerating duloxetine and dose can slowly be re-titrated. For now recommend starting mirtazapine to help with GI symptoms, depression and insomnia. Given recent poor intake, depression, lack of motivation, anhedonia he remains at elevated risk of self-harm and felt to meet 302 criteria if he demanded to leave. Overall, I spent a total of 60 minutes with this case including review of chart records, review of labwork, review of EKG QTc, direct evaluation of the patient at bedside, counseling the patient, discussion of the patient with the hospitalist provider, discussion with the psychiatric liason during clinical rounds, review of collateral information from family, participation in family meeting and documentation in the electronic health record. (1) Delirium due to another medical condition: (2) Depression: (3) Adrenomyeloneuropathy: (4) Adrenal crisis: (5) Generalized weakness: (6) Adreno-leukodystrophy: Plan -He may not leave AMA given depression and would meet 302 criteria. If he attempts to leave security and psych liason should be called. -No 1:1 required at this time as he feels safe and feels able to ask for support but if this changes then 1-on-1 and suicide precautions should be initiated -Continue with duloxetine as ordered, can increase to 60mg daily in 2-3 days -Start mirtazapine 15mg HS -Could consider trial of stimulant due to low energy/lack of motivation though with caution this could worsen psychotic features. Alternatively trial of abilify may be beneficial once he becomes medically stable. Will wait until delirium improves Interval History Identifying Information 58 yo man with a history of adrenal myelo neuropathy, adrenoleukodystrophy, CRPS, depression, hypogonadism, and mixed hyperlipidemia admitted medically with concern for Tyrone's crisis and dehydration. Psychiatry consulted for concern for depression contributing to medication non-adherence. Chief Complaint "Who is glaring at me". Subjective Subjective Patient was seen & assessed and interval progress reviewed. Met with Chioma alongside hospitalist MD and he reported some depression and demonstrated some confusion, periods of thought blocking and endorsed VH of seeing someone sitting in the chair next to his bed. Later met with Chioma, his Olamide, his son and hospitalist MD to discuss laila tment plan. Olamide discussed main target symptoms of pain, GI issues, depression and deconditioning. She noted he often has symptoms of hallucinations during adrenal crisis which typically resolves within 1 week. During meeting Chioma noted a visual hallucination vs paranoia of sense someone was glaring. lOamide feels the duloxetine may help with his nerve pain a little, as does gabapentin, but that only opioids have ever really helped him. In the past when he was on opioids he was more active and more adherent with his medications. Over the last year his pain significantly worsened and over the last six months he became a lot more deconditioned. She described how part of his AMN comes with worsening cognitive functioning and can impact his mood. They follow with outpatient neurology for this. They are exploring outpatient pain management options that may offer opioid medications. Chioma notes he wants to go home due to not liking being in the hospital but is agreeable to remaining inpatient for now. Collateral from patient's daughter notable for no significant safety concerns related to his depression. She suspects some of his speech changes may be due to his worsening ALD as this seemed to worsen in the last 2 months. Physical Exam Psychiatric Orientation: alert, oriented to person and oriented to place Apperance: appropriately dressed Eye Contact: + fair eye contact Motor Behavior: no abnormal motor movements Speech: + abnormal rate/rhythm/volume of speech (latency at times) Affect: + flat affect Mood: + depressed mood Thought Process: + circumstantial thought process and + looseness of associations Thought Content: + paranoid Suicidal Thoughts: denies suicidal plan; + reports suicidal thoughts (hard to assess for passive SI ) Hallucinations: + auditory hallucinations and + visual hallucinations Insight: + limited insight Judgment: + limited judgement Vital Signs (Past 24 Hours) Last Vital Signs Temp 36.6 C 11/22/24 07:10 Pulse 74 11/22/24 07:10 Resp 18 11/22/24 07:10 BP 124/79 11/22/24 07:10 Pulse Ox 99 11/22/24 07:10 O2 Del Method Room Air 11/22/24 07:10 Results & Data ([facility]) Laboratory Results Laboratory Results - last 24 hr 11/22/24 05:39 Sodium 135 L Potassium 3.5 Chloride 102 Carbon Dioxide 20 L Anion Gap 13 H BUN 15 Creatinine 0.58 L Est Cr Clr Drug Dosing 143.3 eGFR 113.04 BUN/Creatinine Ratio 25.9 H Glucose 93 Calcium 8.6 Current Inpatient Medications Current Inpatient Medications: Current Inpatient Medications Acetaminophen (Acetaminophen 325 Mg Tab) 650 mg PO Q4H PRN PRN Reason: Pain or Fever Stop: 12/18/24 14:40 Aspirin (Aspirin 81 Mg Ectab) 81 mg PO DAILY [facility] Stop: 12/19/24 08:59 Last Admin: 11/22/24 09:07 Dose: 81 mg Atorvastatin Calcium (Atorvastatin 40 Mg Tab) 80 mg PO QPM [facility] Stop: 12/18/24 20:59 Last Admin: 11/21/24 20:35 Dose: 80 mg Baclofen (Baclofen 10 Mg Tab) 10 mg PO BID PRN PRN Reason: Pain Stop: 12/18/24 14:40 Duloxetine HCl (Duloxetine Hcl 30 Mg Cap) 30 mg PO DAILY [facility] Stop: 12/19/24 08:59 Last Admin: 11/22/24 09:08 Dose: 30 mg Enoxaparin Sodium (Enoxaparin Inj 40 Mg/0.4 Ml Syr) 40 mg SQ Q24H [facility] Stop: 12/18/24 20:59 Last Admin: 11/21/24 20:35 Dose: 40 mg Fludrocortisone Acetate (Fludrocortisone Acetate 0.1 Mg Tab) 0.1 mg PO DAILY [facility] Stop: 12/19/24 08:59 Last Admin: 11/22/24 09:06 Dose: 0.1 mg Hydrocortisone (Hydrocortisone 10 Mg Tab) 40 mg PO QAM [facility] Stop: 12/23/24 08:59 Hydrocortisone (Hydrocortisone 10 Mg Tab) 20 mg PO 1600 [facility] Stop: 12/23/24 15:59 Hydrocortisone Sodium (Succinate 50 mg/ Syringe) 1 mls @ 4 mls/min IV Q6H [facility] Stop: 11/22/24 21:01 Last Admin: 11/22/24 09:02 Dose: 4 mls/min Dextrose/Lactated Ringer's (D5w And Lactated Ringers) 500 mls @ 125 mls/hr IV .Q4H [facility] Stop: 12/22/24 08:14 Last Admin: 11/22/24 09:00 Dose: 125 mls/hr Levothyroxine Sodium (Levothyroxine Sodium 50 Mcg Tablet) 50 mcg PO DAILYBB [facility] Stop: 12/19/24 06:29 Last Admin: 11/22/24 09:07 Dose: 50 mcg Pantoprazole Sodium (Pantoprazole 40 Mg Tab) 40 mg PO DAILY [facility] Stop: 12/19/24 08:59 Last Admin: 11/22/24 09:06 Dose: 40 mg Potassium Chloride (Potassium Chloride Crtab 20 Meq Tabcr) 20 meq PO TID [facility] Stop: 12/18/24 14:59 Last Admin: 11/22/24 09:02 Dose: Not Given Tamsulosin HCl (Tamsulosin Hcl 0.4 Mg Cap) 0.4 mg PO QAM [facility] Stop: 12/19/24 09:59 Last Admin: 11/22/24 09:05 Dose: 0.4 mg
--- NOTE | 2024-11-22 12:02 | Palliative Care Consultation ---
Date of Consultation November 21, 2024 Assessment & Plan (1) Generalized weakness: (2) Noncompliance with medication regimen: (3) Encounter for hospice care discussion: Face to Face ACP X30 MIN w/, pt, care mgt, Dr. Vaca and myself; I provided education about the hospice benefit: an interdisciplinary program offered by nurses, nurses aides, social workers, chaplains and a senior medical transcriptionist for patients with a terminal condition and a life expectancy of less than 6 months. This is covered by Medicare at 100%/no out of pocket expense to patient and all meds/supplies needed by patient for the reason they are on hospice are paid for/covered by hospice. The goal is assure quality of life of the patient in their home setting (home, fpc, inpatient hospice setting) by providing symptoms management, psychosocial and spiritual support. However, they cannot offer 24 hours care and if the family is unable to provide that care, they will have to consider personal care with out of pocket cost vs. fpc placement. We discussed the goals of hospice as a patient service and the goals of care; we discussed EOL trajectories and transitions chandana the emotional impact of realizing mortality as a concrete reality from prior abstract considerations. Pt was reassured that no matter where they are along this trajectory, they are not alone - their medical team will remain by their side through their journey. Discussed the pros/cons of accepting help when especially weakened and distressed by pain-which would also help provide relief/decrease caregiver burden/strain. I advised pt and I do not believe he is hospice eligible. There is no clear hospice dx and he has a very severe depression which I and the medical teams agree is an issue requiring treatment bc current decisions may be clouded by the depression and therefore not representing pt true wishes. His behavior and choices so far this admission indicate a desire to be treated and improve. He is engaging with staff, PT etc. I do not feel he is a hospice candidate. was unhappy with this information and expressed her dissatisfaction. We reviewed the need for psych tx following medical admission. more discussion anticipated with psych. (4) Advanced care planning/counseling discussion: see above hospice discussion (5) Palliative care by specialist: Introduced Palliative Medicine and explained our role in patient's care. Patient and/or family were receptive to palliative services for goals of care discussions. Reviewed we are different from hospice, a home health nurse visiting service. Plan As above. Thank you for allowing us to participate in the ongoing care of this patient. Please page with any additional concerns. Kd Du DNP Director, Palliative Medicine History of Present Illness Reason for Consultation: ricardo chou, jennifer Attending Physician: Rik Philip MD History of Present Illness Chioma is a 58-year-old male with PMH of adrenal myelo neuropathy, adrenoleukodystrophy, CRPS, depression, hypogonadism, and mixed hyperlipidemia. He presented to the ED on 11/18 for fatigue, SOB, severe dehydration and concerns for [place]'s crisis. He has not been taking his meds for several months per . His notes he has had significant weight loss over the past 6 months. notes he had a negative Celiac panel & CT abdomen/pelvis was unremarkable. notes that she cannot get him to take his medications due to significant apathy and depression. No vomiting, abdominal pain, GI bleeding. 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 hospice and stated she wants him on hospice/comfort care She states he does not take his meds: "I give them to him everyday but just find piles of medications all through the house. He doesn't take them and then we end up here. You guys think he takes his meds bc he will do anything for you guys but the second you send him home, nothing will change." Allergies Allergy/AdvReac Type Severity Reaction Status Date / Time No Known Drug Allergies Allergy Verified 11/18/24 08:02 Home Medications Medication Instructions Recorded Confirmed Type aspirin 81 mg tablet,delayed 81 mg PO DAILY 12/22/22 11/18/24 History release (Adult Aspirin Regimen) atorvastatin 80 mg tablet 80 mg PO QPM 12/22/22 11/18/24 History cyanocobalamin (vitamin B-12) 1,000 mcg IM MONTHLY 12/22/22 11/18/24 History 1,000 mcg/mL injection solution fludrocortisone 0.1 mg tablet 0.1 mg PO DAILY 12/22/22 11/18/24 History pantoprazole 40 mg tablet,delayed 40 mg PO DAILY 12/22/22 11/18/24 History release (Protonix) cholecalciferol (vitamin D3) 25 25 mcg PO HS 04/12/24 11/18/24 History mcg (1,000 unit) capsule (Vitamin D3) dapagliflozin propanediol 10 mg 10 mg PO DAILY 04/12/24 11/18/24 History tablet (Farxiga) duloxetine 60 mg capsule,delayed 60 mg PO DAILY 04/12/24 11/18/24 History release ergocalciferol (vitamin D2) 1,250 1,250 mcg PO WK 04/12/24 11/18/24 History mcg (50,000 unit) capsule levothyroxine 50 mcg tablet 50 mcg PO DAILY #90 tabs 07/10/24 11/18/24 Rx duloxetine 30 mg capsule,delayed 30 mg PO DAILY 10/01/24 11/18/24 History release hydrocortisone 10 mg tablet See Rx Instructions .Route 10/03/24 11/18/24 Rx (Cortef) .COMPLEX #100 tabs potassium chloride 20 mEq 20 meq PO TID #100 tabs 10/03/24 11/18/24 Rx tablet,extended release(part/cryst) baclofen 10 mg tablet 10 mg PO BID PRN Pain 11/18/24 11/18/24 History evolocumab 140 mg/mL subcutaneous 140 mg subcut Q14D 11/18/24 11/18/24 History pen injector (Perry Dewittick) levetiracetam 250 mg tablet 0 mg PO UD 11/18/24 11/18/24 History (Keppra) metoprolol succinate 25 mg 12.5 mg PO HS 11/18/24 11/18/24 History tablet,extended release 24 hr sacubitril 49 mg-valsartan 51 mg 1 tab PO BID 11/18/24 11/18/24 History tablet (Entresto) Patient History Medical History Chronic pain Hypothyroidism Adrenal insufficiency Coronary heart disease Lumbar radiculopathy IBS (irritable bowel syndrome) Nephrolithiasis JOSEPHINE (generalized anxiety disorder) Carpal tunnel syndrome Brachial plexopathy Surgical History H/O shoulder surgery H/O arthroscopy of shoulder Status post double vessel coronary artery bypass Family History Father Heart disease Mother Breast cancer Stroke Social History Smoking Status: Light tobacco smoker Tobacco Type: Smokeless Tobacco (Dip or Chew) Cigarettes Per Day: 1 can per day; Second Hand Exposure: No; Do You Dip or Chew Tobacco: Yes; Hx Alcohol Use: No Hx Substance Use: No Preferred Language: Cymraes Communication Ability: Effective 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 Beliefs That Will Affect Care: None Current Living Situation: Spouse and Family Feels Safe at Home: Yes Safety Concerns: Feels Safe At This Time Assistive Devices: Walker Review of Systems Review of Systems: All systems reviewed & are unremarkable except as noted in Subjective Physical Exam Constitutional: + ill appearing, + behavioral limitation s, + frail appearing, + disheveled, cooperative and + underweight; no acute distress Eyes: PERRL, conjunctivae normal, anicteric sclerae ENMT: Mouth: + muffled voice and + poor dentition Neck: normal visual inspection and trachea midline Respiratory: normal respiratory effort Cardiovascular: Rate/Rhythm: regular rate and regular rhythm Skin: + turgor decreased and + pallor Psychiatric: Orientation: alert Results & Data Vital Signs (Past 12 Hours) Vital Signs Temp Pulse Resp BP Pulse Ox O2 Del Method 11/22/24 07:10 36.6 C 74 18 124/79 99 Room Air 11/22/24 02:47 36.5 C 73 18 119/76 97 Room Air Laboratory Results 11/22/24 11/21/24 11/20/24 Range/Units 05:39 05:31 06:21 WBC 8.57 11.06 H (4.8-10.8) K/ul RBC 3.53 L 3.81 L (4.70-6.10) M/uL Hgb 11.8 L 12.8 L (14.0-18.0) g/dl POC Hgb (14.0-18.0) g/dl Hct 33.6 L 36.2 L (42.0-52.0) % POC Hct (42-52) % MCV 95.2 95.0 (80.0-100.0) fL MCH 33.4 33.6 (25.0-34.0) pg MCHC 35.1 35.4 (32.0-36.0) g/dL RDW Std Deviation 56.3 H 57.1 H (36.4-46.3) fL RDW Coeff of Kale 16.2 H 16.3 H (11.5-14.5) % Plt Count 159 176 (130-400) K/uL MPV 10.5 10.1 (9.4-12.4) fL Immature Gran % (Auto) 0.5 0.5 % Neut % (Auto) 76.1 91.9 % Lymph % (Auto) 17.7 4.2 % Valley % (Auto) 4.9 3.3 % Eos % (Auto) 0.7 0.1 % Baso % (Auto) 0.1 0.0 % Neut # (Auto) 6.52 H 10.15 H (1.40-6.50) K/uL Lymph # (Auto) 1.52 0.47 L (1.20-3.40) K/uL [place] # (Auto) 0.42 0.37 (0.11-0.59) K/uL Eos # (Auto) 0.06 0.01 (0.00-0.50) K/uL Baso # (Auto) 0.01 0.00 (0.00-0.20) K/uL Immature Gran # (Auto) 0.04 0.06 (0.01-0.20) K/uL Absolute Nucleated RBC (0.00-0.12) K/uL Nucleated RBC % (auto) % Hypersegmented Neuts 1+ Echinocytes 1+ VBG pH (7.36-7.41) VBG pCO2 (38-50) mmHg VBG pO2 mmHg VBG HCO3 mmol/L VBG O2 Saturation % VBG Base Excess mEq/L POC Sodium (135-144) mmol/L Sodium 135 L 140 138 (136-145) mmol/L POC Potassium (3.3-5.0) mmol/L Potassium 3.5 3.0 L 3.5 D POC Chloride (101-112) mmol/L Chloride 102 108 H 105 (98-107) mmol/L Carbon Dioxide 20 L 22 20 L (21-32) mmol/L POC Total CO2 (24-31) mmol/L Anion Gap 13 H 10 13 H (3-11) POC Anion Gap (16-25) mmol/L POC BUN (7-18) mg/dl BUN 15 16 15 (6-23) mg/dl Creatinine 0.58 L 0.64 0.81 (0.6-1.4) mg/dl POC Creatinine (0.6-1.3) mg/dl Est Cr Clr Drug Dosing 143.3 129.9 102.6 ml/min eGFR 113.04 109.73 102.20 BUN/Creatinine Ratio 25.9 H 25.0 H 18.5 (10-20) Glucose 93 92 126 H (70-99(Fasting)) mg/dl POC Glucose (70-99) mg/dl POC Glucose (other) (70-99) mg/dl Osmolality (280-300) mOsm/kg Lactate (0.4-2.0) mmol/L Calcium 8.6 9.0 8.9 (8.6-10.3) mg/dl POC Ioniz Calcium Heather (1.12-1.32) mmol/l Magnesium (1.7-2.4) mg/dl Total Bilirubin (0.2-1.0) mg/dl AST ALT (7-52) U/L Alkaline Phosphatase (34-104) U/L Total Protein (6.0-8.3) gm/dl Albumin (3.4-5.0) gm/dl Globulin (2.5-4.0) gm/dl Albumin/Globulin Ratio (0.9-2) TSH (0.300-4.500) uIu/ml Free T4 (0.61-1.60) ng/dl Urine Color Urine Appearance (Clear) Urine pH (4.5-7.5) Ur Specific [place] (1.000-1.030) Urine Protein (Negative) Urine Glucose (UA) (Negative) Urine Ketones (Negative) Urine Blood (Negative) Urine Nitrite (Negative) Urine Bilirubin (Negative) Urine Urobilinogen (Negative) Ur Leukocyte Esterase (Negative) Urine WBC (Auto) (0-5) /hpf Urine RBC (Auto) (0-2) /hpf U Hyaline Cast (Auto) (0-2) /lpf U Epithel Cells (Auto) (0-2) /hpf Urine Bacteria (Auto) (None Seen) Urine Osmolality (500-800) mOsm/kg Ur Random Sodium mmol/L Salicylates (3.0-30) mg/dl Urine Opiates Screen (Neg) Ur Methadone, Qual (Neg) Urine Fentanyl Screen (Neg) Acetaminophen (10-30) ug/ml Urine Barbiturates (Neg) Ur Phencyclidine (PCP) (Neg) U Amphetamin/Meth Scrn (Neg) MDMA (Ecstasy) Screen (Neg) U Benzodiazepines Scrn (Neg) Ur Cocaine Metabolite (Neg) U Marijuana (THC) Screen (Neg) Ethyl Alcohol mg/dL (<10.0) mg/dl Adenovirus (PCR) (NotDetected) B. pertussis DNA (PCR) (NotDetected) B.parapertussis DNA PCR (NotDetected) C. pneumoniae DNA (PCR) (NotDetected) Coronavirus OC43 (PCR) (NotDetected) Coronavirus HKU1 (PCR) (NotDetected) Coronavirus 229E (PCR) (NotDetected) SARS-CoV-2 (PCR) (NotDetected) Coronavirus NL63 (PCR) (NotDetected) Human Metapneumovir PCR (NotDetected) Influenza Type A (PCR) (NotDetected) Influenza Type B (PCR) (NotDetected) M. pneumoniae (PCR) (NotDetected) Parainfluenza 1 (PCR) (NotDetected) Parainfluenza 2 (PCR) (NotDetected) Parainfluenza 3 (PCR) (NotDetected) Parainfluenza 4 (PCR) (NotDetected) RSV (PCR) (NotDetected) Entero/Rhino (PCR) (NotDetected) 11/19/24 11/18/24 11/18/24 Range/Units 07:25 15:31 14:20 WBC 9.39 (4.8-10.8) K/ul RBC 4.33 L (4.70-6.10) M/uL Hgb 14.2 (14.0-18.0) g/dl POC Hgb (14.0-18.0) g/dl Hct 40.9 L (42.0-52.0) % POC Hct (42-52) % MCV 94.5 (80.0-100.0) fL MCH 32.8 (25.0-34.0) pg MCHC 34.7 (32.0-36.0) g/dL RDW Std Deviation 55.8 H (36.4-46.3) fL RDW Coeff of Kale 16.3 H (11.5-14.5) % Plt Count 244 (130-400) K/uL MPV 10.4 (9.4-12.4) fL Immature Gran % (Auto) 0.6 % Neut % (Auto) 86.5 % Lymph % (Auto) 8.1 % Valley % (Auto) 4.7 % Eos % (Auto) 0.0 % Baso % (Auto) 0.1 % Neut # (Auto) 8.12 H (1.40-6.50) K/uL Lymph # (Auto) 0.76 L (1.20-3.40) K/uL [place] # (Auto) 0.44 (0.11-0.59) K/uL Eos # (Auto) 0.00 (0.00-0.50) K/uL Baso # (Auto) 0.01 (0.00-0.20) K/uL Immature Gran # (Auto) 0.06 (0.01-0.20) K/uL Absolute Nucleated RBC (0.00-0.12) K/uL Nucleated RBC % (auto) % Hypersegmented Neuts Echinocytes VBG pH (7.36-7.41) VBG pCO2 (38-50) mmHg VBG pO2 mmHg VBG HCO3 mmol/L VBG O2 Saturation % VBG Base Excess mEq/L POC Sodium (135-144) mmol/L Sodium 135 L 132 L (136-145) mmol/L POC Potassium (3.3-5.0) mmol/L Potassium 4.4 D 3.4 L POC Chloride (101-112) mmol/L Chloride 102 97 L (98-107) mmol/L Carbon Dioxide 15 L 18 L (21-32) mmol/L POC Total CO2 (24-31) mmol/L Anion Gap 18 H 17 H (3-11) POC Anion Gap (16-25) mmol/L POC BUN (7-18) mg/dl BUN 13 14 (6-23) mg/dl Creatinine 1.00 0.89 (0.6-1.4) mg/dl POC Creatinine (0.6-1.3) mg/dl Est Cr Clr Drug Dosing 79.5 89.3 ml/min eGFR 87.24 99.33 BUN/Creatinine Ratio 13.0 15.7 (10-20) Glucose 109 H 78 (70-99(Fasting)) mg/dl POC Glucose (70-99) mg/dl POC Glucose (other) (70-99) mg/dl Osmolality 282 (280-300) mOsm/kg Lactate (0.4-2.0) mmol/L Calcium 9.4 9.3 (8.6-10.3) mg/dl POC Ioniz Calcium Heather (1.12-1.32) mmol/l Magnesium 1.6 L (1.7-2.4) mg/dl Total Bilirubin (0.2-1.0) mg/dl AST ALT (7-52) U/L Alkaline Phosphatase (34-104) U/L Total Protein (6.0-8.3) gm/dl Albumin (3.4-5.0) gm/dl Globulin (2.5-4.0) gm/dl Albumin/Globulin Ratio (0.9-2) TSH (0.300-4.500) uIu/ml Free T4 (0.61-1.60) ng/dl Urine Color Urine Appearance (Clear) Urine pH (4.5-7.5) Ur Specific [place] (1.000-1.030) Urine Protein (Negative) Urine Glucose (UA) (Negative) Urine Ketones (Negative) Urine Blood (Negative) Urine Nitrite (Negative) Urine Bilirubin (Negative) Urine Urobilinogen (Negative) Ur Leukocyte Esterase (Negative) Urine WBC (Auto) (0-5) /hpf Urine RBC (Auto) (0-2) /hpf U Hyaline Cast (Auto) (0-2) /lpf U Epithel Cells (Auto) (0-2) /hpf Urine Bacteria (Auto) (None Seen) Urine Osmolality (500-800) mOsm/kg Ur Random Sodium mmol/L Salicylates (3.0-30) mg/dl Urine Opiates Screen (Neg) Ur Methadone, Qual (Neg) Urine Fentanyl Screen (Neg) Acetaminophen (10-30) ug/ml Urine Barbiturates (Neg) Ur Phencyclidine (PCP) (Neg) U Amphetamin/Meth Scrn (Neg) MDMA (Ecstasy) Screen (Neg) U Benzodiazepines Scrn (Neg) Ur Cocaine Metabolite (Neg) U Marijuana (THC) Screen (Neg) Ethyl Alcohol mg/dL (<10.0) mg/dl Adenovirus (PCR) (NotDetected) B. pertussis DNA (PCR) (NotDetected) B.parapertussis DNA PCR (NotDetected) C. pneumoniae DNA (PCR) (NotDetected) Coronavirus OC43 (PCR) (NotDetected) Coronavirus HKU1 (PCR) (NotDetected) Coronavirus 229E (PCR) (NotDetected) SARS-CoV-2 (PCR) (NotDetected) Coronavirus NL63 (PCR) (NotDetected) Human Metapneumovir PCR (NotDetected) Influenza Type A (PCR) (NotDetected) Influenza Type B (PCR) (NotDetected) M. pneumoniae (PCR) (NotDetected) Parainfluenza 1 (PCR) (NotDetected) Parainfluenza 2 (PCR) (NotDetected) Parainfluenza 3 (PCR) (NotDetected) Parainfluenza 4 (PCR) (NotDetected) RSV (PCR) (NotDetected) Entero/Rhino (PCR) (NotDetected) 11/18/24 11/18/24 11/18/24 Range/Units 11:37 11:27 09:25 WBC (4.8-10.8) K/ul RBC (4.70-6.10) M/uL Hgb (14.0-18.0) g/dl POC Hgb (14.0-18.0) g/dl Hct (42.0-52.0) % POC Hct (42-52) % MCV (80.0-100.0) fL MCH (25.0-34.0) pg MCHC (32.0-36.0) g/dL RDW Std Deviation (36.4-46.3) fL RDW Coeff of Kale (11.5-14.5) % Plt Count (130-400) K/uL MPV (9.4-12.4) fL Immature Gran % (Auto) % Neut % (Auto) % Lymph % (Auto) % [place] % (Auto) % Eos % (Auto) % Baso % (Auto) % Neut # (Auto) (1.40-6.50) K/uL Lymph # (Auto) (1.20-3.40) K/uL [place] # (Auto) (0.11-0.59) K/uL Eos # (Auto) (0.00-0.50) K/uL Baso # (Auto) (0.00-0.20) K/uL Immature Gran # (Auto) (0.01-0.20) K/uL Absolute Nucleated RBC (0.00-0.12) K/uL Nucleated RBC % (auto) % Hypersegmented Neuts Echinocytes VBG pH (7.36-7.41) VBG pCO2 (38-50) mmHg VBG pO2 mmHg VBG HCO3 mmol/L VBG O2 Saturation % VBG Base Excess mEq/L POC Sodium (135-144) mmol/L Sodium (136-145) mmol/L POC Potassium (3.3-5.0) mmol/L Potassium POC Chloride (101-112) mmol/L Chloride (98-107) mmol/L Carbon Dioxide (21-32) mmol/L POC Total CO2 (24-31) mmol/L Anion Gap (3-11) POC Anion Gap (16-25) mmol/L POC BUN (7-18) mg/dl BUN (6-23) mg/dl Creatinine (0.6-1.4) mg/dl POC Creatinine (0.6-1.3) mg/dl Est Cr Clr Drug Dosing ml/min eGFR BUN/Creatinine Ratio (10-20) Glucose (70-99(Fasting)) mg/dl POC Glucose (70-99) mg/dl POC Glucose (other) (70-99) mg/dl Osmolality (280-300) mOsm/kg Lactate 3.8 H* (0.4-2.0) mmol/L Calcium (8.6-10.3) mg/dl POC Ioniz Calcium Heather (1.12-1.32) mmol/l Magnesium (1.7-2.4) mg/dl Total Bilirubin (0.2-1.0) mg/dl AST ALT (7-52) U/L Alkaline Phosphatase (34-104) U/L Total Protein (6.0-8.3) gm/dl Albumin (3.4-5.0) gm/dl Globulin (2.5-4.0) gm/dl Albumin/Globulin Ratio (0.9-2) TSH (0.300-4.500) uIu/ml Free T4 (0.61-1.60) ng/dl Urine Color Yellow Urine Appearance Clear (Clear) Urine pH 6.5 (4.5-7.5) Ur Specific [place] 1.018 (1.000-1.030) Urine Protein Negative (Negative) Urine Glucose (UA) 1+ H (Negative) Urine Ketones 1+ H (Negative) Urine Blood Trace H (Negative) Urine Nitrite Negative (Negative) Urine Bilirubin Negative (Negative) Urine Urobilinogen Negative (Negative) Ur Leukocyte Esterase Negative (Negative) Urine WBC (Auto) 0-5 (0-5) /hpf Urine RBC (Auto) 3-5 H (0-2) /hpf U Hyaline Cast (Auto) 0-2 (0-2) /lpf U Epithel Cells (Auto) 0-2 (0-2) /hpf Urine Bacteria (Auto) None Seen (None Seen) Urine Osmolality 331 L (500-800) mOsm/kg Ur Random Sodium 78 mmol/L Salicylates (3.0-30) mg/dl Urine Opiates Screen Neg (Neg) Ur Methadone, Qual Neg (Neg) Urine Fentanyl Screen Neg (Neg) Acetaminophen (10-30) ug/ml Urine Barbiturates Neg (Neg) Ur Phencyclidine (PCP) Neg (Neg) U Amphetamin/Meth Scrn Neg (Neg) MDMA (Ecstasy) Screen Neg (Neg) U Benzodiazepines Scrn Neg (Neg) Ur Cocaine Metabolite Neg (Neg) U Marijuana (THC) Screen Neg (Neg) Ethyl Alcohol mg/dL (<10.0) mg/dl Adenovirus (PCR) Not Detected (NotDetected) B. pertussis DNA (PCR) Not Detected (NotDetected) B.parapertussis DNA PCR Not Detected (NotDetected) C. pneumoniae DNA (PCR) Not Detected (NotDetected) Coronavirus OC43 (PCR) Not Detected (NotDetected) Coronavirus HKU1 (PCR) Not Detected (NotDetected) Coronavirus 229E (PCR) Not Detected (NotDetected) SARS-CoV-2 (PCR) Not Detected (NotDetected) Coronavirus NL63 (PCR) Not Detected (NotDetected) Human Metapneumovir PCR Not Detected (NotDetected) Influenza Type A (PCR) Not Detected (NotDetected) Influenza Type B (PCR) Not Detected (NotDetected) M. pneumoniae (PCR) Not Detected (NotDetected) Parainfluenza 1 (PCR) Not Detected (NotDetected) Parainfluenza 2 (PCR) Not Detected (NotDetected) Parainfluenza 3 (PCR) Not Detected (NotDetected) Parainfluenza 4 (PCR) Not Detected (NotDetected) RSV (PCR) Not Detected (NotDetected) Entero/Rhino (PCR) Not Detected (NotDetected) 11/18/24 11/18/24 11/18/24 Range/Units 09:18 09:14 09:10 WBC 11.15 H (4.8-10.8) K/ul RBC 5.04 (4.70-6.10) M/uL Hgb 16.5 (14.0-18.0) g/dl POC Hgb 17.0 (14.0-18.0) g/dl Hct 46.7 (42.0-52.0) % POC Hct 50 (42-52) % MCV 92.7 (80.0-100.0) fL MCH 32.7 (25.0-34.0) pg MCHC 35.3 (32.0-36.0) g/dL RDW Std Deviation 53.4 H (36.4-46.3) fL RDW Coeff of Kale 15.9 H (11.5-14.5) % Plt Count 258 (130-400) K/uL MPV 10.2 (9.4-12.4) fL Immature Gran % (Auto) 0.6 % Neut % (Auto) 70.5 % Lymph % (Auto) 21.0 % [place] % (Auto) 6.6 % Eos % (Auto) 0.8 % Baso % (Auto) 0.5 % Neut # (Auto) 7.85 H (1.40-6.50) K/uL Lymph # (Auto) 2.34 (1.20-3.40) K/uL [place] # (Auto) 0.74 H (0.11-0.59) K/uL Eos # (Auto) 0.09 (0.00-0.50) K/uL Baso # (Auto) 0.06 (0.00-0.20) K/uL Immature Gran # (Auto) 0.07 (0.01-0.20) K/uL Absolute Nucleated RBC 0.03 (0.00-0.12) K/uL Nucleated RBC % (auto) 0.3 % Hypersegmented Neuts Echinocytes VBG pH 7.33 L (7.36-7.41) VBG pCO2 47 (38-50) mmHg VBG pO2 26 mmHg VBG HCO3 25 mmol/L VBG O2 Saturation < 60.0 % VBG Base Excess -1.5 mEq/L POC Sodium 132 L (135-144) mmol/L Sodium 132 L (136-145) mmol/L POC Potassium 3.4 (3.3-5.0) mmol/L Potassium 3.4 L TNP POC Chloride 93 L (101-112) mmol/L Chloride 91 L (98-107) mmol/L Carbon Dioxide 22 (21-32) mmol/L POC Total CO2 24 (24-31) mmol/L Anion Gap 19 H (3-11) POC Anion Gap 19.0 (16-25) mmol/L POC BUN 15 (7-18) mg/dl BUN 14 (6-23) mg/dl Creatinine 1.10 (0.6-1.4) mg/dl POC Creatinine 1.2 (0.6-1.3) mg/dl Est Cr Clr Drug Dosing 72.3 ml/min eGFR 77.81 BUN/Creatinine Ratio 12.7 (10-20) Glucose 92 (70-99(Fasting)) mg/dl POC Glucose (70-99) mg/dl POC Glucose (other) 92 (70-99) mg/dl Osmolality (280-300) mOsm/kg Lactate 4.3 H* (0.4-2.0) mmol/L Calcium 10.3 (8.6-10.3) mg/dl POC Ioniz Calcium Heather 1.11 L (1.12-1.32) mmol/l Magnesium 1.7 (1.7-2.4) mg/dl Total Bilirubin 1.7 H (0.2-1.0) mg/dl AST 31 TNP ALT 13 (7-52) U/L Alkaline Phosphatase 52 (34-104) U/L Total Protein 7.2 (6.0-8.3) gm/dl Albumin 3.6 (3.4-5.0) gm/dl Globulin 3.6 (2.5-4.0) gm/dl Albumin/Globulin Ratio 1.0 (0.9-2) TSH 4.659 H (0.300-4.500) uIu/ml Free T4 1.14 (0.61-1.60) ng/dl Urine Color Urine Appearance (Clear) Urine pH (4.5-7.5) Ur Specific [place] (1.000-1.030) Urine Protein (Negative) Urine Glucose (UA) (Negative) Urine Ketones (Negative) Urine Blood (Negative) Urine Nitrite (Negative) Urine Bilirubin (Negative) Urine Urobilinogen (Negative) Ur Leukocyte Esterase (Negative) Urine WBC (Auto) (0-5) /hpf Urine RBC (Auto) (0-2) /hpf U Hyaline Cast (Auto) (0-2) /lpf U Epithel Cells (Auto) (0-2) /hpf Urine Bacteria (Auto) (None Seen) Urine Osmolality (500-800) mOsm/kg Ur Random Sodium mmol/L Salicylates < 3.0 L (3.0-30) mg/dl Urine Opiates Screen (Neg) Ur Methadone, Qual (Neg) Urine Fentanyl Screen (Neg) Acetaminophen < 3 L (10-30) ug/ml Urine Barbiturates (Neg) Ur Phencyclidine (PCP) (Neg) U Amphetamin/Meth Scrn (Neg) MDMA (Ecstasy) Screen (Neg) U Benzodiazepines Scrn (Neg) Ur Cocaine Metabolite (Neg) U Marijuana (THC) Screen (Neg) Ethyl Alcohol mg/dL < 10.0 (<10.0) mg/dl Adenovirus (PCR) (NotDetected) B. pertussis DNA (PCR) (NotDetected) B.parapertussis DNA PCR (NotDetected) C. pneumoniae DNA (PCR) (NotDetected) Coronavirus OC43 (PCR) (NotDetected) Coronavirus HKU1 (PCR) (NotDetected) Coronavirus 229E (PCR) (NotDetected) SARS-CoV-2 (PCR) (NotDetected) Coronavirus NL63 (PCR) (NotDetected) Human Metapneumovir PCR (NotDetected) Influenza Type A (PCR) (NotDetected) Influenza Type B (PCR) (NotDetected) M. pneumoniae (PCR) (NotDetected) Parainfluenza 1 (PCR) (NotDetected) Parainfluenza 2 (PCR) (NotDetected) Parainfluenza 3 (PCR) (NotDetected) Parainfluenza 4 (PCR) (NotDetected) RSV (PCR) (NotDetected) Entero/Rhino (PCR) (NotDetected) 11/18/24 Range/Units 09:07 WBC (4.8-10.8) K/ul RBC (4.70-6.10) M/uL Hgb (14.0-18.0) g/dl POC Hgb (14.0-18.0) g/dl Hct (42.0-52.0) % POC Hct (42-52) % MCV (80.0-100.0) fL MCH (25.0-34.0) pg MCHC (32.0-36.0) g/dL RDW Std Deviation (36.4-46.3) fL RDW Coeff of Kale (11.5-14.5) % Plt Count (130-400) K/uL MPV (9.4-12.4) fL Immature Gran % (Auto) % Neut % (Auto) % Lymph % (Auto) % [place] % (Auto) % Eos % (Auto) % Baso % (Auto) % Neut # (Auto) (1.40-6.50) K/uL Lymph # (Auto) (1.20-3.40) K/uL [place] # (Auto) (0.11-0.59) K/uL Eos # (Auto) (0.00-0.50) K/uL Baso # (Auto) (0.00-0.20) K/uL Immature Gran # (Auto) (0.01-0.20) K/uL Absolute Nucleated RBC (0.00-0.12) K/uL Nucleated RBC % (auto) % Hypersegmented Neuts Echinocytes VBG pH (7.36-7.41) VBG pCO2 (38-50) mmHg VBG pO2 mmHg VBG HCO3 mmol/L VBG O2 Saturation % VBG Base Excess mEq/L POC Sodium (135-144) mmol/L Sodium (136-145) mmol/L POC Potassium (3.3-5.0) mmol/L Potassium POC Chloride (101-112) mmol/L Chloride (98-107) mmol/L Carbon Dioxide (21-32) mmol/L POC Total CO2 (24-31) mmol/L Anion Gap (3-11) POC Anion Gap (16-25) mmol/L POC BUN (7-18) mg/dl BUN (6-23) mg/dl Creatinine (0.6-1.4) mg/dl POC Creatinine (0.6-1.3) mg/dl Est Cr Clr Drug Dosing ml/min eGFR BUN/Creatinine Ratio (10-20) Glucose (70-99(Fasting)) mg/dl POC Glucose 83 (70-99) mg/dl POC Glucose (other) (70-99) mg/dl Osmolality (280-300) mOsm/kg Lactate (0.4-2.0) mmol/L Calcium (8.6-10.3) mg/dl POC Ioniz Calcium Heather (1.12-1.32) mmol/l Magnesium (1.7-2.4) mg/dl Total Bilirubin (0.2-1.0) mg/dl AST ALT (7-52) U/L Alkaline Phosphatase (34-104) U/L Total Protein (6.0-8.3) gm/dl Albumin (3.4-5.0) gm/dl Globulin (2.5-4.0) gm/dl Albumin/Globulin Ratio (0.9-2) TSH (0.300-4.500) uIu/ml Free T4 (0.61-1.60) ng/dl Urine Color Urine Appearance (Clear) Urine pH (4.5-7.5) Ur Specific [place] (1.000-1.030) Urine Protein (Negative) Urine Glucose (UA) (Negative) Urine Ketones (Negative) Urine Blood (Negative) Urine Nitrite (Negative) Urine Bilirubin (Negative) Urine Urobilinogen (Negative) Ur Leukocyte Esterase (Negative) Urine WBC (Auto) (0-5) /hpf Urine RBC (Auto) (0-2) /hpf U Hyaline Cast (Auto) (0-2) /lpf U Epithel Cells (Auto) (0-2) /hpf Urine Bacteria (Auto) (None Seen) Urine Osmolality (500-800) mOsm/kg Ur Random Sodium mmol/L Salicylates (3.0-30) mg/dl Urine Opiates Screen (Neg) Ur Methadone, Qual (Neg) Urine Fentanyl Screen (Neg) Acetaminophen (10-30) ug/ml Urine Barbiturates (Neg) Ur Phencyclidine (PCP) (Neg) U Amphetamin/Meth Scrn (Neg) MDMA (Ecstasy) Screen (Neg) U Benzodiazepines Scrn (Neg) Ur Cocaine Metabolite (Neg) U Marijuana (THC) Screen (Neg) Ethyl Alcohol mg/dL (<10.0) mg/dl Adenovirus (PCR) (NotDetected) B. pertussis DNA (PCR) (NotDetected) B.parapertussis DNA PCR (NotDetected) C. pneumoniae DNA (PCR) (NotDetected) Coronavirus OC43 (PCR) (NotDetected) Coronavirus HKU1 (PCR) (NotDetected) Coronavirus 229E (PCR) (NotDetected) SARS-CoV-2 (PCR) (NotDetected) Coronavirus NL63 (PCR) (NotDetected) Human Metapneumovir PCR (NotDetected) Influenza Type A (PCR) (NotDetected) Influenza Type B (PCR) (NotDetected) M. pneumoniae (PCR) (NotDetected) Parainfluenza 1 (PCR) (NotDetected) Parainfluenza 2 (PCR) (NotDetected) Parainfluenza 3 (PCR) (NotDetected) Parainfluenza 4 (PCR) (NotDetected) RSV (PCR) (NotDetected) Entero/Rhino (PCR) (NotDetected) Diagnostic Findings Chest X-Ray 11/18/24 09:02 XR chest 1V portable CLINICAL HISTORY: weakness TECHNIQUE: Single frontal radiograph of the chest was obtained. Comparison: Comparison is made to chest radiograph 10/01/2024 FINDINGS: Median sternotomy wires are unchanged. The cardiomediastinal silhouette is normal. The lungs are clear. No evidence of pleural effusion or pneumothorax. IMPRESSION: No acute chest disease. ACT 112: Negative or not required by law. Electronically signed by: Luis Abrams M.D. 11/18/2024 9:46 AM Abdomen/Pelvis CT 11/18/24 10:33 CT abd pelvis IV con only CLINICAL HISTORY: hypotension TECHNIQUE: Helical axial images of the abdomen and pelvis were obtained and displayed. Automated dose lowering techniques and/or adjustment according to patient size were utilized for this exam. This exam was performed with intravenous contrast. CT DOSE: 812.97 mGy.cm COMPARISON: None available at the time of this dictation. FINDINGS: Lower chest: Bibasilar atelectasis versus scarring is seen. Liver: Focal fatty changes are noted about the falciform ligament. Gallbladder and biliary tree: No calcified gallstones. Normal caliber wall. No intra- or extrahepatic biliary ductal dilation. Pancreas: Unremarkable, no focal lesions. Spleen: Unremarkable. Adrenals: Unremarkable. Kidneys and ureters: Renal cysts are seen. There are nonobstructive renal stones. Bladder: Unremarkable. Reproductive organs: Unremarkable. Bowel: The appendix is normal. Lymph nodes Retroperitoneal: Unremarkable. Pelvic: Unremarkable. Mesenteric: Unremarkable. Peritoneum: Normal. Vessels: Atherosclerotic calcifications are seen. Abdominal wall: Right fat-containing inguinal hernia. Bones: Unremarkable. IMPRESSION: 1. No acute abnormality is seen. 2. Suspicion of bladder wall thickening, correlation for cystitis is recommended. ACT 112: Negative or not required by law. Electronically signed by: Luis Abrams M.D. 11/18/2024 11:18 AM PG Care Time/CCT Total # of Minutes Spent Total Time Spent with Patient: Total time spent is greater than 50% in coordination of care (as documented) at patient's floor/unit and/or counseling patient: I spent 95 minutes overall addressing this case: 20 min in medical data review/discussion with referring provider(s) and/or preparation for the visit 15 min in direct interaction with the patient/exam 30 min in Advance Care Planning/Goals of Care discussions as detailed above in note (must be >16min) 15 min in subsequent review and synthesis of assessment and plan 15 min communicating with other providers regarding the patient's case: Advanced Care Planning 26712 Advanced Care Planning 30 [place] [address] IN/OBS CONSULT LVL 4,60M (25 - SIGNIFICANT, SEPARATELY IDENTIFIABLE ) Patient Type New Medical Decision Making High Complexity Diagnoses Generalized weakness R53.1 Noncompliance with medication regimen Z91.148 Encounter for hospice care discussion Z71.89 Advanced care planning/counseling discussion Z71.89 Palliative care by specialist Z51.5 Additional Codes Advanced Care Planning - 97026 Advanced Care Planning 30 Min: 44164 Advanced Care Planning 30 Min ([id number])
--- NOTE | 2024-11-22 16:26 | Hospitalist Progress Note ---
Date of Service November 22, 2024 Assessment & Plan (1) Adrenal crisis: Plan: 58-year-old male with a history of adrenomyeloneuropathy, complex regional pain syndrome who presents in adrenal crisis due to medication noncompliance in the setting of 6 months of worsening depression and weakness. 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 No blood pressure confusion and some energy deficits was likely due to sliding back to a [place] crisis yesterday, hopefully now will continue to progress well. If continuing to progress well we will trial a transition to stress dosed oral steroid course tomorrow, and then can potentially down titrate this if doing well after another 2-3 days. Adrenomyeloneuropathy, complex regional pain syndrome With spinal cord atrophy. Follows with [facility]. Brain and spine MRIs reviewed, MRIB 07/2024 did not show any acute processes. Single enhancing focus of left frontal white matter was noted postcontrast images did not show any enhancing lesions. Significant spinal cord atrophy was seen on MRI 07/2024. Dissipate underlying progressive weakness continue to brace however patient also likely has a acute at least partially reversible component both from his acute adrenal crisis and acute deconditioning Patient's predominant concern and quality of life protractor is diffuse pain; Not have good success following with pain management, inadequate control with duloxetine and inadequate improvement with gabapentin. Remeron has been added as noted and will hold dose titration of duloxetine today. Hypotension Improved. Due to adrenal crisis and poor p.o. intake, progressing. Hold antihypertensives. Encourage p.o. Poor p.o. intake and appeared contracted, 500 cc supplemental Obrien's o rdered at maintenance 1/3 Major depression, possibly with hypoactive psychosis Patient reported hearing voices from the wall, although of note there is a nursing intercom. His reports that he was talking to voices that were not present at home although patient adamantly denies this and appears oriented at time of visit Given his severe hypoactive depression do feel he would benefit from a stimulant. Ritalin is with increased risk given his history of heart attack in the last year, modafinil is a reasonable alternative however we will stabilize from an adrenal standpoint and then evaluate this Currently requiring further medical treatment for his adrenal insufficiency. Once this is stabilized then can reevaluate for BHU management but will need improved strength and be able to ambulate for this. Will reevaluate daily, appreciate psychiatric assistance. May not leave AMA, see psychiatric consultation. Appreciate care and recommendations Goals of care Patient is with underlying progressive irreversible disease, but also not with end-stage progression at this time. Palliative was consulted, does not currently meet hospice criteria. Goals of care currently are slightly obscured by underlying depression and low energy with adrenal crisis. Appreciate palliative consultation. Will continue to assess as patient progresses. Disposition: Admit to PCU telemetry DNR/DNI Heart healthy diet VTE PPx: Lovenox 40 mg SQ q24h (2) Hypotension: (3) Severe dehydration: (4) Depression: (5) Hyponatremia: (6) Hypokalemia: (7) Noncompliance with medication regimen: Admission and Anticipated Discharge Date Admission Date: November 18, 2024 Subjective Seen at the bedside in morning, and again with his present for a family meeting between patient, his , son, and Dr. Villegas. Discussed treatment goals at length. Currently does have significant impairment and has improving adrenal crisis, but still persists with low energy and hallucinations which have taken up to a week to clear with his prior crises. He is at risk for metabolic encephalopathy and delirium with this, additionally has underlying depression and hallucinations/contribution from MDD are also within the differential. He does appear more alert and gives more appropriate answers to questions today but again does have confusion, thought blocking, increase speech latency with low volume, intermittently responds to stimuli on the room concerning for possible A H/VH. Physical Exam Physical Exam: General: Appears withdrawn, depressed. Improved energy compared to prior but still with abnormal prosody, low speech volume, increased speech latency. HEENT: Atraumatic, normocephalic. Pulm: CTAB A&P. -wheezes, -rales, -rhonchi. Symmetrical chest rise. No increased work of breathing. No respiratory distress. Cardiac: RRR, -mrg. Radial pulses intact and symmetrical. Midline healed scar is present Extremities: Minimal to no lower extremity edema today, some hand edema chronically persists. Results & Data Results & Data Vital Signs (Past 12 Hours) Vital Signs Temp Pulse Resp BP Pulse Ox O2 Del Method 11/22/24 12:31 36.4 C L 70 18 120/70 100 Room Air 11/22/24 07:10 36.6 C 74 18 124/79 99 Room Air PG Care Time/CCT Total # of Minutes Spent Total Time Spent with Patient: Total time spent is greater than 50% in coordination of care (as documented) at patient's floor/unit and/or counseling patient: Coding Level of Care Code 99427 SUB INP/OBS CARE 3/50MIN Diagnoses Adrenal crisis E27.2 Hypotension due to hypovolemia E86.1 Hypotension type: hypotension due to hypovolemia Severe dehydration E86.0 Depression F32.A Hyponatremia E87.1 Hypokalemia E87.6 Noncompliance with medication regimen Z91.148 (2) Hypotension Hypotension type: hypotension due to hypovolemia Qualified Code(s): E86.1 - Hypovolemia
[2024-11-22] MEDS ORDERED: ONDANSETRON INJ 2 MG/ML 2 ML VIAL IV PRN (16:32)
[2024-11-23] MEDS: HYDROCORTISONE 10 MG TAB PO SCH ×2 (07:45→17:20)
[2024-11-23 07:54] LABS: Eosinophils # (auto) 0.03 K/uL (0.00-0.50); Eosinophils % (auto) 0.4 %; Hematocrit (blood only) 36.3 % (42.0-52.0); Hemoglobin 12.9 g/dl (14.0-18.0); Immature Granulocytes # (auto) 0.02 K/uL (0.01-0.20); Immature Granulocytes % (auto) 0.3 %; Lymphocytes % (auto) 16.4 %; Mean Corpuscular Hemoglobin 33.1 pg (25.0-34.0); Mean Corpuscular Hgb Conc 35.5 g/dL (32.0-36.0); Mean Corpuscular Volume 93.1 fL (80.0-100.0); Mean Platelet Volume 10.2 fL (9.4-12.4); Monocytes # (auto) 0.35 K/uL (0.11-0.59); Monocytes % (auto) 5.2 %; Neutrophils # (auto) 5.21 K/uL (1.40-6.50); Neutrophils % (auto) 77.7 %; Platelet Count 149 K/uL (130-400); RDW Coefficient of Variation 15.7 % (11.5-14.5); RDW Standard Deviation 53.1 fL (36.4-46.3); White Blood Count 6.71 K/ul (4.8-10.8)
[2024-11-23 08:25] LABS: BUN Creatinine Ratio 32.1 (10-20); Calcium 8.8 mg/dl (8.6-10.3); Creatinine Clr Calc Pharmacy 145.1 ml/min; Potassium 3.1 mmol/L (3.5-5.1)
[2024-11-23] MEDS: POTASSIUM CHLORIDE / WTR 10 MEQ/100 ML PLCT IV SCH (09:24)
--- NOTE | 2024-11-23 12:48 | Hospitalist Progress Note ---
Date of Service November 23, 2024 Assessment & Plan (1) Adrenal crisis: Plan: 58-year-old male with a history of adrenomyeloneuropathy, complex regional pain syndrome who presents in adrenal crisis due to medication noncompliance in the setting of 6 months of worsening depression and weakness. 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 Will trial stress dose orals 11/23 and 11/24 Adrenomyeloneuropathy, complex regional pain syndrome With spinal cord atrophy. Follows with [facility]. Brain and spine MRIs reviewed, MRIB 07/2024 did not show any acute processes. Single enhancing focus of left frontal white matter was noted postcontrast images did not show any enhancing lesions. Significant spinal cord atrophy was seen on MRI 07/2024. Dissipate underlying progressive weakness continue to brace however patient also likely has a acute at least partially reversible component both from his acute adrenal crisis and acute deconditioning Patient's predominant concern and quality of life protractor is diffuse pain; Not have good success following with pain management, inadequate control with duloxetine and inadequate improvement with gabapentin. Remeron deferred at patient's request until discussed with neurology Messages left with [facility]/neurology to review patient's case. Will not be available to discuss his case and plan until 11/25 per med call Hypotension Improved. 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 Ritalin is with increased risk given his history of heart attack in the last year, modafinil is a reasonable alternative however we will stabilize from an adrenal standpoint and then evaluate this Currently requiring further medical treatment for his adrenal insufficiency. Once this is stabilized then can reevaluate for BHU management but will need improved strength and be able to ambulate for this. Will reevaluate daily, appreciate psychiatric assistance. May not leave AMA, see psychiatric consultation. Appreciate care and recommendations Diarrhea C. difficile test ordered. If negative then can use Imodium Goals of care Patient is with underlying progressive irreversible disease, but also not with end-stage progression at this time. Palliative was consulted, does not currently meet hospice criteria. Goals of care currently are slightly obscured by underlying depression and low energy with adrenal crisis. Appreciate palliative consultation. Will continue to assess as patient progresses. Disposition: Admit to PCU telemetry DNR/DNI Heart healthy diet VTE PPx: Lovenox 40 mg SQ q24h (2) Hypotension: (3) Severe dehydration: (4) Depression: (5) Hyponatremia: (6) Hypokalemia: (7) Noncompliance with medication regimen: Admission and Anticipated Discharge Date Admission Date: November 18, 2024 Subjective Seen at the bedside. Has had liquid diarrhea today. No other concerns, does express that he has more energy and thinks he would like to go home but also would like to get treatment for his depression. Energy appears improved and is more alert at the bedside compared to prior. Calls made to [facility] neurology/[facility] to discuss patient's case and plan, notified by center that we will not be able to get a call back until at least Monday and they are not able to perform a phone consultation over the weekend. Physical Exam Physical Exam: General: Appears withdrawn, speech latency and volume has slightly improved although cysts with intermittent thought blocking and withdrawn affect HEENT: Atraumatic, normocephalic. Pulm: CTAB A&P. -wheezes, -rales, -rhonchi. Symmetrical chest rise. No increased work of breathing. No respiratory distress. Cardiac: RRR, -mrg. Radial pulses intact and symmetrical. Midline healed scar is present Results & Data Results & Data Vital Signs (Past 12 Hours) Vital Signs Temp Pulse Pulse Resp BP BP Pulse Ox 11/23/24 11:41 61 11/23/24 10:47 36.6 C 63 16 121/76 95 11/23/24 07:37 11/23/24 07:00 36.5 C 66 18 123/83 94 11/23/24 02:54 36.4 C L 63 18 127/76 97 O2 Del Method 11/23/24 11:41 11/23/24 10:47 Room Air 11/23/24 07:37 Room Air 11/23/24 07:00 Room Air 11/23/24 02:54 Room Air PG Care Time/CCT Total # of Minutes Spent Total Time Spent with Patient: Total time spent is greater than 50% in coordination of care (as documented) at patient's floor/unit and/or counseling patient: Coding Level of Care Code 79137 SUB INP/OBS CARE 3/50MIN Diagnoses Adrenal crisis E27.2 Hypotension due to hypovolemia E86.1 Hypotension type: hypotension due to hypovolemia Severe dehydration E86.0 Depression F32.A Hyponatremia E87.1 Hypokalemia E87.6 Noncompliance with medication regimen Z91.148 (2) Hypotension Hypotension type: hypotension due to hypovolemia Qualified Code(s): E86.1 - Hypovolemia
[2024-11-23] MEDS: modafiniL 100 MG TAB PO SCH (14:22)
[2024-11-24] MEDS: LOPERAMIDE HCL 2 MG CAP PO PRN (06:25)
[2024-11-24 07:58] LABS: Eosinophils # (auto) 0.03 K/uL (0.00-0.50); Eosinophils % (auto) 0.4 %; Hematocrit (blood only) 37.2 % (42.0-52.0); Hemoglobin 13.1 g/dl (14.0-18.0); Immature Granulocytes # (auto) 0.02 K/uL (0.01-0.20); Immature Granulocytes % (auto) 0.3 %; Lymphocytes # (auto) 1.56 K/uL (1.20-3.40); Lymphocytes % (auto) 23.3 %; Mean Corpuscular Hemoglobin 32.8 pg (25.0-34.0); Mean Corpuscular Hgb Conc 35.2 g/dL (32.0-36.0); Mean Corpuscular Volume 93.2 fL (80.0-100.0); Mean Platelet Volume 10.4 fL (9.4-12.4); Monocytes # (auto) 0.38 K/uL (0.11-0.59); Monocytes % (auto) 5.7 %; Neutrophils % (auto) 70.3 %; Platelet Count 150 K/uL (130-400); RDW Coefficient of Variation 15.9 % (11.5-14.5); RDW Standard Deviation 53.9 fL (36.4-46.3); Red Blood Count 3.99 M/uL (4.70-6.10); White Blood Count 6.69 K/ul (4.8-10.8)
[2024-11-24 08:12] LABS: Calcium 8.8 mg/dl (8.6-10.3); Creatinine Clr Calc Pharmacy 134.8 ml/min; Potassium 3.9 mmol/L (3.5-5.1)
[2024-11-24] MEDS: HYDROCORTISONE 10 MG TAB PO SCH ×3 (08:13→20:55)
--- NOTE | 2024-11-24 15:04 | Psychiatric Progress Note ---
Date of Service November 24, 2024 Impression / Recommendations Impression Diagnostically consistent with unspecified depression-presentation consistent with likely hypoactive delirium given confusion/lack of orientation and/or severe major depression given significant latency of speech with possible psychotic features given thought disorganization and possible hallucinations/internal preoccupation. However, further collateral from his will be helpful to further elucidate recent symptoms. No evidence for catatonia at this time but should remain on differential given report of recent poor intake and latent speech. A: Still with some confusion but mood improving, increasingly suspect that some of the symptoms previously thought to be depression (speech latency, psychosis) are due to hypoactive delirium.Still some evidence for lingering delirium but improving steadily. Main symptom targets remain increasing appetite and motivation to participate with PT/movement. Seems to be tolerating modafinil well without any emerge of new psychosis/paranoia and seems to be helping with alertness and engagement and mood. Would start mirtazapine at HS to help with appetite/mood/sleep and potentially nausea. At this point it's much less clear if he would meet 302 criteria but given delirium also doesn't seem to have decision making capacity to leave AMA he attempted to do so. Overall, I spent a total of 60 minutes with this case including review of chart records, review of labwork, review of EKG QTc, direct evaluation of the patient at bedside, counseling the patient, discussion of the patient with the hospitalist provider, discussion with the psychiatric liason during clinical rounds, review of collateral information from family, and documentation in the electronic health record. (1) Delirium due to another medical condition: (2) Depression: (3) Adrenomyeloneuropathy: (4) Adrenal crisis: (5) Generalized weakness: (6) Adreno-leukodystrophy: Plan -He may not leave AMA due to ongoing delirium and would need to be screened for 302 criteria. If he attempts to leave security and psych liason should be called. -Continue with duloxetine as ordered, can increase to 60mg daily in 2-3 days -Start mirtazapine 15mg HS -Increase modafinil to 100mg qAM tomorrow Interval History Identifying Information 58 yo man with a history of adrenal myelo neuropathy, adrenoleukodystrophy, CRPS, depression, hypogonadism, and mixed hyperlipidemia admitted medically with concern for [place]'s crisis and dehydration. Psychiatry consulted for concern for depression contributing to medication non-adherence. Chief Complaint "Good, hanging in there". Subjective Subjective Patient was seen & assessed and interval progress reviewed. He is seen bedside accompanied by his and alongside hospitalist and psych liason. He reports his mood is "good" today. Still with some confusion at times (doesn't remember where we are nor year but knows city and month). Seems to have some brief hallucinations vs confused by excess stimulation from TV remote and other visitors talking in the room. he would like to try mirtazapine and he and his remain agreeable to trial of modafinil which he seems to be tolerating well so far. Today appears more alert, sitting up, eyes open and able to engage for longer periods of time. Continues to hardly eat, Olamide suspects it is due to nausea and low motivation. Physical Exam Psychiatric Orientation: alert and oriented to person; + not oriented to place and + not oriented to time (month but not year) Apperance: appropriately dressed Eye Contact: + fair eye contact Motor Behavior: no abnormal motor movements Speech: + abnormal rate/rhythm/volume of speech (significant lessening of latency) Affect: + constricted affect Mood: + depressed mood Thought Process: + circumstantial thought process and + looseness of associations Thought Content: reality based without delusions Suicidal Thoughts: denies suicidal thoughts and denies suicidal plan Hallucinations: + auditory hallucinations (possible, brief, lessening) Insight: + limited insight Judgment: + limited judgement Vital Signs (Past 24 Hours) Last Vital Signs Temp 36.7 C 11/24/24 12:00 Pulse 81 11/24/24 12:00 Resp 18 11/24/24 12:00 BP 119/60 11/24/24 12:00 Pulse Ox 98 11/24/24 12:00 O2 Del Method Room Air 11/24/24 12:00 Results & Data ([facility]) Laboratory Results Laboratory Results - last 24 hr 11/24/24 07:20 WBC 6.69 RBC 3.99 L Hgb 13.1 L Hct 37.2 L MCV 93.2 MCH 32.8 MCHC 35.2 RDW Std Deviation 53.9 H RDW Coeff of Kale 15.9 H Plt Count 150 MPV 10.4 Immature Gran % (Auto) 0.3 Neut % (Auto) 70.3 Lymph % (Auto) 23.3 [place] % (Auto) 5.7 Eos % (Auto) 0.4 Baso % (Auto) 0.0 Neut # (Auto) 4.70 Lymph # (Auto) 1.56 [place] # (Auto) 0.38 Eos # (Auto) 0.03 Baso # (Auto) 0.00 Immature Gran # (Auto) 0.02 Sodium 136 Potassium 3.9 D Chloride 103 Carbon Dioxide 25 Anion Gap 8 BUN 18 Creatinine 0.60 Est Cr Clr Drug Dosing 134.8 eGFR 111.89 BUN/Creatinine Ratio 30.0 H Glucose 79 Calcium 8.8 Current Inpatient Medications Current Inpatient Medications: Current Inpatient Medications Acetaminophen (Acetaminophen 325 Mg Tab) 650 mg PO Q4H PRN PRN Reason: Pain or Fever Stop: 12/18/24 14:40 Aspirin (Aspirin 81 Mg Ectab) 81 mg PO DAILY [facility] Stop: 12/19/24 08:59 Last Admin: 11/24/24 08:14 Dose: 81 mg Atorvastatin Calcium (Atorvastatin 40 Mg Tab) 80 mg PO QPM [place] Stop: 12/18/24 20:59 Last Admin: 11/23/24 21:08 Dose: 80 mg Baclofen (Baclofen 10 Mg Tab) 10 mg PO BID PRN PRN Reason: Pain Stop: 12/18/24 14:40 Duloxetine HCl (Duloxetine Hcl 30 Mg Cap) 30 mg PO DAILY [place] Stop: 12/19/24 08:59 Last Admin: 11/24/24 08:14 Dose: 30 mg Enoxaparin Sodium (Enoxaparin Inj 40 Mg/0.4 Ml Syr) 40 mg SQ Q24H [place] Stop: 12/18/24 20:59 Last Admin: 11/23/24 21:08 Dose: 40 mg Fludrocortisone Acetate (Fludrocortisone Acetate 0.1 Mg Tab) 0.1 mg PO DAILY [place] Stop: 12/19/24 08:59 Last Admin: 11/24/24 08:14 Dose: 0.1 mg Hydrocortisone (Hydrocortisone 10 Mg Tab) 20 mg PO 2000 [facility] Stop: 12/24/24 19:59 Hydrocortisone (Hydrocortisone 10 Mg Tab) 40 mg PO 0800 [place] Stop: 12/24/24 07:59 Last Admin: 11/24/24 08:13 Dose: 40 mg Hydrocortisone (Hydrocortisone 10 Mg Tab) 20 mg PO 1400 [place] Stop: 12/24/24 13:59 Last Admin: 11/24/24 13:56 Dose: 20 mg Dextrose/Lactated Ringer's (D5w And Lactated Ringers) 1,000 mls @ 125 mls/hr IV .Q8H [facility] Stop: 11/24/24 22:44 Levothyroxine Sodium (Levothyroxine Sodium 50 Mcg Tablet) 50 mcg PO DAILYBB [facility] Stop: 12/19/24 06:29 Last Admin: 11/24/24 06:25 Dose: 50 mcg Loperamide HCl (Loperamide Hcl 2 Mg Cap) 2 mg PO BID PRN PRN Reason: Diarrhea Stop: 12/23/24 14:17 Last Admin: 11/24/24 06:25 Dose: 2 mg Mirtazapine (Mirtazapine Tab 15 Mg Tab) 15 mg PO HS [facility] Stop: 12/22/24 20:59 Modafinil (Modafinil 100 Mg Tab) 50 mg PO QAM [facility] Stop: 12/23/24 13:29 Last Admin: 11/24/24 08:20 Dose: 50 mg Ondansetron HCl (Ondansetron Inj 2 Mg/Ml 2 Ml Vial) 4 mg IV Q4H PRN PRN Reason: Nausea Stop: 12/22/24 16:31 Pantoprazole Sodium (Pantoprazole 40 Mg Tab) 40 mg PO DAILY [facility] Stop: 12/19/24 08:59 Last Admin: 11/24/24 08:14 Dose: 40 mg Potassium Chloride (Potassium Chloride Crtab 20 Meq Tabcr) 20 meq PO TID [facility] Stop: 12/18/24 14:59 Last Admin: 11/24/24 13:55 Dose: 20 meq Tamsulosin HCl (Tamsulosin Hcl 0.4 Mg Cap) 0.4 mg PO QAM [facility] Stop: 12/19/24 09:59 Last Admin: 11/24/24 08:13 Dose: 0.4 mg
--- NOTE | 2024-11-24 15:13 | Hospitalist Progress Note ---
Date of Service November 24, 2024 Assessment & Plan (1) Adrenal crisis: Plan: 58-year-old male with a history of adrenomyeloneuropathy, complex regional pain syndrome who presents in adrenal crisis due to medication noncompliance in the setting of 6 months of worsening depression and weakness. 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 Continue hydrocortisone 40 mg a.m., 20 mg 1400, 20 mg 2000. If doing well will transition to 08/09/10 regimen ~11/26. blood pressure stable Adrenomyeloneuropathy, complex regional pain syndrome With spinal cord atrophy. Follows with [facility]. Brain and spine MRIs reviewed, MRIB 07/2024 did not show any acute processes. Single enhancing focus of left frontal white matter was noted postcontrast images did not show any enhancing lesions. Significant spinal cord atrophy was seen on MRI 07/2024. Dissipate underlying progressive weakness continue to brace however patient also likely has a acute at least partially reversible component both from his acute adrenal crisis and acute deconditioning Patient's predominant concern and quality of life protractor is diffuse pain; Not have good success following with pain management, inadequate control with duloxetine and inadequate improvement with gabapentin. Remeron deferred at patient's request until discussed with neurology Messages left with [facility] [place]/neurology to review patient's case. Will not be available to discuss his case and plan until 11/25 per med call. Did review on-call neurology. Possible for his underlying disease to affect his cognition certainly although there were no signs of this on an MRI within the last few months and his depression, AI, and potential delirium are all likely causing significant contribution. While there may be an underlying element from his progressive disease, agree with treatment of potential depression and AI as recommended by hospitalist and psychiatric team. Hypotension Improved. 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 Ritalin is with increased risk given his history of heart attack in the last year, modafinil is a reasonable alternative however we will stabilize from an adrenal standpoint and then evaluate this Currently requiring further medical treatment for his adrenal insufficiency. Once this is stabilized then can reevaluate for BHU management but will need improved strength and be able to ambulate for this. Will reevaluate daily, appreciate psychiatric assistance. May not leave AMA, see psychiatric consultation. Appreciate care and recommendations Modafinil uptitrated to 100 mg. Remeron added 15 mg p.o. at bedtime Diarrhea Chronic C. difficile is negative Imodium symptomatic treatment Goals of care Patient is with underlying progressive irreversible disease, but also not with end-stage progression at this time. Palliative was consulted, does not currently meet hospice criteria. Goals of care currently are slightly obscured by underlying depression and low energy with adrenal crisis. Appreciate palliative consultation. Will continue to assess as patient progresses. Disposition: Admit to PCU telemetry DNR/DNI Heart healthy diet VTE PPx: Lovenox 40 mg SQ q24h (2) Hypotension: (3) Severe dehydration: (4) Depression: (5) Hyponatremia: (6) Hypokalemia: (7) Noncompliance with medication regimen: Admission and Anticipated Discharge Date Admission Date: November 18, 2024 Subjective Seen at the bedside. Appears intermittently confused, but with more energy. More direct eye contact. Still struggles to form continuous senses and thought process is not completely linear. Physical Exam Physical Exam: General: Energy, affect improved. Continues with tangential thought process, is not oriented to place but is oriented to month. HEENT: Atraumatic, normocephalic. Pulm:Symmetrical chest rise. No increased work of breathing. No respiratory distress. Extremities: Moving extremities equally Results & Data Results & Data Vital Signs (Past 12 Hours) Vital Signs Temp Pulse Pulse Resp BP Pulse Ox O2 Del Method 11/24/24 12:00 36.7 C 81 18 119/60 98 Room Air 11/24/24 09:30 69 11/24/24 07:32 36.6 C 74 16 108/68 99 Room Air 11/24/24 03:48 36.7 C 71 16 127/83 97 Room Air PG Care Time/CCT Total # of Minutes Spent Total Time Spent with Patient: Total time spent is greater than 50% in coordination of care (as documented) at patient's floor/unit and/or counseling patient: Coding Level of Care Code 98620 SUB INP/OBS CARE 3/50MIN Diagnoses Adrenal crisis E27.2 Hypotension due to hypovolemia E86.1 Hypotension type: hypotension due to hypovolemia Severe dehydration E86.0 Depression F32.A Hyponatremia E87.1 Hypokalemia E87.6 Noncompliance with medication regimen Z91.148 (2) Hypotension Hypotension type: hypotension due to hypovolemia Qualified Code(s): E86.1 - Hypovolemia
[2024-11-24] MEDS: D5W AND LACTATED RINGERS 1,000 ML IV SCH (15:14)
[2024-11-24] MEDS: MIRTAZAPINE TAB 15 MG TAB PO SCH (21:42)
[2024-11-25] MEDS: modafiniL 100 MG TAB PO SCH (08:13)
[2024-11-25 08:21] LABS: Eosinophils # (auto) 0.07 K/uL (0.00-0.50); Hemoglobin 13.5 g/dl (14.0-18.0); Immature Granulocytes # (auto) 0.03 K/uL (0.01-0.20); Immature Granulocytes % (auto) 0.4 %; Lymphocytes # (auto) 1.23 K/uL (1.20-3.40); Lymphocytes % (auto) 17.3 %; Mean Corpuscular Hemoglobin 32.9 pg (25.0-34.0); Mean Corpuscular Hgb Conc 35.5 g/dL (32.0-36.0); Mean Corpuscular Volume 92.7 fL (80.0-100.0); Mean Platelet Volume 10.1 fL (9.4-12.4); Monocytes # (auto) 0.33 K/uL (0.11-0.59); Monocytes % (auto) 4.6 %; Neutrophils # (auto) 5.45 K/uL (1.40-6.50); Neutrophils % (auto) 76.7 %; Platelet Count 168 K/uL (130-400); RDW Coefficient of Variation 15.2 % (11.5-14.5); RDW Standard Deviation 51.9 fL (36.4-46.3); White Blood Count 7.11 K/ul (4.8-10.8)
[2024-11-25 08:39] LABS: BUN Creatinine Ratio 24.2 (10-20); Calcium 8.7 mg/dl (8.6-10.3); Creatinine Clr Calc Pharmacy 132.2 ml/min; Potassium 3.8 mmol/L (3.5-5.1)
--- NOTE | 2024-11-25 12:28 | Hospitalist Progress Note ---
Date of Service November 25, 2024 Assessment & Plan (1) Adrenal crisis: Plan: 58-year-old male with a history of adrenomyeloneuropathy, complex regional pain syndrome who presents in adrenal crisis due to medication noncompliance in the setting of 6 months of worsening depression and weakness. 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 Continue hydrocortisone 40 mg a.m., 20 mg 1400, 20 mg 2000. Doing well and stable 11/25, anticipate transitioning to 08/09/10 on 11/26. Adrenomyeloneuropathy, complex regional pain syndrome With spinal cord atrophy. Follows with [facility]. Brain and spine MRIs reviewed, MRIB 07/2024 did not show any acute processes. Single enhancing focus of left frontal white matter was noted postcontrast images did not show any enhancing lesions. Significant spinal cord atrophy was seen on MRI 07/2024. Dissipate underlying progressive weakness continue to brace however patient also likely has a acute at least partially reversible component both from his acute adrenal crisis and acute deconditioning Patient's predominant concern and quality of life protractor is diffuse pain; Not have good success following with pain management, inadequate control with duloxetine and inadequate improvement with gabapentin. Remeron deferred at patient's request until discussed with neurology Messages left with [facility] [place]/neurology to review patient's case. Will not be available to discuss his case and plan until 11/25 per med call. Did review on-call neurology. Possible for his underlying disease to affect his cognition certainly although there were no signs of this on an MRI within the last few months and his depression, AI, and potential delirium are all likely causing significant contribution. While there may be an underlying element from his progressive disease, agree with treatment of potential depression and AI as recommended by hospitalist and psychiatric team. Hypotension Improved. 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 Ritalin is with increased risk given his history of heart attack in the last year, modafinil is a reasonable alternative however we will stabilize from an adrenal standpoint and then evaluate this Currently requiring further medical treatment for his adrenal insufficiency. Once this is stabilized then can reevaluate for BHU management but will need improved strength and be able to ambulate for this. Will reevaluate daily, appreciate psychiatric assistance. May not leave AMA, see psychiatric consultation. Appreciate care and recommendations Affect energy appears greatly improved, will continue modafinil at 100 mg Continue Remeron 15 mg at bedtime Diarrhea Chronic C. difficile is negative Imodium symptomatic treatment Goals of care Patient is with underlying progressive irreversible disease, but also not with end-stage progression at this time. Palliative was consulted, does not currently meet hospice criteria. Goals of care currently are slightly obscured by underlying depression and low energy with adrenal crisis. Appreciate palliative consultation. Will continue to assess as patient progresses. Disposition: Admit to PCU telemetry DNR/DNI Heart healthy diet VTE PPx: Lovenox 40 mg SQ q24h (2) Hypotension: (3) Severe dehydration: (4) Depression: (5) Hyponatremia: (6) Hypokalemia: (7) Noncompliance with medication regimen: Admission and Anticipated Discharge Date Admission Date: November 18, 2024 Subjective Seen the bedside this morning. Reports he feels he is progressing towards being able to come home and hopes to do this is soon as possible, and does feel that he has had some improvement today. Voice volume and prosody, and affect is n oticeably improved. Not responding to internal stimuli this morning, although still with some incomplete sentences/thought blocking thought process is generally becoming linear occasionally tangential. Appetite is still poor and has not eaten much today Physical Exam Physical Exam: General: Energy and affect greatly improved from prior. Thought process occasionally tangential, becoming more linear. Voices with improved volume and prosody HEENT: Atraumatic, normocephalic. Pulm:Symmetrical chest rise. No increased work of breathing. No respiratory distress. Extremities: Moving extremities equally Results & Data Results & Data Vital Signs (Past 12 Hours) Vital Signs Temp Pulse Resp BP Pulse Ox O2 Del Method 11/25/24 11:29 36.9 C 66 16 122/76 97 Room Air 11/25/24 07:55 36.9 C 70 18 125/84 96 Room Air 11/25/24 03:19 36.7 C 71 18 117/75 98 Room Air PG Care Time/CCT Total # of Minutes Spent Total Time Spent with Patient: Total time spent is greater than 50% in coordination of care (as documented) at patient's floor/unit and/or counseling patient: Coding Level of Care Code 79010 SUB INP/OBS CARE 3/50MIN Diagnoses Adrenal crisis E27.2 Hypotension due to hypovolemia E86.1 Hypotension type: hypotension due to hypovolemia Severe dehydration E86.0 Depression F32.A Hyponatremia E87.1 Hypokalemia E87.6 Noncompliance with medication regimen Z91.148 (2) Hypotension Hypotension type: hypotension due to hypovolemia Qualified Code(s): E86.1 - Hypovolemia
[2024-11-26 07:27] LABS: BUN Creatinine Ratio 19.4 (10-20); Calcium 8.5 mg/dl (8.6-10.3); Creatinine Clr Calc Pharmacy 134.1 ml/min; Potassium 3.3 mmol/L (3.5-5.1)
[2024-11-26 07:59] LABS: Magnesium 1.5 mg/dl (1.7-2.4)
[2024-11-26] MEDS: HYDROCORTISONE 10 MG TAB PO SCH ×3 (08:33→20:56)
[2024-11-26] MEDS: POTASSIUM CHLORIDE / WTR 10 MEQ/100 ML PLCT IV SCH (08:36)
[2024-11-26] MEDS: MAGNESIUM SULFATE / D5W 1 GM/100 ML BAG IV SCH (08:47)
[2024-11-26] MEDS: MAGNESIUM OXIDE 400 MG TAB PO SCH (08:58)
--- NOTE | 2024-11-26 10:53 | Communication Note ---
Date of Service: November 26, 2024 Palliative Medicine Brief Note Chart reviewed/medical team update received No acute IP Pall med needs He is under the careful watch of psychiatry He is no eligible for AMA dc A family meeting was held earlier this admission with , pt is not eligible for hospice at this time Palliative Medicine will sign off, and remain available to assist / reengage if needed. Discussed with Dr Philip TS 15min NO charge submitted Thank you for allowing us to participate in the ongoing care of this patient. Please page with any additional concerns. Kd Du DNP Director, Palliative Medicine
--- NOTE | 2024-11-26 11:39 | Psychiatric Progress Note ---
Date of Service November 26, 2024 Impression / Recommendations Impression Diagnostically consistent with unspecified depression-presentation consistent with likely hypoactive delirium given confusion/lack of orientation and/or severe major depression given significant latency of speech with possible psychotic features given thought disorganization and possible hallucinations/internal preoccupation. However, further collateral from his will be helpful to further elucidate recent symptoms. No evidence for catatonia at this time but should remain on differential given report of recent poor intake and latent speech. A: Mood improving, energy improving, trying to eat and no evidence for confusion or hallucinations on assessment today. He does not meet 302 criteria and prefers to return home once medically stable. Reviewed ways to try to improve adherence with movement, behavioral activation, eating and taking medications to continue his clinical improvement. Acute risk of self-harm is low given denial of SI, future-focused, supportive family, hopeful, eating/drinking, engaging more in treatment and no longer with delirium/adrenal crisis. Chronic risk is low given no history of prior attempts but with hx of depression, hx of chronic illness and pain but also with corey pportive family, sense of responsibility to family and social supports, capacity to establish therapeutic alliance. Counseled on ways to reduce acute and chronic risk including engaging with outpatient providers, utilizing supports, taking medication, and behavioral activation and ongoing exploration for pain management options. Modifiable risk factors of delirium, low energy, poor po intake, poor sleep, depression were addressed during hospitalization. Overall, I spent a total of 50 minutes with this case including review of chart records, review of labwork, review of EKG QTc, direct evaluation of the patient at bedside, counseling the patient, discussion of the patient with the hospitalist provider, discussion with the psychiatric liason during clinical rounds, review of collateral information from family, and documentation in the electronic health record. (1) Delirium due to another medical condition: (2) Depression: (3) Adrenomyeloneuropathy: (4) Adrenal crisis: (5) Generalized weakness: (6) Adreno-leukodystrophy: Plan 11/26/2024: -safe for discharge from psychiatric standpoint -would continue mirtazapine 15mg HS, modafinil 100mg daily and duloxetine 30mg daily (with option to increase to 60mg in 1-2 weeks). If medication non- adherence remains challenging in the outpatient setting would consider discontinuation of duloxetine in favor of fluoxetine given much longer half-life and self-tapers with less likelihood for serotonin withdrawal with intermittent use. Interval History Identifying Information 58 yo man with a history of adrenal myelo neuropathy, adrenoleukodystrophy, CRPS, depression, hypogonadism, and mixed hyperlipidemia admitted medically with concern for Tyrone's crisis and dehydration. Psychiatry consulted for concern for depression contributing to medication non-adherence. Chief Complaint "I slept well". Subjective Subjective Patient was seen & assessed and interval progress reviewed. Took po medications today. Sitting up in bed eating with by bedside. Reports sleeping well. Denies any medication side effects. No further hallucinations per his report and per Olamide's report. Still some word finding difficulty at times per Olamide but significantly lessening. He feels his energy level is good. Physical Exam Psychiatric Orientation: alert, oriented x 3 and cooperative Apperance: appropriately dressed and appropriately groomed Eye Contact: good eye contact Motor Behavior: no abnormal motor movements Speech: normal rate/rhythm/volume of speech Affect: + constricted affect (but brighter compared to recent days) Mood: + depressed mood (lessening significantly) Thought Process: goal directed thought process Thought Content: reality based without delusions Suicidal Thoughts: denies suicidal thoughts, denies suicidal plan and denies suicidal intent Hallucinations: no auditory hallucinations and no visual hallucinations Insight: + limited insight Judgment: + limited judgement Vital Signs (Past 24 Hours) Last Vital Signs Temp 36.7 C 11/26/24 11:29 Pulse 66 11/26/24 11:29 Resp 18 11/26/24 11:29 BP 136/85 11/26/24 11:29 Pulse Ox 98 11/26/24 11:29 O2 Del Method Room Air 11/26/24 11:29 Results & Data ([facility]) Laboratory Results Laboratory Results - last 24 hr 11/26/24 06:51 Sodium 136 Potassium 3.3 L Chloride 102 Carbon Dioxide 26 Anion Gap 8 BUN 12 Creatinine 0.62 Est Cr Clr Drug Dosing 134.1 eGFR 110.79 BUN/Creatinine Ratio 19.4 Glucose 83 Calcium 8.5 L Magnesium 1.5 L Current Inpatient Medications Current Inpatient Medications: Current Inpatient Medications Acetaminophen (Acetaminophen 325 Mg Tab) 650 mg PO Q4H PRN PRN Reason: Pain or Fever Stop: 12/18/24 14:40 Aspirin (Aspirin 81 Mg Ectab) 81 mg PO DAILY [place] Stop: 12/19/24 08:59 Last Admin: 11/26/24 08:37 Dose: 81 mg Atorvastatin Calcium (Atorvastatin 40 Mg Tab) 80 mg PO QPM [place] Stop: 12/18/24 20:59 Last Admin: 11/25/24 20:47 Dose: 80 mg Baclofen (Baclofen 10 Mg Tab) 10 mg PO BID PRN PRN Reason: Pain Stop: 12/18/24 14:40 Duloxetine HCl (Duloxetine Hcl 30 Mg Cap) 30 mg PO DAILY [place] Stop: 12/19/24 08:59 Last Admin: 11/26/24 08:38 Dose: 30 mg Enoxaparin Sodium (Enoxaparin Inj 40 Mg/0.4 Ml Syr) 40 mg SQ Q24H [place] Stop: 12/18/24 20:59 Last Admin: 11/25/24 20:47 Dose: 40 mg Fludrocortisone Acetate (Fludrocortisone Acetate 0.1 Mg Tab) 0.1 mg PO DAILY [place] Stop: 12/19/24 08:59 Last Admin: 11/26/24 08:38 Dose: 0.1 mg Hydrocortisone (Hydrocortisone 10 Mg Tab) 20 mg PO 0800 [place] Stop: 12/26/24 07:59 Last Admin: 11/26/24 08:33 Dose: 20 mg Hydrocortisone (Hydrocortisone 10 Mg Tab) 10 mg PO 2000 [facility] Stop: 12/26/24 19:59 Hydrocortisone (Hydrocortisone 10 Mg Tab) 10 mg PO 1400 [place] Stop: 12/26/24 13:59 Magnesium Sulfate/Dextrose (Magnesium Sulfate / D5w) 1 gm in 100 mls @ 50 mls/hr IV Q2H [place] Stop: 11/26/24 12:14 Last Admin: 11/26/24 10:15 Dose: 50 mls/hr Levothyroxine Sodium (Levothyroxine Sodium 50 Mcg Tablet) 50 mcg PO DAILYBB [place] Stop: 12/19/24 06:29 Last Admin: 11/26/24 06:33 Dose: 50 mcg Loperamide HCl (Loperamide Hcl 2 Mg Cap) 2 mg PO BID PRN PRN Reason: Diarrhea Stop: 12/23/24 14:17 Last Admin: 11/24/24 06:25 Dose: 2 mg Magnesium Oxide (Magnesium Oxide 400 Mg Tab) 400 mg PO QAM [place] Stop: 12/26/24 08:59 Last Admin: 11/26/24 08:58 Dose: 400 mg Mirtazapine (Mirtazapine Tab 15 Mg Tab) 15 mg PO HS [facility] Stop: 12/22/24 20:59 Last Admin: 11/25/24 20:47 Dose: 15 mg Modafinil (Modafinil 100 Mg Tab) 100 mg PO QAM [facility] Stop: 12/25/24 08:59 Last Admin: 11/26/24 08:57 Dose: 100 mg Ondansetron HCl (Ondansetron Inj 2 Mg/Ml 2 Ml Vial) 4 mg IV Q4H PRN PRN Reason: Nausea Stop: 12/22/24 16:31 Pantoprazole Sodium (Pantoprazole 40 Mg Tab) 40 mg PO DAILY [facility] Stop: 12/19/24 08:59 Last Admin: 11/26/24 08:38 Dose: 40 mg Potassium Chloride (Potassium Chloride Crtab 20 Meq Tabcr) 20 meq PO TID [facility] Stop: 12/18/24 14:59 Last Admin: 11/26/24 08:49 Dose: 20 meq Tamsulosin HCl (Tamsulosin Hcl 0.4 Mg Cap) 0.4 mg PO QAM [facility] Stop: 12/19/24 09:59 Last Admin: 11/26/24 08:38 Dose: 0.4 mg
--- NOTE | 2024-11-26 12:41 | Hospitalist Progress Note ---
Date of Service November 26, 2024 Assessment & Plan (1) Adrenal crisis: Plan: 58-year-old male with a history of adrenomyeloneuropathy, complex regional pain syndrome who presents in adrenal crisis due to medication noncompliance in the setting of 6 months of worsening depression and weakness. 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 Hannah anayeli. Will follow for updated disposition recommendations from PT, and follow-up for one moreday now that he has been brought back down to 20/10/10 steroid dosing. If no signs of hypertension, electrolyte instability cognitive or worsened cognition and will be medically stable for discharge. Given concern for prolonged symptoms with severe adrenal crisis the setting medication noncompliance rehab would likely be beneficial both for a transitional period of medication compliance observation, and for strengthening prior to returning home. Adrenomyeloneuropathy, complex regional pain syndrome With spinal cord atrophy. Follows with [facility]. Brain and spine MRIs reviewed, MRIB 07/2024 did not show any acute processes. Single enhancing focus of left frontal white matter was noted postcontrast images did not show any enhancing lesions. Significant spinal cord atrophy was seen on MRI 07/2024. Dissipate underlying progressive weakness continue to brace however patient also likely has a acute at least partially reversible component both from his acute adrenal crisis and acute deconditioning Patient's predominant concern and quality of life protractor is diffuse pain; Not have good success following with pain management, inadequate control with duloxetine and inadequate improvement with gabapentin. Remeron deferred at patient's request until discussed with neurology Messages left with [facility]/neurology to review patient's case. Home neurologist was not available to review case. Did review w/ on-call neurology. Possible for his underlying disease to affect his cognition certainly although there were no signs of this on an MRI within the last few months and his depression, AI, and potential delirium are all likely causing acute decompensation. While there may be an underlying element from his progressive disease, agree with treatment of potential depression and AI as recommended by hospitalist and psychiatric team. Patient is with notably improved energy and engagement. Has been started on modafinil and mirtazapine at bedtime. Recommend engaging with PT/OT as tolerated, and continuing duloxetine/baclofen at this time Hypotension Improved. Due to adrenal crisis Orals encouraged Major depression, possibly with hypoactive psychosis During admission was a temporary psychiatric hold. Has had marked improvement with treatment of his underlying UTI, addition of modafinil which has not provoked any delirium, in addition of nighttime Remeron. He is no longer a psychiatric hold as clinically improved and may progress to disposition planning Continue modafinil 100 mg, Remeron 15 mg at bedtime now and on discharge. Further up titration of modafinil is not recommended at this time Diarrhea Chronic C. difficile is negative Imodium symptomatic treatment ? UTI Report of possible dark/reddish urine. Haq bag appears dark orange in color. Remove haq. UA pending. (2) Hypotension: (3) Severe dehydration: (4) Depression: (5) Hyponatremia: (6) Hypokalemia: (7) Noncompliance with medication regimen: Admission and Anticipated Discharge Date Admission Date: November 18, 2024 Subjective Markedly improved today. Still with some intermittent confusion intentionality but with good energy good eye contact and has made noticeable strides since admission. Did review with psych, agree that with patient's current progression no longer require psychiatric hold. No plans for BHU admission at this time. Patient is doing well with modafinil 100 and Remeron 15 at bedtime and recommend continuing these. Appreciate recommendations. Patient is seen with his at the bedside who are also pleased with his progress, noting some residual delirium and confusion from progress to which they expressed appreciation for his course.Patient did report some blood in the urine. Has progressed enough that cath can be removed, and will check UA to rule out associated infection. No fever/chills or sweats and no pain from his Haq site Physical Exam Physical Exam: General: A&Ox3. NAD. Cooperative. HEENT: Atraumatic, normocephalic. Pulm: CTAB A&P. -wheezes, -rales, -rhonchi. Symmetrical chest rise. No increased work of breathing. No respiratory distress. Cardiac: RRR, -mrg. Radial pulses intact and symmetrical. Abdominal: Nontender, nondistended, soft. BS present. : Haq in place. Dark orange urine. Results & Data Results & Data Vital Signs (Past 12 Hours) Vital Signs Temp Pulse Resp BP Pulse Ox O2 Del Method 11/26/24 11:29 36.7 C 66 18 136/85 98 Room Air 11/26/24 07:51 36.8 C 72 18 131/78 100 Room Air 11/26/24 05:13 36.6 C 67 18 119/66 99 Room Air PG Care Time/CCT Total # of Minutes Spent Total Time Spent with Patient: Total time spent is greater than 50% in coordination of care (as documented) at patient's floor/unit and/or counseling patient: Coding Level of Care Code 95672 SUB INP/OBS CARE 2/35MIN Diagnoses Adrenal crisis E27.2 Hypotension due to hypovolemia E86.1 Hypotension type: hypotension due to hypovolemia Severe dehydration E86.0 Depression F32.A Hyponatremia E87.1 Hypokalemia E87.6 Noncompliance with medication regimen Z91.148 (2) Hypotension Hypotension type: hypotension due to hypovolemia Qualified Code(s): E86.1 - Hypovolemia
[2024-11-27 07:52] LABS: Eosinophils # (auto) 0.07 K/uL (0.00-0.50); Hemoglobin 12.6 g/dl (14.0-18.0); Immature Granulocytes # (auto) 0.03 K/uL (0.01-0.20); Immature Granulocytes % (auto) 0.4 %; Lymphocytes # (auto) 1.29 K/uL (1.20-3.40); Lymphocytes % (auto) 18.3 %; Mean Corpuscular Hemoglobin 33.2 pg (25.0-34.0); Mean Corpuscular Volume 92.1 fL (80.0-100.0); Monocytes # (auto) 0.39 K/uL (0.11-0.59); Monocytes % (auto) 5.5 %; Neutrophils # (auto) 5.27 K/uL (1.40-6.50); Neutrophils % (auto) 74.8 %; Platelet Count 184 K/uL (130-400); RDW Coefficient of Variation 15.4 % (11.5-14.5); RDW Standard Deviation 51.8 fL (36.4-46.3); White Blood Count 7.05 K/ul (4.8-10.8)
--- NOTE | 2024-11-27 08:02 | Hospitalist Progress Note ---
Date of Service November 27, 2024 Assessment & Plan (1) Adrenal crisis: Plan: 58-year-old male with a history of adrenomyeloneuropathy, complex regional pain syndrome who presents in adrenal crisis due to medication noncompliance in the setting of 6 months of worsening depression and weakness. 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 Follows with [facility]. Brain and spine MRIs reviewed, MRIB 07/2024 did not show any acute processes. Single enhancing focus of left frontal white matter was noted postcontrast images did not show any enhancing lesions. Significant spinal cord atrophy was seen on MRI 07/2024. Dissipate underlying progressive weakness continue to brace however patient also likely has a acute at least partially reversible component both from his acute adrenal crisis and acute deconditioning Patient is with notably improved energy and engagement. Has been started on modafinil and mirtazapine at bedtime. Recommend engaging with PT/OT as tolerated, and continuing duloxetine/baclofen at this time Hypotension Improved. Due to adrenal crisis Major depression, possibly with hypoactive psychosis During admission was a temporary psychiatric hold. Has had marked improvement with treatment of his underlying UTI, addition of modafinil which has not provoked any delirium, in addition of nighttime Remeron. He is no longer a psychiatric hold as clinically improved and may progress to disposition planning Continue modafinil 100 mg, Remeron 15 mg at bedtime now and on discharge. Further up titration of modafinil is not recommended at this time Diarrhea Chronic C. difficile is negative Imodium symptomatic treatment ? UTI Report of possible dark/reddish urine. Haq bag appears dark orange in color. Remove haq. UA pending. (2) Hypotension: (3) Severe dehydration: (4) Depression: (5) Hyponatremia: (6) Hypokalemia: (7) Noncompliance with medication regimen: Admission and Anticipated Discharge Date Admission Date: November 18, 2024 Subjective Markedly improved today. Still with some intermittent confusion, continues with good energy & good eye contact. Did review with psych, no longer require psychiatric hold. No plans for BHU admission. Patient is doing well with modafinil 100 and Remeron 15 at bedtime, discussion with Psyche to determine is modafanil or ability for dc Physical Exam Physical Exam: pt seems in good spirits, no distress weakness but no focal neurologic loss Results & Data Results & Data Vital Signs (Past 12 Hours) Vital Signs Temp Pulse Pulse Resp BP Pulse Ox O2 Del Method 11/27/24 07:30 63 11/27/24 07:01 98.6 F 98 H 17 91/60 L 98 Room Air 11/27/24 03:38 98.2 F 63 18 121/75 97 Room Air 11/26/24 23:05 98.1 F 67 18 128/80 95 Room Air 11/26/24 21:53 66 Laboratory Results review cbc review chemistry PG Care Time/CCT Total # of Minutes Spent Total Time Spent with Patient: Total time spent is greater than 50% in coordination of care (as documented) at patient's floor/unit and/or counseling patient: Coding Level of Care Code 58780 SUB INP/OBS CARE 3/50MIN Diagnoses Adrenal crisis E27.2 Hypotension due to hypovolemia E86.1 Hypotension type: hypotension due to hypovolemia Severe dehydration E86.0 Depression F32.A Hyponatremia E87.1 Hypokalemia E87.6 Noncompliance with medication regimen Z91.148 (2) Hypotension Hypotension type: hypotension due to hypovolemia Qualified Code(s): E86.1 - Hypovolemia
[2024-11-27 08:13] LABS: BUN Creatinine Ratio 17.9 (10-20); Calcium 8.4 mg/dl (8.6-10.3); Creatinine Clr Calc Pharmacy 148.5 ml/min; Magnesium 1.7 mg/dl (1.7-2.4); Potassium 3.5 mmol/L (3.5-5.1)
[2024-11-27 16:08] LABS: Appearance Urine Cloudy (Clear); Bacteria Urine Automated None Seen (None Seen); Bilirubin Urine Negative (Negative); Blood Urine 2+ (Negative); Cast Urine Automated 0-2 /lpf (0-2); Color Urine Yellow; Epithelial Cell Urine Auto 0-2 /hpf (0-2); Glucose Urine UA Negative (Negative); Ketones Urine Trace (Negative); Leukocyte Esterase Urine 1+ (Negative); Nitrite Urine Negative (Negative); Protein Urine Negative (Negative); RBC Urine Automated >20 /hpf (0-2); Specific Gravity Urine 1.014 (1.000-1.030); Urobilinogen Urine Negative (Negative); WBC Urine Automated 0-5 /hpf (0-5); pH Urine 7.5 (4.5-7.5)
--- NOTE | 2024-11-28 07:23 | Hospitalist Progress Note ---
Date of Service November 28, 2024 Assessment & Plan (1) Adrenal crisis: (2) Hypotension: (3) Severe dehydration: (4) Depression: (5) Hyponatremia: (6) Hypokalemia: (7) Noncompliance with medication regimen: Plan 58-year-old male with a history of adrenomyeloneuropathy, complex regional pain syndrome who presents in adrenal crisis due to medication noncompliance in the setting of 6 months of worsening depression and weakness. 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 Follows with [facility]. Brain and spine MRIs reviewed, MRIB 07/2024 did not show any acute processes. Single enhancing focus of left frontal white matter was noted postcontrast images did not show any enhancing lesions. Significant spinal cord atrophy was seen on MRI 07/2024. Dissipate underlying progressive weakness continue to brace however patient also likely has a acute at least partially reversible component both from his acute adrenal crisis and acute deconditioning Patient is with notably improved energy and engagement. Has been started on modafinil and mirtazapine at bedtime. Recommend engaging with PT/OT as tolerated, and continuing duloxetine/baclofen at this time Hypotension Improved. Due to adrenal crisis Major depression, possibly with hypoactive psychosis During admission was a temporary psychiatric hold. Has had marked improvement with treatment of his underlying UTI, addition of modafinil which has not provoked any delirium, in addition of nighttime Remeron. He is no longer a psychiatric hold as clinically improved and may progress to disposition planning Continue modafinil 100 mg, Remeron 15 mg at bedtime now and on discharge. Further up titration of modafinil is not recommended at this time Diarrhea Chronic C. difficile is negative Imodium symptomatic treatment UTI urine culture via haq staph 80K sensitivites pending, not symptomatic at this time consider contaminant Admission and Anticipated Discharge Date Admission Date: November 18, 2024 Subjective Continues to improve, at bedside. continues with good energy & good eye contact. feels oral intake could be better Did review with psych, no longer require psychiatric hold. No plans for BHU admission. Patient is doing well with modafinil 100 and Remeron 15 at bedtime, recommend to continue modafinil at dc Physical Exam Physical Exam: pt seems in good spirits, no distress weakness but no focal neurologic loss Results & Data Results & Data Vital Signs (Past 12 Hours) Vital Signs Temp Pulse Pulse Resp BP Pulse Ox O2 Del Method 11/28/24 07:07 68 11/28/24 02:51 97.9 F 63 18 133/85 93 Room Air 11/27/24 22:48 97.9 F 65 18 136/78 94 Room Air 11/27/24 21:50 65 11/27/24 19:51 98.1 F 68 18 139/87 99 Room Air Laboratory Results review cbc review chemistry- repelte K+ PG Care Time/CCT Total # of Minutes Spent Total Time Spent with Patient: Total time spent is greater than 50% in coordination of care (as documented) at patient's floor/unit and/or counseling patient: Coding Level of Care Code 93936 SUB INP/OBS CARE 3/50MIN Diagnoses Adrenal crisis E27.2 Hypotension due to hypovolemia E86.1 Hypotension type: hypotension due to hypovolemia Severe dehydration E86.0 Depression F32.A Hyponatremia E87.1 Hypokalemia E87.6 Noncompliance with medication regimen Z91.148 (2) Hypotension Hypotension type: hypotension due to hypovolemia Qualified Code(s): E86.1 - Hypovolemia
[2024-11-28 08:25] LABS: Eosinophils # (auto) 0.14 K/uL (0.00-0.50); Eosinophils % (auto) 1.9 %; Hematocrit (blood only) 34.4 % (42.0-52.0); Hemoglobin 12.7 g/dl (14.0-18.0); Immature Granulocytes # (auto) 0.04 K/uL (0.01-0.20); Immature Granulocytes % (auto) 0.5 %; Mean Corpuscular Hemoglobin 33.8 pg (25.0-34.0); Mean Corpuscular Hgb Conc 36.9 g/dL (32.0-36.0); Mean Corpuscular Volume 91.5 fL (80.0-100.0); Mean Platelet Volume 10.2 fL (9.4-12.4); Monocytes # (auto) 0.61 K/uL (0.11-0.59); Monocytes % (auto) 8.3 %; Neutrophils # (auto) 4.89 K/uL (1.40-6.50); Neutrophils % (auto) 66.3 %; Platelet Count 187 K/uL (130-400); RDW Coefficient of Variation 15.3 % (11.5-14.5); RDW Standard Deviation 51.5 fL (36.4-46.3); Red Blood Count 3.76 M/uL (4.70-6.10); White Blood Count 7.38 K/ul (4.8-10.8)
[2024-11-28 08:55] LABS: BUN Creatinine Ratio 13.8 (10-20); Calcium 8.4 mg/dl (8.6-10.3); Creatinine Clr Calc Pharmacy 127.9 ml/min; Potassium 3.1 mmol/L (3.5-5.1)
[2024-11-28] MEDS: POTASSIUM CHLORIDE CRTAB 20 MEQ TABCR PO SCH (20:18)
[2024-11-28] MEDS: MAGNESIUM OXIDE 400 MG TAB PO SCH (20:18)
[2024-11-28 22:44] VITALS: RESP 18
[2024-11-29 07:32] LABS: BUN Creatinine Ratio 15.3 (10-20); Calcium 8.4 mg/dl (8.6-10.3); Creatinine Clr Calc Pharmacy 140.6 ml/min; Magnesium 1.6 mg/dl (1.7-2.4); Potassium 3.2 mmol/L (3.5-5.1)
[2024-11-29 07:36] VITALS: TEMP 98.4
[2024-11-29 08:37] LABS: Eosinophils # (auto) 0.07 K/uL (0.00-0.50); Eosinophils % (auto) 0.9 %; Hematocrit (blood only) 35.2 % (42.0-52.0); Hemoglobin 12.7 g/dl (14.0-18.0); Immature Granulocytes # (auto) 0.04 K/uL (0.01-0.20); Immature Granulocytes % (auto) 0.5 %; Lymphocytes # (auto) 1.98 K/uL (1.20-3.40); Lymphocytes % (auto) 25.6 %; Mean Corpuscular Hemoglobin 33.2 pg (25.0-34.0); Mean Corpuscular Hgb Conc 36.1 g/dL (32.0-36.0); Mean Corpuscular Volume 91.9 fL (80.0-100.0); Mean Platelet Volume 9.8 fL (9.4-12.4); Monocytes # (auto) 0.86 K/uL (0.11-0.59); Monocytes % (auto) 11.1 %; Neutrophils # (auto) 4.77 K/uL (1.40-6.50); Neutrophils % (auto) 61.9 %; Platelet Count 192 K/uL (130-400); RDW Coefficient of Variation 15.4 % (11.5-14.5); RDW Standard Deviation 51.8 fL (36.4-46.3); Red Blood Count 3.83 M/uL (4.70-6.10); White Blood Count 7.72 K/ul (4.8-10.8)
[2024-11-29] MEDS: MAGNESIUM OXIDE 400 MG TAB PO SCH (09:30)
[2024-11-29] MEDS: POTASSIUM CHLORIDE CRTAB 20 MEQ TABCR PO SCH (09:30)
--- NOTE | 2024-11-29 09:33 | Discharge Summary ---
Discharge Summary Date of Service November 29, 2024 Principal Dx & Hospital Course #1 = Principal Diagnosis (1) Adrenal crisis: (2) Hypotension: (3) Severe dehydration: (4) Depression: (5) Hyponatremia: (6) Hypokalemia: (7) Noncompliance with medication regimen: Plan 58-year-old male with a history of adrenomyeloneuropathy, complex regional pain syndrome who presents in adrenal crisis due to medication noncompliance in the setting of 6 months of worsening depression and weakness. 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 Follows with [facility]. Brain and spine MRIs reviewed, MRIB 07/2024 did not show any acute processes. Single enhancing focus of left frontal white matter was noted postcontrast images did not show any enhancing lesions. Significant spinal cord atrophy was seen on MRI 07/2024. Dissipate underlying progressive weakness continue to brace however patient also likely has a acute at least partially reversible component both from his acute adrenal crisis and acute deconditioning Patient is with notably improved energy and engagement. Has been started on modafinil and mirtazapine at bedtime. Recommend engaging with PT/OT as tolerated, and continuing duloxetine/baclofen at this time Hypotension Improved. Due to adrenal crisis Major depression, possibly with hypoactive psychosis During admission was a temporary psychiatric hold. Has had marked improvement with treatment of his underlying UTI, addition of modafinil which has not provoked any delirium, in addition of nighttime Remeron. He is no longer a psychiatric hold as clinically improved and may progress to disposition planning Continue modafinil 100 mg, Remeron 15 mg at bedtime now and on discharge. Further up titration of modafinil is not recommended at this time Diarrhea Chronic C. difficile is negative Imodium symptomatic treatment UTI urine culture via haq staph 80K sensitivites pending, not symptomatic at this time consider contaminant Admission HPI Per Admitting Provider Chioma is a 58-year-old male with PMH of adrenal myelo neuropathy, adrenoleukodystrophy, CRPS, depression, hypogonadism, and mixed hyperlipidemia. 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 Patient's (Olamide) at bedside provides most of the history. 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 He is not eating or drinking well at home. was fearful that he was heading into an adrenal crisis over the past few days, as he has done so in the past and was beginning to show symptoms: Generalized weakness, SOB with exertion, grogginess, and mottled skin. Patient reports that his depression has been worsening over the past several years. reports that he began to go downhill after his heart attack 3 years ago; history of his father dying of a heart attack when patient was 15 years old. Patient also has complex regional pain syndrome and chronic neuropathy in the soles of his feet; he takes gabapentin, but is currently switching to Keppra as this is not helping. Patient's helps to manage the medicine at home. She reports that he received 80 mg of p.o. hydrocortisone prior to coming in. He also took his Jardiance, Protonix, gabapentin, and fludrocortisone this morning. No recent change in medications. Patient is amenable to seeing inpatient psychiatry while he is here; he denies thoughts of self-harm, suicidal ideations, or thoughts of harming others. Patient does not use supplemental oxygen at home or CPAP at night. He endorses chewing tobacco, but denies any smoking or recent alcohol use. Patient/patient's recently adopted a 6-month-old [place] mountain dog (Maxim). Patient's BP was 64/32 on arrival and there were no peripheral pulses found. At time of admission, BP is improved to 104/59. ED course: NSS 3000 mL IV Cefepime 2000 mg IV ROS: Patient endorses generalized fatigue, dizziness/lightheadedness with walking, new onset ARTHUR, chest pain (which patient believes is secondary to CRPS and incisional pain from prior cardiac procedure), and/V/D, burning with urination (chronic), and trace blood in the urine and stool (chronic). Patient denies fever, chills, night sweats, syncope, SOB at rest, chest palpitations, pleuritic CP, cough, or abdominal pain. Discharge Exam General-alert and oriented x3, no fever, no chills HEENT-head atraumatic and normocephalic, pupils equal and reactive to light, extraocular muscles intact Neck-no lymphadenopathy or thyromegaly, trachea midline Chest-clear to auscultation. No rales, wheezing or rhonchi Cardiac-regular rate and rhythm, normal S1 and S2 Abdomen-normal bowel sounds, no hepatosplenomegaly Extremities-no cyanosis, clubbing, or edema Neuro-cranial nerves II through XII intact, motor and sensory function within normal limits, strength symmetrical, no focal deficits Psych-normal affect, normal mood Discharge Plan Discharge Items Patient Disposition: Transfer Inpatient Rehab Fac Reason For Visit: HYPOTENSION, ADRENAL CRISIS Discharge Diagnosis: Adrenal crisis, hypotension Activity: Resume your previous activity Non-emergency contact: Primary Care Provider Call non-emergency contact if: your symptoms worsen Follow-up/Referrals: Leslye Solitario [Primary Care Provider] - Diet: Regular and Heart Healthy Addtl Attending Provider Instructions: Take hydrocortisone 3 times daily as prescribed. Take modafinil and Remeron as prescribed for depression. Potassium and magnesium have been increased to 3 times daily for depression Pending Studies at Discharge: No Stand-Alone Forms: My [facility] Skilled Items Patient informed of condition?: Yes DNR: No Discharge Level of Care: Acute rehab Communicable Disease: No Discharge Prognosis: Stable Lines: None Urinary Catheter: No Medications and DC Order Prescriptions: New tamsulosin 0.4 mg Capsule 0.4 mg PO QAM Qty: 0 0RF magnesium oxide 400 mg (241.3 mg magnesium) Tablet 400 mg PO TID Qty: 0 0RF mirtazapine 15 mg Tablet 15 mg PO HS Qty: 0 0RF modafinil 100 mg Tablet 100 mg PO QAM Qty: 0 0RF hydrocortisone [Cortef] 10 mg Tablet 10 mg PO 1400 Qty: 0 0RF hydrocortisone [Cortef] 10 mg Tablet 10 mg PO 2000 Qty: 0 0RF hydrocortisone [Cortef] 10 mg Tablet 20 mg PO 0800 Qty: 0 0RF Continued dapagliflozin propanediol [Farxiga] 10 mg tablet 10 mg PO DAILY duloxetine 60 mg capsule,delayed release(DR/EC) 60 mg PO DAILY Rx Instructions: Take 60mg w/ 30mg to equal 90mg by mouth every morning. cholecalciferol (vitamin D3) [Vitamin D3] 25 mcg (1,000 unit) capsule 25 mcg PO HS aspirin [Adult Aspirin Regimen] 81 mg tablet,delayed release (DR/EC) 81 mg PO DAILY atorvastatin 80 mg tablet 80 mg PO QPM cyanocobalamin (vitamin B-12) 1,000 mcg/mL solution 1,000 mcg IM MONTHLY fludrocortisone 0.1 mg tablet 0.1 mg PO DAILY pantoprazole [Protonix] 40 mg tablet,delayed release (DR/EC) 40 mg PO DAILY ergocalciferol (vitamin D2) 1,250 mcg (50,000 unit) capsule 1,250 mcg PO WK Rx Instructions: levothyroxine 50 mcg tablet 50 mcg PO DAILY Qty: 90 3RF metoprolol succinate 25 mg tablet extended release 24 hr 12.5 mg PO HS sacubitril-valsartan [Entresto] 49-51 mg tablet 1 tab PO BID Repatha SureClick 140 mg/mL pen injector 140 mg subcut Q14D levetiracetam [Keppra] 250 mg tablet 0 mg PO UD Rx Instructions: As of 11/18/24, pt hasn't started this medication yet. Was supposed to start on the morning of 11/18/41134cz PO QHS x 1 week; 250mg PO BID x 1 week; 250mg AM 500mg PM x 1 week; 500mg BID baclofen 10 mg tablet 10 mg PO BID PRN (Reason: Pain) duloxetine 30 mg capsule,delayed release(DR/EC) 30 mg PO DAILY Rx Instructions: Take 30mg w/ 60mg to equal 90mg by mouth every morning. Discontinued potassium chloride 20 mEq Tablet,Er Particles/Crystals 20 meq PO TID Qty: 100 0RF hydrocortisone [Cortef] 10 mg Tablet See Rx Instructions .ROUTE .COMPLEX Qty: 100 0RF Rx Instructions: Take 20 mg (2 tablets) every morning and 10 mg (1 tablet) in the evening Discharge Orders: Discharge Order (Routine); Ordered 11/29/24 Ordered By: Frankie Buckner Admission Data Admit Date/Time: 11/18/24 12:40 Attending Provider: Frankie Buckner Admit Provider: Mulugeta Garnica Primary Care Provider: Leslye Solitario Other Providers: Mulugeta Garnica; Bruna Shaw; Benjamín Marcelo; Neelima Moralez; Kenia Mitchell; Julian Mata; Araceli Khan; Owen Kelley; Radha Gamboa Hospital Stay Data Consultations 11/18/24 11:28 ED Decision to Admit Stat 11/18/24 14:41 Consult Psychiatry Routine 11/20/24 12:54 Consult Gastroenterology Routine Consult Palliative Care Routine Diagnostic Imagining Performed 11/18/24 10:33 CT abd pelvis IV con only Stat Pending Results Patient Have Any Pending Studies at Discharge: No Discharge Instructions Given to Patient (Per Discharging Provider) Take hydrocortisone 3 times daily as prescribed. Take modafinil and Remeron as prescribed for depression. Potassium and magnesium have been increased to 3 times daily for depression Total Time Total Time Spent Total Time Spent (In Minutes): 45 minutes Coding Level of Care Code 21257 INP/OBS DISCH >30 MIN Diagnoses Adrenal crisis E27.2 Hypotension due to hypovolemia E86.1 Hypotension type: hypotension due to hypovolemia Severe dehydration E86.0 Depression F32.A Hyponatremia E87.1 Hypokalemia E87.6 Noncompliance with medication regimen Z91.148
[2024-11-29 10:59] VITALS: BP 143/80; PULSE 63; O2SAT 99
== END 2024-11-29 12:15 | DRG 644 ==
LOC: ED 08:48 → EDINP 12:40 → SUATTDRO 12:40 → 2S 14:41